=== PATIENT | female | born 1980 | race Caucasian/White ===

== ENCOUNTER 2016-07-20 07:16 | Emergency (ER) | payer MEDICAID ==
[2012-08-22 20:19] VITALS: BMI 25.0
== END 2016-07-20 08:49 | disposition home or self-care (01) ==
LOC: D.ER 07:16
DX: S01.01XA Laceration without foreign body of scalp, initial encounter (principal); W19.XXXA Unspecified fall, initial encounter; Y93.89 Activity, other specified; Y92.019 Unspecified place in single-family (private) house as the place of occurrence of the external cause

== ENCOUNTER 2017-03-13 08:47 | Emergency (ER) | payer MEDICAID ==
[2012-08-22 20:19] VITALS: BMI 25.0
[2017-03-13 11:17] LABS: BASOPHILS 0.4 % (0-2); EOSINOPHILS 2.9 % (0-7); HEMATOCRIT 42.4 % (36.0-48.0); HEMOGLOBIN 14.2 g/dL (12-16); IMMATURE GRANULOCYTES 0.7 % (0-5); LYMPHOCYTES 23.9 % (15-50); MCH 30.7 pg (26.0-34.0); MCHC 33.5 g/dL (31.0-37.0); MCV 91.6 fL (80.0-100.0); MEAN PLATELET VOLUME 9.3 fL (7.4-10.4); MONOCYTES 5.7 % (2-11); NEUTROPHILS 66.4 % (40-80); PLATELET COUNT 291 10x3/uL (130-400); RBC 4.63 10x6/uL (4.00-5.40); WBC 8.9 10x3/uL (4.8-10.8)
[2017-03-13 11:37] LABS: ALBUMIN 3.8 g/dL (3.4-5.0); ALKALINE PHOSPHATASE 110 U/L (46-116); ALT (SGPT) 39 U/L (10-68); CALC OSMOLALITY 278 mosm/kg (275-300); CALCIUM 9.4 mg/dL (8.5-10.1); CARBON DIOXIDE 28.3 mmol/L (21.0-32.0); CHLORIDE - SERUM 104 mmol/L (98-107); CREATININE - SERUM 0.6 mg/dL (0.6-1.3); GLUCOSE 103 mg/dL (74-106); POTASSIUM - SERUM 3.5 mmol/L (3.5-5.1); PROTEIN - SERUM 7.9 g/dL (6.4-8.2); SODIUM 139 mmol/L (136-145); UREA NITROGEN 15 mg/dL (7-18); eGFR NON AFRICAN AMERICAN > 90 mL/min (90-120)
== END 2017-03-13 12:18 | disposition home or self-care (01) ==
LOC: D.ER 08:47
PROVIDERS: Emergency Medicine
DX: R56.9 Unspecified convulsions (principal)

== ENCOUNTER 2019-05-31 10:05 | Emergency (ER) | payer MEDICAID ==
[2019-05-31 10:09] VITALS: Ht 165.1 cm
[2019-05-31] MEDS ORDERED: TRILEPTAL600 MG PO (10:10)
[2019-05-31] MEDS ORDERED: FOLIC ACID1 MG PO (10:11)
[2019-05-31] MEDS ORDERED: VOLTAREN75 MG PO (10:11)
[2019-05-31] MEDS ORDERED: PEPCID AC20 MG PO (10:11)
[2019-05-31] MEDS ORDERED: BUSPAR 15 MG TA15 MG PO (10:11)
[2019-05-31] MEDS ORDERED: LIORESAL 10 MG10 MG PO (10:11)
[2019-05-31 11:06] LABS: BASOPHILS 0.1 % (0-2); EOSINOPHILS 0.6 % (0-7); HEMATOCRIT 31.5 % (36.0-48.0); HEMOGLOBIN 9.7 g/dL (12-16); IMMATURE GRANULOCYTES 1.3 % (0-5); LYMPHOCYTES 8.9 % (15-50); MCH 26.8 pg (26.0-34.0); MCHC 30.8 g/dL (31.0-37.0); MEAN PLATELET VOLUME 8.3 fL (7.4-10.4); MONOCYTES 8.4 % (2-11); NEUTROPHILS 80.7 % (40-80); RBC 3.62 10x6/uL (4.00-5.40); WBC 14.5 10x3/uL (4.8-10.8)
[2019-05-31 11:09] LABS: PLATELET COUNT 642 10x3/uL (130-400)
[2019-05-31 11:27] LABS: CALC OSMOLALITY 280 mosm/kg (275-300); CALCIUM 9.2 mg/dL (8.5-10.1); CHLORIDE - SERUM 102 mmol/L (98-107); CREATININE - SERUM 0.8 mg/dL (0.6-1.3); GLUCOSE 124 mg/dL (74-106); POTASSIUM - SERUM 3.6 mmol/L (3.5-5.1); SODIUM 140 mmol/L (136-145); UREA NITROGEN 14 mg/dL (7-18); eGFR NON AFRICAN AMERICAN 84 mL/min (90-120)
[2019-05-31 11:43] LABS: ALKALINE PHOSPHATASE 219 U/L (46-116); ALT (SGPT) 27 U/L (10-68); BILIRUBIN - TOTAL 0.62 mg/dL (0.2-1.3); PROTEIN - SERUM 8.5 g/dL (6.4-8.2); THYROID STIMULATING HORMONE 1.91 uIU/mL (0.36-3.74)
[2019-05-31 15:20] LABS: APPEARANCE CLEAR (CLEAR); BILIRUBIN NEGATIVE (NEGATIVE); COLOR DK YELLOW (YELLOW); GLUCOSE NEGATIVE (NEGATIVE); KETONE SMALL mg/dL (NEGATIVE); NITRITE NEGATIVE (NEGATIVE); PROTEIN 2+ mg/dL (NEGATIVE)
[2019-05-31 15:22] LABS: BACTERIA MODERATE /hpf (NEGATIVE); RED CELLS - URINE 0-5 /hpf (0-5); WHITE CELLS - URINE 0-5 /hpf (NEGATIVE)
[2019-05-31 15:23] LABS: MUCUS <1+ /lpf (NONE SEEN)
[2019-05-31] MEDS ORDERED: ZOFRAN4 MG PO (15:51)
[2019-05-31] MEDS ORDERED: MACROBID100 MG PO (15:51)
[2019-05-31] MEDS ORDERED: TESSALON PERLE100 MG PO (15:51)
[2019-05-31 16:18] VITALS: BP 137/80
== END 2019-05-31 16:18 | disposition home or self-care (01) ==
LOC: D.ER 10:05
PROVIDERS: Family Medicine
DX: B34.9 Viral infection, unspecified (principal); D64.9 Anemia, unspecified; N39.0 Urinary tract infection, site not specified; G80.9 Cerebral palsy, unspecified; R05 Cough

== ENCOUNTER 2019-06-19 11:13 | Inpatient (IN) | payer MEDICARE ==
[~2019-06-19] VITALS: Ht 165.1 cm; Wt 66.9 kg
--- NOTE | ~2019-06-19 | HEMODYNAMI ---
PATIENT:SCOTTIE CURRIE MEDICAL RECORD: [id number] : 76 LOCATION:D.MS Adam ADMISSION DATE: 06/19/19 Generatedon:07/07/201912:42 Patient name: SCOTTIE CURRIE Patient #: [id number] SSN: : Date of study: 07/07/2019 Page: Of Hemodynamic Procedure Report Patient Data Patient Demographics Procedure consent was obtained First Name: SCOTTIE Gender: Female Last Name: KUSH : 1980 [facility] Initial: L Age: 39 year(s) Patient #: [id number] Race: Unknown Additional ID: [id number] Contact details [address]: [address] [place] [address] State: [place] City: [place] Zip code: [address] Past Medical History Allergies: No known allergies Admission Admission Data Admission Date: 06/19/2019 Admission Time: 17:13 [facility] [place] Height (in.): 65 BSA: 1.74 (m2) Height (cm.): 165.1 BMI: 24.46 (kg/m2) Weight (lbs.): 147 Weight (kg.): 66.68 Procedure Procedure Types Cath Procedure Peripheral Cath Diagnostic Procedure Lay Ups Assembler Peripheral Procedures Gastric G Tube Placement Procedure Description Procedure Date Procedure Date: 07/07/2019 Procedure Start Time: 11:37 Procedure Staff Name Function James Allan MD Performing Physician Susan Quinones RT Image Assembler Nicole Luna RN Nurse Arron Wyatt RT Scrub Procedure Data Cath Procedure Fluoroscopy Diagnostic fluoroscopy Total fluoroscopy Time: 17 time: 17 min min Diagnostic fluoroscopy Total fluoroscopy dose: 380 dose: 380 mGy mGy Contrast Material Contrast Material Type Amount (ml) Isovue 300 12 Diagnostic catheters Device Type Used For End Catheter Placement Merit Impress KA2 5Fr 65CM catheter ([id number]) MIREYA introducer ([id number]) Procedure Medications Medication Administration Route Dosage Heparin Flush Bag added to field 1 bags (1000units/500ml NS) Lidocaine 1% added to field 20 Hemodynamics Rest BSA: 1.74 (m2) O2 Consumption: Estimated: 199.91 (ml/min) O2 Consumption indexed : Estimated:114.89 (ml/min/m) Heart Rate: 106 (bpm) Snapshots Pre Cath Intra NCS Post Cath Vital Signs Time Heart Resp SPO2 etCO2 NIBP Rhythm Pain Sedation Rate (ipm) (%) (mmHg) (mmHg) Status Level (bpm) 11:20:31 106 37 85 32.2 112/78(87) NSR 0 (11) 10(A) , No pain 11:24:31 112 26 97 29.1 124/81(98) NSR 0 (11) 10(A) , No pain 11:28:39 95 22 98 35.2 101/64(84) NSR 0 (11) 10(A) , No pain 11:32:40 92 26 98 30.6 100/66(80) NSR 0 (11) 10(A) , No pain 11:36:44 91 29 99 23.7 90/59(75) NSR 0 (11) 10(A) , No pain 11:40:40 94 43 88 13.7 105/69(84) NSR 0 (11) 10(A) , No pain 11:44:41 98 25 95 41.3 112/71(83) NSR 0 (11) 10(A) , No pain 11:48:49 95 38 100 38.3 102/62(79) NSR 0 (11) 10(A) , No pain 11:52:53 95 32 100 35.9 98/60(74) NSR 0 (11) 10(A) , No pain 11:56:57 95 27 99 38.2 96/59(77) NSR 0 (11) 10(A) , No pain 12:01:00 93 18 99 35.9 87/54(68) NSR 0 (11) 10(A) , No pain 12:04:58 98 14 99 35.9 105/66(77) NSR 0 (11) 10(A) , No pain 12:09:00 99 25 99 34.4 92/65(77) NSR 0 (11) 10(A) , No pain 12:12:57 100 27 99 30.6 92/65(77) NSR 0 (11) 10(A) , No pain 12:16:55 99 19 99 31.3 98/66(77) NSR 0 (11) 10(A) , No pain 12:20:55 99 21 99 34.4 98/72(79) NSR 0 (11) 10(A) , No pain 12:24:52 100 28 99 30.6 103/75(86) NSR 0 (11) 10(A) , No pain 12:28:54 98 23 99 29 108/70(82) NSR 0 (11) 10(A) , No pain 12:33:30 96 16 98 14.5 113/73(86) NSR 0 (11) 10(A) , No pain 12:37:30 101 25 98 12.2 122/79(99) NSR 0 (11) 10(A) , No pain 12:41:34 106 28 98 32.1 116/82(97) NSR 0 (11) 10(A) , No pain Medications Time Medication Route Dose Verified Delivered Reason Notes Effe ctiveness by by 11:48:39 Heparin Flush added 1 James Ramirez used for Bag to bags Jerrell Allan procedure (1000units/500ml field MD TRAVIS NS) 11:48:54 Lidocaine 1% added 20ml James Ramirez for local to vial Jerrell Allan anesthetic field MD TRAVIS Procedure Log Time Note 11:10:15 Patient Height : 65 inches 11:10:21 Patient Weight : 147 lbs 11:11:06 Time tracking: Regular hours (M-F 7:00 - 5:00) 11:11:29 Plan of Care:Hemodynamics will remain stable., Cardiac rhythm will remain stable., Comfort level will be maintained., Respiratory function will remain adequate., Patient/ family verbilizes understanding of procedure., Procedure tolerated without complication., Recovers from procedure without complications.. 11:11:43 Patient received from Med/Surg to IR Alert and oriented. Tansferred to table in Supine position. 11:11:48 Signed procedure consent form obtained from guardian. 11:11:57 H&P Date Dictated: 07/07/2019 Within 30 days and on chart.. 11:12:06 Unable to provide pre-op teaching due to educational barrier. ? 11:12:15 Family in waiting room. 11:12:18 Patient NPO since Midnight. 11:12:29 Patient allergic to No known allergies 11:12:36 Is the patient allergic to Iodine/contrast media? No. 11:12:41 Is patient on blood thinner?No 11:12:54 Patient diabetic? No. 11:12:56 - 11:13:00 ----Pre-sedation anethsthesia assessment.----see anesthesia notes for monitoring of patient during procedure 11:13:07 Previous problem with sedation/anesthesia? No ? 11:13:32 - 11:13:37 Use device set IR Diagnostic 11:13:39 Sterile Angiographic Pack opened to sterile field. 11:13:40 Bag Decanter (2002S) opened to sterile field. 11:13:50 GLIDE CATHETER 5FR ANGLED 65cm (CG507) opened to sterile field. 11:14:20 IV patent on arrival in right forearm with D5/.45%NaCl at KVO. 11:14:29 Right abdomen area was prepped with chlora-prep and draped in sterile fashion 11:14:31 - 11:19:36 ECG and BP/O2 sat monitors applied to patient. 11:19:37 Vital chart was started 11:19:39 Baseline sample Acquired. 11:19:40 Full Disclosure recording started 11:19:41 - 11:19:45 Baseline sample Acquired. 11:19:54 Baseline sample Acquired. 11:20:35 Baseline sample Acquired. 11:21:10 MCFADDEN 260 wire (L62575) opened to sterile field. 11:35:44 - 11:35:47 Physician arrived 11:35:48 --------ALL STOP TIME OUT------ 11:35:49 Final Timeout: patient, procedure, and site verified with staff and physician. All members of the team are in agreement. 11:36:59 Fire Safety Assessment: A--An alcohol-based skin anteseptic being used preoperatively., C--Open oxygen or nitrous oxide is being used. 11:37:05 Procedure started. 11:37:10 Local anesthetic to Abdominal area with Lidocaine 1% by James Allan MD.INITIAL ACCESS ONLY 11:46:34 YUCH needle opened to sterile field. 11:46:35 STOPCOCK 3-Way Large Bore ([id number]) opened to sterile field. 11:46:36 GLIDE WIRE Angled Super Stiff 180cm (UO3507) opened to sterile field. 11:48:39 Heparin Flush Bag (1000units/500ml NS) 1 bags added to field was administered by James Allan MD; used for procedure; Verbal order read back and verified. 11:48:54 Lidocaine 1% 20ml vial added to field was administered by James pat MD; for local anesthetic; Verbal order read back and verified. 11:59:08 GASTRO-ENTERIC 18Fr RM Feeding Tube ([id number]) opened to sterile field. 12:03:37 TORQUE DEVICE PLASTIC .038 ( TD01) opened to sterile field. 12:03:40 A Merit Impress KA2 5Fr 65CM catheter ([id number]) was advanced over the wire and used for . 12:03:[address] Peel-[address]-Way Introducer 22Fr opened to sterile field. 12:03:42 INFLATOR BasixTOUCH (AY8978) opened to sterile field. 12:04:40 Inflate balloon Inflation number: 1 A EVERCROSS 8 X 80 X 135 BALLOON ([id number]( was prepped and advanced across the Undefined1 , then inflated. 12:12:53 A MIREYA introducer (A52880) was advanced over the wire . 12:21:48 Kvng 5Fr OTW embolectomy catheter opened to sterile field. 12:37:16 Procedure ended.(Physican Out) 12:37:40 Fluoroscopy time 17.00 minutes. 12:37:49 Fluoroscopy dose: 380 mGy 12:37:49 Flurop Dose total: 380 12:40:50 Contrast amount:Isovue 300 12ml. 12:40:53 Procedure and supply charges have been captured, reviewed, submitted an d are correct. 12:41:20 Report given to Med/Surg. 12:42:07 Vital chart was stopped Intervention Summary Intervention Notes Time ActionType Lesion and Equipment Used Action# Pressure Duration Attributes 12:04:40 Inflate Undefined1 EVERCROSS 8 X 1 0 00:00 balloon 80 X 135 BALLOON ([id number]( Device Usage Item Name Manufacture Quantity Catalog Number Hospital Part Current M inimal Lot# / Charge Number Stock Stock Serial# Code [facility] 1 [id number] 072634 191441 5 Angiographic Health Pack Bag Decanter Microtek 016924 34489 997629 5 () [employer] GLIDE CATHETER Terumo 1 CG507 844535 978143 5 5FR ANGLED 65cm (CG507) MCFADDEN 260 wire [employer] 1 T47506 795312 09026 178516 5 ([id number]) YUCH needle [employer] 1 P48686 656078 018306 5 [id number] STOPCOCK 3-Way [employer] 1 K87966 184095 2620 484855 5 [id number] Large Bore ([id number]) GLIDE WIRE Terumo 1 EB0150 536557 744835 5 Angled Super Stiff 180cm (UF1274) GASTRO-ENTERIC [place] 1 0100-16LV 060664 553522 5 16Fr Thinglink [facility] Feeding Tube ([id number]) TORQUE DEVICE [place] 1 TD01 933637 408935 270762 5 PLASTIC .038 ( Scientific TD01) Merit Impress Merit 1 [id number] 749538 932403 5 KA2 5Fr 65CM Medical catheter ([id number]) Peel-A-Way [employer] 1 Y91543 292950 458842 935354 5 [id number] Introducer 22Fr INFLATOR Merit 1 SI8310 894791 732693 642781 5 Medminder (YP6636) EVERCROSS 8 X Medtronic 1 [id number] 335583 835506 1 80 X 135 BALLOON ([id number]( MIREYA [employer] 1 O01908 262958 087667 5 introducer (K13274) Kvng 5Fr OTW Anaya 1 [id number] 971461 872890 363978 5 embolectomy Lifesciences catheter Signature Audit [place] Stage Time Signature Unsigned Intra-Procedure 07/07/2019 Susan Quinones 12:42:03 PM RT(R) [address] [place] [address]
[~2019-06-19 11:13] MED LIST: BUSPAR 15 MG TA15 MG PO; FOLIC ACID1 MG PO; LIORESAL 10 MG10 MG PO; MACROBID100 MG PO; PEPCID AC20 MG PO; TESSALON PERLE100 MG PO; TRILEPTAL600 MG PO; VOLTAREN75 MG PO; ZOFRAN4 MG PO
[2019-06-19 11:49] LABS: BASOPHILS 0.2 % (0-2); EOSINOPHILS 0.1 % (0-7); HEMATOCRIT 25.5 % (36.0-48.0); HEMOGLOBIN 7.6 g/dL (12-16); IMMATURE GRANULOCYTES 1.1 % (0-5); LYMPHOCYTES 10.2 % (15-50); MCH 24.7 pg (26.0-34.0); MCHC 29.8 g/dL (31.0-37.0); MCV 82.8 fL (80.0-100.0); MEAN PLATELET VOLUME 8.2 fL (7.4-10.4); MONOCYTES 10.7 % (2-11); NEUTROPHILS 77.7 % (40-80); PLATELET COUNT 878 10x3/uL (130-400); RBC 3.08 10x6/uL (4.00-5.40); RDW 15.9 % (11.5-14.5); WBC 14.3 10x3/uL (4.8-10.8)
--- NOTE | 2019-06-19 11:54 | NUR ---
GUAIC NEGATIVE, DR ARAIZA NOTIFIED
[2019-06-19 12:02] LABS: CALC OSMOLALITY 279 mosm/kg (275-300); CALCIUM 9.7 mg/dL (8.5-10.1); CARBON DIOXIDE 30.8 mmol/L (21.0-32.0); CHLORIDE - SERUM 98 mmol/L (98-107); CREATININE - SERUM 0.8 mg/dL (0.6-1.3); GLUCOSE 114 mg/dL (74-106); POTASSIUM - SERUM 3.5 mmol/L (3.5-5.1); SODIUM 140 mmol/L (136-145); UREA NITROGEN 13 mg/dL (7-18); eGFR NON AFRICAN AMERICAN 84 mL/min (90-120)
[2019-06-19 12:11] LABS: ALKALINE PHOSPHATASE 152 U/L (46-116); ALT (SGPT) 15 U/L (10-68); AMYLASE - SERUM 9 U/L (25-115); BILIRUBIN - TOTAL 0.46 mg/dL (0.2-1.3); LIPASE 69 U/L (73-393); PROTEIN - SERUM 8.9 g/dL (6.4-8.2); TROPONIN-I < 0.017 ng/mL (0.000-0.060)
[2019-06-19 12:18] LABS: ALBUMIN 1.7 g/dL (3.4-5.0)
[2019-06-19 13:19] LABS: HCG SERUM NEGATIVE (NEGATIVE)
[2019-06-19 14:40] LABS: APPEARANCE CLEAR (CLEAR); BILIRUBIN NEGATIVE (NEGATIVE); COLOR YELLOW (YELLOW); GLUCOSE NEGATIVE (NEGATIVE); KETONE NEGATIVE (NEGATIVE); NITRITE NEGATIVE (NEGATIVE); PROTEIN TRACE mg/dL (NEGATIVE); UROBILINOGEN NORMAL (NORMAL)
[2019-06-19 14:41] LABS: WHITE CELLS - URINE 0-5 /hpf (NEGATIVE)
[2019-06-19 14:42] LABS: BACTERIA FEW /hpf (NEGATIVE); EPITHELIAL CELLS 0-5 /hpf (0-5); RED CELLS - URINE 0-5 /hpf (0-5)
[2019-06-19 15:42] VITALS: BP 115/73
[2019-06-19 17:00] VITALS: BP 110/66
[2019-06-19 18:23] LABS: INR 1.43 (0.85-1.17); PROTIME 16.8 SECONDS (11.6-15.0)
[2019-06-19 18:24] LABS: APTT 71.6 SECONDS (22.8-39.4)
--- NOTE | 2019-06-19 20:18 | NUR ---
RECEIVED TO ROOM VIA STRECHER FROM ER. ALERT.ORIENTED.THREE AFFILIATED LIMITED SPEECH. HAS HX OF CP. MOTHER AT BEDSIDE TO ANSWER QUESTIONS. SPO2 @ 87 %. O2 @ 2L PER NC PLACED. SPO2 @ 96 %. IV TO RAC WITHOUT REDNESS OR EDEMA NOTED. ORIENTED TO ROOM. CL IN REACH
--- NOTE | 2019-06-19 22:38 | NUR ---
PRBC STARTED TO RAC WITH NO REACITONS NOTED. WILL CONTINUE TO MONITOR AND NOTE CHANGES.
[2019-06-20] VITALS (8 sets, daily range): BP systolic 100–137; BP diastolic 60–77; BMI 24.5
--- NOTE | 2019-06-20 02:20 | NUR ---
PRBC COMPLETED WITH NO REACTIONS NOTED. MOTHER AT BEDSIDE.
[2019-06-20 05:14] LABS: BASOPHILS 0.2 % (0-2); EOSINOPHILS 0.6 % (0-7); HEMATOCRIT 26.7 % (36.0-48.0); IMMATURE GRANULOCYTES 0.9 % (0-5); LYMPHOCYTES 9.4 % (15-50); MCH 25.4 pg (26.0-34.0); MCV 84.8 fL (80.0-100.0); MEAN PLATELET VOLUME 8.2 fL (7.4-10.4); NEUTROPHILS 77.9 % (40-80); PLATELET COUNT 842 10x3/uL (130-400); RBC 3.15 10x6/uL (4.00-5.40); RDW 15.9 % (11.5-14.5); WBC 12.4 10x3/uL (4.8-10.8)
[2019-06-20 05:26] LABS: ALBUMIN 1.4 g/dL (3.4-5.0); ALKALINE PHOSPHATASE 129 U/L (46-116); ALT (SGPT) 12 U/L (10-68); BILIRUBIN - TOTAL 0.35 mg/dL (0.2-1.3); CALC OSMOLALITY 283 mosm/kg (275-300); CALCIUM 9.1 mg/dL (8.5-10.1); CARBON DIOXIDE 31.3 mmol/L (21.0-32.0); CHLORIDE - SERUM 102 mmol/L (98-107); CREATININE - SERUM 0.7 mg/dL (0.6-1.3); GLUCOSE 99 mg/dL (74-106); MAGNESIUM - SERUM 2.5 mg/dL (1.8-2.4); PROTEIN - SERUM 8.1 g/dL (6.4-8.2); SODIUM 142 mmol/L (136-145); UREA NITROGEN 14 mg/dL (7-18); eGFR NON AFRICAN AMERICAN > 90 mL/min (90-120)
[2019-06-20 08:42] LABS: % SATURATION 12 % (15-55); IRON 17 ug/dl (35-150); TOTAL IRON BIND CAPACITY 134 ug/dl (260-445); UNSAT IRON BIND CAPACITY 117 ug/dl (150-375)
--- NOTE | 2019-06-20 10:55 | NUR ---
RESTING IN BED, MOTHER IN ROOM, IV INFUSING, CONT TO MONITOR FOR BLEEDING, SUPP GIVEN PER RECTUM, WILL OBTAIN STOOL SPECIMEN
--- NOTE | 2019-06-20 14:53 | NUR ---
1350 TAKEN TO IR FOR PROCEDURE
[2019-06-20 15:28] LABS: BASOPHILS 0.1 % (0-2); EOSINOPHILS 0.6 % (0-7); HEMATOCRIT 26.2 % (36.0-48.0); HEMOGLOBIN 8.1 g/dL (12-16); LYMPHOCYTES 8.4 % (15-50); MCHC 30.9 g/dL (31.0-37.0); MCV 84.2 fL (80.0-100.0); MEAN PLATELET VOLUME 8.3 fL (7.4-10.4); MONOCYTES 9.5 % (2-11); NEUTROPHILS 80.4 % (40-80); PLATELET COUNT 859 10x3/uL (130-400); RBC 3.11 10x6/uL (4.00-5.40); RDW 15.7 % (11.5-14.5); WBC 13.6 10x3/uL (4.8-10.8)
[2019-06-20 15:29] LABS: PROTEIN - BODY FLUID 5.4 G/DL
[2019-06-20 15:33] LABS: NEUT - BF 87 %
[2019-06-20 15:36] LABS: CALC OSMOLALITY 282 mosm/kg (275-300); CALCIUM 8.2 mg/dL (8.5-10.1); CHLORIDE - SERUM 104 mmol/L (98-107); CREATININE - SERUM 0.6 mg/dL (0.6-1.3); GLUCOSE 99 mg/dL (74-106); POTASSIUM - SERUM 3.9 mmol/L (3.5-5.1); SODIUM 142 mmol/L (136-145); UREA NITROGEN 12 mg/dL (7-18); eGFR NON AFRICAN AMERICAN > 90 mL/min (90-120)
[2019-06-20 15:37] LABS: INR 1.47 (0.85-1.17); PROTIME 17.3 SECONDS (11.6-15.0)
[2019-06-20 15:38] LABS: APTT 58.9 SECONDS (22.8-39.4)
--- NOTE | 2019-06-21 02:32 | NUR ---
Slowed fluids down to 100ml/hr per order. Fluids were running at 200ml/hr.
[2019-06-21 04:00] VITALS: BP 105/67
[2019-06-21 05:34] LABS: BASOPHILS 0.1 % (0-2); EOSINOPHILS 1.4 % (0-7); HEMATOCRIT 27.5 % (36.0-48.0); HEMOGLOBIN 8.2 g/dL (12-16); LYMPHOCYTES 6.9 % (15-50); MCH 25.2 pg (26.0-34.0); MCHC 29.8 g/dL (31.0-37.0); MCV 84.6 fL (80.0-100.0); MEAN PLATELET VOLUME 8.3 fL (7.4-10.4); MONOCYTES 11.6 % (2-11); PLATELET COUNT 824 10x3/uL (130-400); RBC 3.25 10x6/uL (4.00-5.40); RDW 15.9 % (11.5-14.5); WBC 11.2 10x3/uL (4.8-10.8)
[2019-06-21 05:41] LABS: ALKALINE PHOSPHATASE 129 U/L (46-116); ALT (SGPT) 12 U/L (10-68); BILIRUBIN - TOTAL 0.24 mg/dL (0.2-1.3); CALCIUM 8.3 mg/dL (8.5-10.1); CARBON DIOXIDE 26.9 mmol/L (21.0-32.0); CHLORIDE - SERUM 108 mmol/L (98-107); CREATININE - SERUM 0.6 mg/dL (0.6-1.3); GLUCOSE 115 mg/dL (74-106); MAGNESIUM - SERUM 2.3 mg/dL (1.8-2.4); PROTEIN - SERUM 7.5 g/dL (6.4-8.2); SODIUM 143 mmol/L (136-145); eGFR NON AFRICAN AMERICAN > 90 mL/min (90-120)
[2019-06-21 05:49] LABS: ALBUMIN 1.2 g/dL (3.4-5.0); CALC OSMOLALITY 283 mosm/kg (275-300); UREA NITROGEN 8 mg/dL (7-18)
[2019-06-21 09:37] VITALS: BP 131/73
--- NOTE | 2019-06-21 10:37 | NUR ---
RESTING IN BED, MOTHER IN ROOM, NO DISTRESS NOTED, WILL CONT IV FLUIDS AND MIRALAX, NEED STOOL SPECIMEN
[2019-06-21 12:05] VITALS: BP 115/67
[2019-06-21 15:58] VITALS: BP 113/62
--- NOTE | 2019-06-21 20:10 | NUR ---
AWAKE,ALERT.WATCHING TV QUEITLY. NO CONCERNS NOTED. NO DISTRESS NOTED. IV TO RAC INTACT WITHOUT REDNESS OR EDEMA NOTED. CL IN REACH
[2019-06-21 20:51] VITALS: BP 104/57
[2019-06-22] VITALS: BP 134/82
[2019-06-22 00:21] VITALS: BP 115/60
--- NOTE | 2019-06-22 01:43 | NUR ---
I have reviewed this patient and I concur with the Shift Assessment completed by the Licensed Practical Nurse today this shift.
[2019-06-22 05:08] VITALS: BP 117/80
[2019-06-22 05:41] LABS: ALBUMIN 1.2 g/dL (3.4-5.0); ALKALINE PHOSPHATASE 140 U/L (46-116); BILIRUBIN - TOTAL 0.32 mg/dL (0.2-1.3); CALCIUM 8.1 mg/dL (8.5-10.1); CHLORIDE - SERUM 107 mmol/L (98-107); CREATININE - SERUM 0.5 mg/dL (0.6-1.3); GLUCOSE 119 mg/dL (74-106); MAGNESIUM - SERUM 2.1 mg/dL (1.8-2.4); SODIUM 143 mmol/L (136-145); eGFR NON AFRICAN AMERICAN > 90 mL/min (90-120)
[2019-06-22 05:43] LABS: ALT (SGPT) 16 U/L (10-68); CALC OSMOLALITY 282 mosm/kg (275-300); POTASSIUM - SERUM 3.3 mmol/L (3.5-5.1); UREA NITROGEN 4 mg/dL (7-18)
[2019-06-22 06:01] LABS: BASOPHILS 0.1 % (0-2); EOSINOPHILS 1.3 % (0-7); HEMATOCRIT 25.3 % (36.0-48.0); HEMOGLOBIN 7.7 g/dL (12-16); IMMATURE GRANULOCYTES 0.9 % (0-5); LYMPHOCYTES 8.4 % (15-50); MCH 25.2 pg (26.0-34.0); MCHC 30.4 g/dL (31.0-37.0); MCV 82.7 fL (80.0-100.0); MONOCYTES 10.8 % (2-11); NEUTROPHILS 78.5 % (40-80); RBC 3.06 10x6/uL (4.00-5.40); RDW 16.4 % (11.5-14.5); WBC 11.2 10x3/uL (4.8-10.8)
[2019-06-22 06:05] LABS: PLATELET COUNT 659 10x3/uL (130-400)
--- NOTE | 2019-06-22 07:55 | NUR ---
PT LYING IN BED WITH MOTHER AT BEDSIDE, MOTHER INQUIRED ON WHEN BONE BIOPSY WILL BE DONE. EXPLAINED HARD TO GIVE A TIME AND KNOW WHEN SPECIALS WILL BE IN BUT ORDERS HAVE BEEN PUT INTO COMPUTER. CONSENTS SIGNED, PT HAS BEEN NPO ALL NIGHT, NO NEEDS VOICED BY PATIENTS ALL QUESTIONS ANSWERED BEST POSSIBLE, WILL CONTINUE WITH PLAN OF CARE
[2019-06-22 08:00] LABS: INR 1.35 (0.85-1.17); PROTIME 16.1 SECONDS (11.6-15.0)
[2019-06-22 08:01] LABS: APTT 59.7 SECONDS (22.8-39.4)
[2019-06-22 08:23] VITALS: BP 131/73
--- NOTE | 2019-06-22 09:25 | NUR ---
PT'S ORDERS ARE TO HAVE A UNIOT OF BLOOD IF PT HGB LESS THAN 8. ORDERED ANOTHER UNIT OF BLOOD FOR TODAY AND WILL TRANSFUSE ONCE READY.
--- NOTE | 2019-06-22 09:26 | NUR ---
I have reviewed this patient and I concur with the Shift Assessment completed by the Licensed Practical Nurse today this shift.
--- NOTE | 2019-06-22 11:45 | NUR ---
STARTED PT 1UNIT OF BLOOD PT LYING IN BED MOTHER AT BEDSIDE CONTINUE WITH PLAN OF CARE
[2019-06-22 12:29] VITALS: BP 122/77
[2019-06-22 12:49] VITALS: Ht 165.1 cm; Wt 66.9 kg
--- NOTE | 2019-06-22 13:24 | NUR ---
PT LYING IN BED WITH MOTHER AT BEDSIDE, UNIT OF BLOOD STILL TRANSFUSING, NO S/SX OF DISTRESS, CL IN REACH BED IN LOWEST POSITION, CONTINUE WITH PLAN OF CARE
--- NOTE | 2019-06-22 14:55 | MORECARE ---
CASE MANAGEMENT DISCHARGE SUMMARY PATIENT: SCOTTIE CURRIE UNIT: [id number] ADM DATE: 06/19/19 AGE: 39 : [birth year] SEX: F ROOM/BED: D.2202 AUTHOR: VERITODOC PHYSICIAN: REFERRING PHYSICIAN: JADON SMITH MD DATE OF SERVICE: 06/22/19 Discharge Plan Patient Name: SCOTTIE CURRIE Facility: [facility]:[place] : 1980 Planned Disposition: Home or Self Care Anticipated Discharge Date: Discharge Date: Expected LOS: Initial Reviewer: [email or web address] Initial Review Date: 06/19/2019 Generated: 06/22/19 3:54 pm Comments DCP- Discharge Planning Updated by [email or web address]: Donna Bledsoe on 06/22/19 1:[address] Patient Name: SCOTTIE CURRIE Admission Status: ER Accout number: [id number] Admission Date: 06-19-2019 : 1980 Admission Diagnosis: Attending: JADON SMITH Current LOS: 3 Anticipated DC Date: Planned Disposition: Home or Self Care Primary Insurance: [place]ICAID [place] Discharge Planning Comments: CM met with patient to complete initial dc planning assessment. CM educated patient on the CM role and verbal consent given by patient to complete assessment. Patient lives at home with her mother where she is partially independent with her care at home. Her mother helps her with her medications at home. At discharge patient plans to return home and feels this is a safe discharge. CM discussed availability of home health, rehab services, and medical equipment. Patient has a walker at home, that she uses sometimes. Patient denied known discharge needs at this time. Patient did not want home health at this time. CM will continue to follow and will assist as needed with dc plans/needs. Form Builder Helper: Donna Bledsoe DCPIA - Discharge Planning Initial Assessment Updated by [email or web address]: Donna Bledsoe on 06/22/19 2:48 pm * Is the patient Alert and Oriented? Yes * How many steps to enter\exit or inside your home? * PCP [facility] * [facility] * Preadmission Environment Home with Family * ADLs Partial Dependent * Partial ADLs (Assistance needed) Medication Management * Equipment Rolling Walker * List name and contact numbers for known caregivers / representatives who currently or will assist patient after discharge: KIA GARDNER [phone] MOTHER * Verbal permission to speak to the caregivers and representatives has been obtained from the patient. N/A * Community resources currently utilized None * Additional services required to return to the preadmission environment? No * Can the patient safely return to the preadmission environment? Yes * Has this patient been hospitalized within the prior 30 days at any hospital? No Patient Name: SCOTTIE CURRIE Page [id number] at 1455 All edits/amendments must be made on the electronic document DICTATION DATE: 06/22/191453 FUR MIXER OPERATOR: OVIDIO 06/22/191453 RPT#: [id number] DC DATE: STATUS: ADM IN [facility] [address] [place] [address] END OF REPORT
--- NOTE | 2019-06-22 15:40 | NUR ---
PT UNIT OF BLOOD TRANSFUSED, BED IN LOWEST POSITION, CL IN REACH MOM AT BEDSIDE. MOTHER INQUIRED ON DR ROSALES AND IF HE WOULD BE COMING BY, TOLD HER IF HE DOES IT MAY BE AFTER CLINIC BUT I HAVE NOT HEARD ANYTHING. NO OTHER NEEDS VOICED, CONTINUE WITH PLAN OF CARE
[2019-06-22 17:08] VITALS: BP 125/78
[2019-06-23] VITALS: BP 130/76
[2019-06-23 04:00] VITALS: BP 134/73
--- NOTE | 2019-06-23 04:05 | NUR ---
I have reviewed this patient and I concur with the Shift Assessment completed by the Licensed Practical Nurse today this shift.
--- NOTE | 2019-06-23 04:10 | NUR ---
PROVIDED PATIENT MOTHER WITH HANDOUT ON IRON RISH FOODS AND FIBER RICH FOODS.
[2019-06-23 07:13] LABS: ALBUMIN 1.2 g/dL (3.4-5.0); ALKALINE PHOSPHATASE 134 U/L (46-116); ALT (SGPT) 17 U/L (10-68); BILIRUBIN - TOTAL 0.68 mg/dL (0.2-1.3); CALC OSMOLALITY 282 mosm/kg (275-300); CALCIUM 7.9 mg/dL (8.5-10.1); CARBON DIOXIDE 23.2 mmol/L (21.0-32.0); CHLORIDE - SERUM 108 mmol/L (98-107); CREATININE - SERUM 0.5 mg/dL (0.6-1.3); GLUCOSE 110 mg/dL (74-106); MAGNESIUM - SERUM 2.1 mg/dL (1.8-2.4); PROTEIN - SERUM 6.2 g/dL (6.4-8.2); SODIUM 143 mmol/L (136-145); UREA NITROGEN 5 mg/dL (7-18); eGFR NON AFRICAN AMERICAN > 90 mL/min (90-120)
[2019-06-23 07:14] LABS: POTASSIUM - SERUM 3.9 mmol/L (3.5-5.1)
[2019-06-23 07:24] LABS: BASOPHILS 0.2 % (0-2); EOSINOPHILS 0.5 % (0-7); HEMATOCRIT 29.2 % (36.0-48.0); HEMOGLOBIN 8.9 g/dL (12-16); IMMATURE GRANULOCYTES 1.5 % (0-5); MCH 24.7 pg (26.0-34.0); MCHC 30.5 g/dL (31.0-37.0); MCV 81.1 fL (80.0-100.0); MEAN PLATELET VOLUME 8.7 fL (7.4-10.4); MONOCYTES 12.2 % (2-11); NEUTROPHILS 75.6 % (40-80); PLATELET COUNT 722 10x3/uL (130-400); RDW 16.8 % (11.5-14.5); WBC 12.8 10x3/uL (4.8-10.8)
--- NOTE | 2019-06-23 07:26 | NUR ---
PT SITTING UP IN BED MOTHER AT BEDSIDE, NO S/SX OF DISTRESS, NO NEEDS VOICED BY EITHER MOM OR PT. ASSUME PT CARE
[2019-06-23 08:30] VITALS: BP 138/78
[2019-06-23 09:10] LABS: HEPATITIS C ANTIBODY <0.1 S/CO RAT (0.0-0.9)
--- NOTE | 2019-06-23 12:22 | NUR ---
I have reviewed this patient and I concur with the Shift Assessment completed by the Licensed Practical Nurse today this shift.
[2019-06-23 12:48] VITALS: BP 148/85
--- NOTE | 2019-06-23 13:32 | NUR ---
PT NAUSEOUS AND VOMITING, ADMINISTERED PRN ZOFRAN, MOTHER AT BEDSIDE, ASSISTED IN GETTING PT CLEANED UP. CL IN REACH BED IN LOWEST POSITION, CONTINUE WITH PLAN OF CARE
[2019-06-23 16:43] VITALS: BP 126/71
[2019-06-23 20:00] VITALS: BP 114/72
--- NOTE | 2019-06-23 22:44 | NUR ---
PATIENT RESTING IN BED WITH NOS/SOF DISTRESS. MOTHER AT BEDSIDE. UP TO BATROOM WITH ASSIST. MEDS TAKEN WHOLE. aLERT CAN SAY A FEW WORDS BUT MOSTLY VERY HARD TO UNDERSTAND. CALL LIGHT AND WATER IN REACH. CHECKED OFTEN FOR NEEDS AND SAFETY.
[2019-06-24 04:00] VITALS: BP 124/72
[2019-06-24 06:18] LABS: ALBUMIN 1.1 g/dL (3.4-5.0); ALKALINE PHOSPHATASE 117 U/L (46-116); ALT (SGPT) 16 U/L (10-68); BILIRUBIN - TOTAL 0.39 mg/dL (0.2-1.3); CALC OSMOLALITY 284 mosm/kg (275-300); CALCIUM 8.3 mg/dL (8.5-10.1); CARBON DIOXIDE 27.4 mmol/L (21.0-32.0); CHLORIDE - SERUM 105 mmol/L (98-107); CREATININE - SERUM 0.6 mg/dL (0.6-1.3); GLUCOSE 117 mg/dL (74-106); SODIUM 144 mmol/L (136-145); UREA NITROGEN 4 mg/dL (7-18); eGFR NON AFRICAN AMERICAN > 90 mL/min (90-120)
[2019-06-24 06:20] LABS: BASOPHILS 0.1 % (0-2); EOSINOPHILS 0.7 % (0-7); HEMATOCRIT 27.6 % (36.0-48.0); HEMOGLOBIN 8.3 g/dL (12-16); IMMATURE GRANULOCYTES 1.4 % (0-5); LYMPHOCYTES 7.2 % (15-50); MCH 24.7 pg (26.0-34.0); MCHC 30.1 g/dL (31.0-37.0); MCV 82.1 fL (80.0-100.0); MEAN PLATELET VOLUME 8.6 fL (7.4-10.4); NEUTROPHILS 77.6 % (40-80); PLATELET COUNT 624 10x3/uL (130-400); RBC 3.36 10x6/uL (4.00-5.40); RDW 16.9 % (11.5-14.5); WBC 11.8 10x3/uL (4.8-10.8)
[2019-06-24 06:38] LABS: POTASSIUM - SERUM 2.7 mmol/L (3.5-5.1)
--- NOTE | 2019-06-24 07:19 | NUR ---
potassium result in ths am 2.7 low call to YISSEL Murrieta validation scientist. Treat per protocol and have oncomming nurse inform Rounding MULTIFOCAL BUTTON GENERATOR. oncomming nurse informed, frist dose given at 0715 per protcol.
--- NOTE | 2019-06-24 07:41 | NUR ---
PT LYING IN BED WITH MOTHER AT BEDSIDE, PT K+B WAS 2.7. PM NURSE ADMINISTERED K+ PER EP. PT HGB IS 8.7 NO S/SX OF DISTRESS NO NEEDS VOICED, ASSUME PT CARE
[2019-06-24 08:39] VITALS: BP 139/81
--- NOTE | 2019-06-24 12:17 | NUR ---
PT IS LYING IN BED WITH MOTHER AT BEDSIDE, MOM INQUIRED ON WHEN 'S WOULD BE ROUNDING, ADVISED VERY HARD TO SAY THEY SEE MORE THAN JUST THIS UNIT, MOM STATES SHE JUST WANTS ASNWERS THEY HAVE BEEN IN SEVERAL DAYS WITH NO RESULTS. ASSURED HER I WILL RELAY MESSAGE IF I SEE 'Anita FIRST
[2019-06-24 12:46] VITALS: BP 144/81
[2019-06-24 16:45] VITALS: BP 113/80
--- NOTE | 2019-06-24 19:21 | NUR ---
REPORT RECEIVED, WILL CONTINUE POC. PATIENT IS AAOX4, UP WITH ASSIST. LYING IN SEMI-FOWLERS POSITION. MOTHER AT BEDSIDE. NO S/S OF DISTRESS OBSERVED, RR EVEN AND UNLABORED ON ROOM AIR. PATIENT DENIES FURTHER NEEDS AT THIS TIME. CL IN REACH, BED LOCKED AND LOWERED, WILL CTM.
[2019-06-24 20:00] VITALS: BP 126/79
--- NOTE | 2019-06-24 21:30 | NUR ---
PATIENTS MOTHER WAS INQUIRING ABOUT VASCULAR ACCESS DUE TO IV COMING OUT ON DAY NURSE AND SHE WAS UNABLE TO OBTAIN ANOTHER PIV. INFORMED PATIENT THIS NURSE WOULD CHECK ON THE CONSULT. MOTHER OF PATIENT ALSO INQUIRED ABOUT MG OF TRILEPTAL. SHE SAID PATIENT USUALLY TAKES 600MG TID BUT WAS ONLY GETTING 300MG TID. INFORMED HER THAT THIS NURSE WOULD CHECK ON THAT WELL.
--- NOTE | 2019-06-24 22:28 | NUR ---
CONSULT FOR VASCULAR ACCESS ORDERED AT THIS TIME. UNABLE TO OBTAIN PIV.
--- NOTE | 2019-06-25 05:52 | NUR ---
I have reviewed this patient and I concur with the Shift Assessment completed by the Licensed Practical Nurse today this shift.
[2019-06-25 08:45] VITALS: BP 118/87
--- NOTE | 2019-06-25 10:45 | NUR ---
I have reviewed this patient and I concur with the Shift Assessment completed by the Licensed Practical Nurse today this shift.
[2019-06-25 12:35] VITALS: BP 132/78
[2019-06-25 12:55] LABS: BASOPHILS 0.2 % (0-2); EOSINOPHILS 0.6 % (0-7); HEMOGLOBIN 8.6 g/dL (12-16); LYMPHOCYTES 9.3 % (15-50); MCH 24.4 pg (26.0-34.0); MCHC 29.7 g/dL (31.0-37.0); MCV 82.2 fL (80.0-100.0); MEAN PLATELET VOLUME 8.6 fL (7.4-10.4); MONOCYTES 10.7 % (2-11); NEUTROPHILS 77.2 % (40-80); PLATELET COUNT 598 10x3/uL (130-400); RBC 3.53 10x6/uL (4.00-5.40); WBC 11.1 10x3/uL (4.8-10.8)
[2019-06-25 13:09] LABS: ALBUMIN 1.2 g/dL (3.4-5.0); ALKALINE PHOSPHATASE 133 U/L (46-116); ALT (SGPT) 18 U/L (10-68); BILIRUBIN - TOTAL 0.54 mg/dL (0.2-1.3); CALCIUM 7.9 mg/dL (8.5-10.1); CARBON DIOXIDE 29.3 mmol/L (21.0-32.0); CHLORIDE - SERUM 104 mmol/L (98-107); GLUCOSE 117 mg/dL (74-106); PROTEIN - SERUM 6.2 g/dL (6.4-8.2); SODIUM 142 mmol/L (136-145)
[2019-06-25 13:10] LABS: CALC OSMOLALITY 281 mosm/kg (275-300); CREATININE - SERUM 0.4 mg/dL (0.6-1.3); POTASSIUM - SERUM 3.6 mmol/L (3.5-5.1); UREA NITROGEN 6 mg/dL (7-18); eGFR NON AFRICAN AMERICAN > 90 mL/min (90-120)
--- NOTE | 2019-06-25 15:51 | NUR ---
PT SITTING UP IN BED WITH MOTHER AT [facility], MOM INQUIRED IF DR ROSALES WILL BE BY TODAY, ADVISED HER I AM UNSURE OF THE SCHEDULE, PT STILL PENDING BONE BIOPSY THAT WAS DONE 2 DAYS AGO. RESULTS ARE IN WILL LET DR KNOW PT NEEDS RESULTS
[2019-06-25 17:23] VITALS: BP 141/84
--- NOTE | 2019-06-25 19:05 | NUR ---
PATIENT IS LYING IN BED WITH EYES OPEN, WITH MOTHER AT BEDSIDE. NO S/S OF ACUTE DISTRESS. NO COMPLAINTS AT THIS TIME. PATINE IV IS R AC NORMAL SALINE @ 100 ML/HR. IV IS PATENT WITHOUT REDNESS, SWELLING, OR TENDERNESS. PATIENT IS SPECIAL NEEDS AND HAS TROUBLE COMMINUCATING. PATIENT IS POST OP DAY 4 PARACENTESIS AND POST OP DAY 3 BONE MARROW BIOPSY. CALL LIGHT IN PLACE. WILL CONTINUE TO MONITOR.
[2019-06-26] VITALS: BP 132/75
--- NOTE | 2019-06-26 02:02 | NUR ---
I have reviewed this patient and I concur with the Shift Assessment completed by the Licensed Practical Nurse today this shift.
[2019-06-26 04:00] VITALS: BP 127/78
[2019-06-26 05:32] LABS: BASOPHILS 0.1 % (0-2); EOSINOPHILS 1.2 % (0-7); HEMATOCRIT 28.5 % (36.0-48.0); HEMOGLOBIN 8.5 g/dL (12-16); IMMATURE GRANULOCYTES 2.7 % (0-5); LYMPHOCYTES 9.1 % (15-50); MCH 24.4 pg (26.0-34.0); MCHC 29.8 g/dL (31.0-37.0); MCV 81.7 fL (80.0-100.0); MEAN PLATELET VOLUME 8.5 fL (7.4-10.4); MONOCYTES 10.9 % (2-11); PLATELET COUNT 580 10x3/uL (130-400); RBC 3.49 10x6/uL (4.00-5.40); RDW 17.1 % (11.5-14.5); WBC 10.7 10x3/uL (4.8-10.8)
[2019-06-26 06:17] LABS: ALBUMIN 1.2 g/dL (3.4-5.0); ALKALINE PHOSPHATASE 119 U/L (46-116); ALT (SGPT) 14 U/L (10-68); CALCIUM 8.7 mg/dL (8.5-10.1); CARBON DIOXIDE 28.9 mmol/L (21.0-32.0); CHLORIDE - SERUM 104 mmol/L (98-107); GLUCOSE 116 mg/dL (74-106); PROTEIN - SERUM 7.2 g/dL (6.4-8.2); SODIUM 144 mmol/L (136-145)
[2019-06-26 06:33] LABS: CALC OSMOLALITY 284 mosm/kg (275-300); CREATININE - SERUM 0.6 mg/dL (0.6-1.3); POTASSIUM - SERUM 2.6 mmol/L (3.5-5.1); UREA NITROGEN 3 mg/dL (7-18); eGFR NON AFRICAN AMERICAN > 90 mL/min (90-120)
--- NOTE | 2019-06-26 06:50 | NUR ---
ALERT THIS AM, DEVELOPMENTAL DELAY. FAMILY AT BEDSIDE. NO C/O PAIN. NO S/S OF ACUTE DISTRESS NOTED. POD #5 PARACENTESIS. POD #3 BONE MARROW BIOPSY. UP WITH ASSIST. ON ELECTROLYTE PROTOCOL, POTASSIUM 2.6 FOLLOWING ELECTROLYTE PROTOCOL. IV TO RIGHT AC, NS INFUSING @ 100ML/HR. SITE PATENT WITHOUT REDNESS OR SWELLING. DENIES ANY NEEDS AT THIS TIME. CALL LIGHT IN REACH. WILL CONTINUE TO MONITOR.
[2019-06-26 09:32] VITALS: BP 141/85
--- NOTE | 2019-06-26 12:40 | NUR ---
I have reviewed this patient and I concur with the Shift Assessment completed by the Licensed Practical Nurse today this shift.
--- NOTE | 2019-06-26 13:28 | NUR ---
Nutrition follow-up: Diet: regular PO intake ~50% of meals Labs reviewed Wt: 147# +BM RDN following.
[2019-06-26 13:55] VITALS: BP 132/78
[2019-06-26 18:01] VITALS: BP 147/83
--- NOTE | 2019-06-26 18:36 | NUR ---
RESTING IN BED, EYES OPEN. NO C/O PAIN. NO S/S OF ACUTE DISTRESS NOTED. DENIES ANY NEEDS AT THIS TIME. CALL LIGHT IN REACH. WILL CONTINUE TO MONITOR.
[2019-06-26 20:00] VITALS: BP 122/69
[2019-06-27 04:00] VITALS: BP 135/85
[2019-06-27 05:11] LABS: BASOPHILS 0.2 % (0-2); EOSINOPHILS 1.6 % (0-7); HEMATOCRIT 29.3 % (36.0-48.0); HEMOGLOBIN 8.6 g/dL (12-16); IMMATURE GRANULOCYTES 3.4 % (0-5); LYMPHOCYTES 8.8 % (15-50); MCH 24.3 pg (26.0-34.0); MCHC 29.4 g/dL (31.0-37.0); MCV 82.8 fL (80.0-100.0); MEAN PLATELET VOLUME 8.5 fL (7.4-10.4); MONOCYTES 10.6 % (2-11); NEUTROPHILS 75.4 % (40-80); PLATELET COUNT 604 10x3/uL (130-400); RBC 3.54 10x6/uL (4.00-5.40); RDW 17.4 % (11.5-14.5); WBC 10.2 10x3/uL (4.8-10.8)
[2019-06-27 05:26] LABS: ALBUMIN 1.2 g/dL (3.4-5.0); ALKALINE PHOSPHATASE 113 U/L (46-116); ALT (SGPT) 12 U/L (10-68); BILIRUBIN - TOTAL 0.34 mg/dL (0.2-1.3); CALCIUM 8.5 mg/dL (8.5-10.1); CARBON DIOXIDE 30.8 mmol/L (21.0-32.0); CHLORIDE - SERUM 105 mmol/L (98-107); CREATININE - SERUM 0.5 mg/dL (0.6-1.3); GLUCOSE 107 mg/dL (74-106); PHOSPHOROUS 3.5 mg/dL (2.5-4.9); SODIUM 144 mmol/L (136-145); eGFR NON AFRICAN AMERICAN > 90 mL/min (90-120)
[2019-06-27 05:27] LABS: CALC OSMOLALITY 283 mosm/kg (275-300); POTASSIUM - SERUM 3.2 mmol/L (3.5-5.1); UREA NITROGEN 4 mg/dL (7-18)
--- NOTE | 2019-06-27 06:50 | NUR ---
RESTING IN BED, EYES OPEN. FAMILY AT BEDSIDE. NO C/O PAIN. NO S/S OF ACUTE DISTRESS NOTED. NPO D/T SCHEDULED GASTRIC EMPTYING SCAN. DENIES ANY NEEDS AT THIS TIME. CALL LIGHT IN REACH. WILL CONTINUE TO MONITOR.
[2019-06-27 07:50] VITALS: BP 145/87
[2019-06-27 16:43] VITALS: BP 151/81
[2019-06-27 19:30] VITALS: BP 126/73
--- NOTE | 2019-06-27 21:19 | NUR ---
PT COUGHED UP CLEAR SPUTUM. COLLECTED SPECIMEN AND SENT TO LAB. PT LYING IN BED. NO COMPLAINTS. GAVE SCHEDULED MEDS. PT SWALLOWED PILLS WITH A DRINK OF WATER AND AFTER ABOUT 30 SECONDS, VOMITED 200 CC'S YELLOW EMESIS. GAVE ZOFRAN 4 MG IV PUSH. ABDOMEN DISTENDED AND SOFT. COMPLETE ASSESSMENT PER FLOW-SHEET. NO OTHER NEEDS. MOM AT BEDSIDE. WILL CONTINUE TO MONITOR.
[2019-06-28 00:30] VITALS: BP 121/70
--- NOTE | 2019-06-28 04:30 | NUR ---
PT VOMITED 200 CC'S GREEN BILE EMESIS. PT'S MOTHER SAID SHE DRANK JUST A SIP OF WATER RIGHT BEFORE. GAVE ZOFRAN 4 MG IV PUSH. NO OTHER NEEDS. WILL CONTINUE TO MONITOR.
[2019-06-28 05:11] VITALS: BP 122/69
[2019-06-28 06:14] LABS: ALBUMIN 1.3 g/dL (3.4-5.0); ALKALINE PHOSPHATASE 109 U/L (46-116); ALT (SGPT) 10 U/L (10-68); BILIRUBIN - TOTAL 0.29 mg/dL (0.2-1.3); CALC OSMOLALITY 283 mosm/kg (275-300); CARBON DIOXIDE 30.5 mmol/L (21.0-32.0); CHLORIDE - SERUM 106 mmol/L (98-107); CREATININE - SERUM 0.4 mg/dL (0.6-1.3); GLUCOSE 110 mg/dL (74-106); MAGNESIUM - SERUM 2.1 mg/dL (1.8-2.4); POTASSIUM - SERUM 4.2 mmol/L (3.5-5.1); PROTEIN - SERUM 6.2 g/dL (6.4-8.2); SODIUM 143 mmol/L (136-145); eGFR NON AFRICAN AMERICAN > 90 mL/min (90-120)
[2019-06-28 06:20] LABS: UREA NITROGEN 6 mg/dL (7-18)
--- NOTE | 2019-06-28 06:32 | NUR ---
PT VOMITED 250 CC'S THICK GREEN BILE. THERE APPEARED TO BE SPOTS OF THICK CLEAR SPUTUM IN WITH THE EMESIS. ZOFRAN HAD BEEN GIVEN 2 HOURS AGO. PT DOES DENIES NAUSEA NOW. WILL CONTINUE TO MONITOR.
[2019-06-28 06:43] LABS: BASOPHILS 0.3 % (0-2); EOSINOPHILS 0.9 % (0-7); HEMATOCRIT 28.2 % (36.0-48.0); HEMOGLOBIN 8.4 g/dL (12-16); IMMATURE GRANULOCYTES 3.8 % (0-5); LYMPHOCYTES 9.5 % (15-50); MCH 24.7 pg (26.0-34.0); MCHC 29.8 g/dL (31.0-37.0); MCV 82.9 fL (80.0-100.0); MEAN PLATELET VOLUME 8.8 fL (7.4-10.4); MONOCYTES 10.8 % (2-11); NEUTROPHILS 74.7 % (40-80); PLATELET COUNT 672 10x3/uL (130-400); RDW 17.5 % (11.5-14.5); WBC 11.8 10x3/uL (4.8-10.8)
--- NOTE | 2019-06-28 07:10 | NUR ---
PT RESTING IN BED. NO SIGNS OF DISTRESS. IV TO RIGHT AC PATENT NO REDNESS OR TENDERNESS. COMPLAINS OF VOMITING MEDICATIONS GIVEN. DENIES ANY FURTHER NEED AT THIS TIME. CALL LIGHT IN REACH. BED LOW POSITION. FAMILY AT BEDSIDE AT THIS TIME.
[2019-06-28 07:53] VITALS: BP 143/84
[2019-06-28 12:16] VITALS: BP 149/92
--- NOTE | 2019-06-28 15:11 | NUR ---
I have reviewed this patient and I concur with the Shift Assessment completed by the Licensed Practical Nurse today this shift.
[2019-06-28 17:04] VITALS: BP 136/71
[2019-06-28 19:30] VITALS: BP 144/82
--- NOTE | 2019-06-28 22:00 | NUR ---
PT VOMITED 300 CC'S RÍOS EMESIS AFTER TAKING HER MEDS. PT HAS BEEN GIVEN ZOFRAN 4 MG IV PUSH PRIOR TO TAKING MEDS. SMALLER PILLS STAYED DOWN. MUCINEX WAS GIVEN LAST ABOUT 15 MINUTES AFTER OTHER MEDS, PT GAGGED AND VOMITED RIGHT AFTER TAKING MUCINEX. COMPLETE ASSESSMENT PER FLOW-SHEET. KEEPING PT TURNED TO ALLEVIATE REDNESS ON BUTTOCKS. NO OTHER NEEDS. WILL REASSESS AND CONTINUE TO MONITOR. MOM AT BEDSIDE.
[2019-06-29 05:40] VITALS: BP 132/78
[2019-06-29 06:25] LABS: HEMATOCRIT 30.2 % (36.0-48.0); HEMOGLOBIN 8.8 g/dL (12-16); MCH 24.3 pg (26.0-34.0); MCHC 29.1 g/dL (31.0-37.0); MCV 83.4 fL (80.0-100.0); MEAN PLATELET VOLUME 8.7 fL (7.4-10.4); PLATELET COUNT 648 10x3/uL (130-400); RBC 3.62 10x6/uL (4.00-5.40); RDW 17.5 % (11.5-14.5); WBC 10.7 10x3/uL (4.8-10.8)
[2019-06-29 06:39] LABS: ALBUMIN 1.4 g/dL (3.4-5.0); ALKALINE PHOSPHATASE 108 U/L (46-116); ALT (SGPT) 10 U/L (10-68); BILIRUBIN - TOTAL 0.27 mg/dL (0.2-1.3); CALC OSMOLALITY 279 mosm/kg (275-300); CALCIUM 8.5 mg/dL (8.5-10.1); CARBON DIOXIDE 29.3 mmol/L (21.0-32.0); CHLORIDE - SERUM 105 mmol/L (98-107); CREATININE - SERUM 0.5 mg/dL (0.6-1.3); GLUCOSE 105 mg/dL (74-106); PHOSPHOROUS 3.6 mg/dL (2.5-4.9); PROTEIN - SERUM 7.4 g/dL (6.4-8.2); SODIUM 142 mmol/L (136-145); UREA NITROGEN 5 mg/dL (7-18); eGFR NON AFRICAN AMERICAN > 90 mL/min (90-120)
[2019-06-29 06:42] LABS: POTASSIUM - SERUM 3.1 mmol/L (3.5-5.1)
--- NOTE | 2019-06-29 07:10 | NUR ---
PT RESTING IN BED. NO SIGNS OF DISTRESS. IV TO RIGHT CHEST PATENT NO REDNESS OR TENDERNESS. ABDOMEN DISTENTED WITH NAUSEA. WILL ADDRESS. DENIES ANY FURTHER NEED AT THIS TIME. CALL LIGHT IN REACH. BED LOW POSITION. FAMILY AT BEDSIDE AT THIS TIME.
[2019-06-29 07:38] LABS: EOSINOPHILS 4 % (0-7); LYMPHOCYTES 13 % (15-50); MONOCYTES 9 % (2-11); NEUTROPHILS 72 % (40-80); PLATELET ESTIMATE INCREASED
[2019-06-29 09:03] VITALS: BP 132/86
[2019-06-29 11:22] LABS: APPEARANCE CLEAR (CLEAR); COLOR YELLOW (YELLOW); SPECIFIC GRAVITY 1.005 (1.005-1.020)
[2019-06-29 11:23] LABS: BILIRUBIN NEGATIVE (NEGATIVE); GLUCOSE NEGATIVE (NEGATIVE); KETONE SMALL mg/dL (NEGATIVE); NITRITE NEGATIVE (NEGATIVE); PROTEIN NEGATIVE (NEGATIVE); UROBILINOGEN NORMAL (NORMAL)
[2019-06-29 12:45] VITALS: BP 141/87
--- NOTE | 2019-06-29 15:50 | NUR ---
I have reviewed this patient and I concur with the Shift Assessment completed by the Licensed Practical Nurse today this shift.
[2019-06-29 17:21] VITALS: BP 147/83
[2019-06-29 19:30] VITALS: BP 141/82
--- NOTE | 2019-06-29 20:17 | NUR ---
REC'D AT CHGE OF SHIFT WALKING ROUNDS IN BED HOB UP 40 DEGREES.ABDOMEN REMAINS ROUND.BUT PALABLE.DENIES ANY C/O PAIN AT PRESENT TIME MOTHER REMAINS AT BEDSIDE. WILL CONTINUE TO MONITOR FOR ANY CHGES AND FOLLOW CURRENT PLAN OF CARE.
[2019-06-30 00:30] VITALS: BP 145/78
--- NOTE | 2019-06-30 04:19 | NUR ---
STATES IV HURTING BAD. SM. FLASH BLOOD RETURN OBTAINED CONTINUES TO ROLL AROUND IN BED STATES IT HURTS.DISCONTINUED WILL CONTINUE TO MONITOR FOR ANY FURTHER CHGES.
[2019-06-30 05:30] VITALS: BP 135/74
[2019-06-30 06:00] LABS: BASOPHILS 0.3 % (0-2); EOSINOPHILS 1.3 % (0-7); HEMATOCRIT 28.1 % (36.0-48.0); HEMOGLOBIN 8.3 g/dL (12-16); IMMATURE GRANULOCYTES 3.2 % (0-5); LYMPHOCYTES 8.7 % (15-50); MCHC 29.5 g/dL (31.0-37.0); MCV 81.2 fL (80.0-100.0); MEAN PLATELET VOLUME 9.5 fL (7.4-10.4); MONOCYTES 10.2 % (2-11); NEUTROPHILS 76.3 % (40-80); PLATELET COUNT 475 10x3/uL (130-400); RBC 3.46 10x6/uL (4.00-5.40); RDW 17.7 % (11.5-14.5); WBC 10.1 10x3/uL (4.8-10.8)
[2019-06-30 06:07] LABS: ALBUMIN 1.4 g/dL (3.4-5.0); ALKALINE PHOSPHATASE 106 U/L (46-116); ALT (SGPT) 11 U/L (10-68); BILIRUBIN - TOTAL 0.29 mg/dL (0.2-1.3); CALC OSMOLALITY 279 mosm/kg (275-300); CALCIUM 7.7 mg/dL (8.5-10.1); CARBON DIOXIDE 27.5 mmol/L (21.0-32.0); CHLORIDE - SERUM 104 mmol/L (98-107); CREATININE - SERUM 0.5 mg/dL (0.6-1.3); GLUCOSE 100 mg/dL (74-106); PHOSPHOROUS 3.5 mg/dL (2.5-4.9); POTASSIUM - SERUM 4.1 mmol/L (3.5-5.1); PROTEIN - SERUM 6.3 g/dL (6.4-8.2); SODIUM 142 mmol/L (136-145); UREA NITROGEN 5 mg/dL (7-18); eGFR NON AFRICAN AMERICAN > 90 mL/min (90-120)
[2019-06-30 09:21] VITALS: BP 139/84
--- NOTE | 2019-06-30 13:09 | NUR ---
NUTRITION F/U FAMILY AT BEDSIDE. REPORTS PT EATING ~50% OF RECENT MEALS. OFFERED TO ADD ENSURE TO MEALS, DECLINED AT THIS TIME. WILL CONTINUE TO PROVIDE DIET, MONITOR PO INTAKE. RD FOLLOWING
[2019-06-30 13:20] VITALS: BP 126/71
[2019-06-30 17:18] VITALS: BP 122/73
--- NOTE | 2019-06-30 18:10 | NUR ---
MOM HAS REMAINED AT BEDSIDE. PT IS WITHOUT DISTRESS.SHE IS WITHOUT CHANGE.CONT PLAN OF CARE
[2019-06-30 19:30] VITALS: BP 134/75
--- NOTE | 2019-06-30 23:47 | NUR ---
REC'D CHGE OF SHIFT WALKING ROUNDS IN BED WATCHING TV MOTHER AT BEDSIDE DENIES PAIN OR ANY OTHER DISCOMFORT AT PRESENT TIME. WILL CONTINUE TO MONITOR FOR ANY CHGES. IN STATUS AND FOLLOE CURRENT PLAN OF CARE.
[2019-07-01 00:30] VITALS: BP 128/70
[2019-07-01 05:30] VITALS: BP 116/61
--- NOTE | 2019-07-01 07:24 | NUR ---
I have reviewed this patient and I concur with the Shift Assessment completed by the Licensed Practical Nurse today this shift.
--- NOTE | 2019-07-01 08:00 | NUR ---
PT RESTING IN BED WITH HOB ELEVATED. FAMILY AT BEDSIDE. RESP EVEN AND UNLABORED. PT DENIES PAIN AT THIS TIME. DENIES FURTHER NEEDS AT THIS TIME. CL WITHIN REACH. ENCOURAGED TO CALL WITH NEEDS. CONTINUE POC
[2019-07-01 09:38] VITALS: BP 129/77
[2019-07-01 10:46] LABS: BASOPHILS 0.2 % (0-2); EOSINOPHILS 0.9 % (0-7); HEMATOCRIT 29.2 % (36.0-48.0); HEMOGLOBIN 8.6 g/dL (12-16); IMMATURE GRANULOCYTES 2.5 % (0-5); LYMPHOCYTES 8.6 % (15-50); MCH 24.4 pg (26.0-34.0); MCHC 29.5 g/dL (31.0-37.0); MEAN PLATELET VOLUME 8.5 fL (7.4-10.4); MONOCYTES 10.2 % (2-11); NEUTROPHILS 77.6 % (40-80); PLATELET COUNT 566 10x3/uL (130-400); RBC 3.52 10x6/uL (4.00-5.40); RDW 17.8 % (11.5-14.5); WBC 10.9 10x3/uL (4.8-10.8)
[2019-07-01 11:03] LABS: ALBUMIN 1.6 g/dL (3.4-5.0); ALKALINE PHOSPHATASE 111 U/L (46-116); ALT (SGPT) 12 U/L (10-68); BILIRUBIN - TOTAL 0.44 mg/dL (0.2-1.3); CALC OSMOLALITY 279 mosm/kg (275-300); CALCIUM 8.1 mg/dL (8.5-10.1); CARBON DIOXIDE 30.8 mmol/L (21.0-32.0); CHLORIDE - SERUM 104 mmol/L (98-107); CREATININE - SERUM 0.5 mg/dL (0.6-1.3); GLUCOSE 98 mg/dL (74-106); MAGNESIUM - SERUM 2.2 mg/dL (1.8-2.4); PHOSPHOROUS 3.5 mg/dL (2.5-4.9); POTASSIUM - SERUM 3.8 mmol/L (3.5-5.1); SODIUM 142 mmol/L (136-145); UREA NITROGEN 5 mg/dL (7-18); eGFR NON AFRICAN AMERICAN > 90 mL/min (90-120)
[2019-07-01 13:19] VITALS: BP 131/78
[2019-07-01 17:15] VITALS: BP 134/78
--- NOTE | 2019-07-01 19:51 | NUR ---
rec'd. chge of shift walking rounds in bed watching tv. mother at bedside. denies any discomfort at present time.reinforced npo at midnite.for paracentesis in am voices understanding
[2019-07-01 20:00] VITALS: BP 110/74
[2019-07-02] VITALS (13 sets, daily range): BP systolic 100–118; BP diastolic 56–73
--- NOTE | 2019-07-02 01:33 | NUR ---
I have reviewed this patient and I concur with the Shift Assessment completed by the Licensed Practical Nurse today this shift.
[2019-07-02 05:13] LABS: INR 1.3 (0.85-1.17); PROTIME 16.1 SECONDS (11.6-15.0)
[2019-07-02 05:14] LABS: APTT 48.1 SECONDS (22.8-39.4)
[2019-07-02 05:21] LABS: HEMOGLOBIN 8.5 g/dL (12-16); MCHC 29.3 g/dL (31.0-37.0); MCV 81.9 fL (80.0-100.0); MEAN PLATELET VOLUME 8.8 fL (7.4-10.4); PLATELET COUNT 585 10x3/uL (130-400); RBC 3.54 10x6/uL (4.00-5.40); RDW 17.7 % (11.5-14.5); WBC 10.1 10x3/uL (4.8-10.8)
[2019-07-02 05:24] LABS: ALBUMIN 1.6 g/dL (3.4-5.0); ALKALINE PHOSPHATASE 116 U/L (46-116); ALT (SGPT) 12 U/L (10-68); BILIRUBIN - TOTAL 0.52 mg/dL (0.2-1.3); CALCIUM 8.2 mg/dL (8.5-10.1); CARBON DIOXIDE 30.1 mmol/L (21.0-32.0); CHLORIDE - SERUM 102 mmol/L (98-107); CREATININE - SERUM 0.6 mg/dL (0.6-1.3); GLUCOSE 105 mg/dL (74-106); PROTEIN - SERUM 7.1 g/dL (6.4-8.2); SODIUM 142 mmol/L (136-145); eGFR NON AFRICAN AMERICAN > 90 mL/min (90-120)
[2019-07-02 05:30] LABS: CALC OSMOLALITY 280 mosm/kg (275-300); POTASSIUM - SERUM 3.2 mmol/L (3.5-5.1); UREA NITROGEN 7 mg/dL (7-18)
--- NOTE | 2019-07-02 08:15 | NUR ---
PT RESTING IN BED WITH HOB ELEVATED. RESP EVEN AND UNLABORED. PT DENIES PAIN AT THIS TIME. VOICES SOME NAUSEA, BUT WITHOUT VOMITING AT THIS TIME. DENIES FURTHER NEEDS AT THIS TIME. CL WITHIN REACH. ENCOURAGED TO CALL WITH NEEDS. CONTINUE POC
[2019-07-02 09:53] LABS: LYMPHOCYTES 12 % (15-50); MONOCYTES 11 % (2-11); NEUTROPHILS 76 % (40-80); PLATELET ESTIMATE INCREASED; ROULEAUX OCC
[2019-07-02 10:37] LABS: PROTEIN - BODY FLUID 5.3 G/DL
[2019-07-02 12:41] LABS: MACROPHAGES BF 18 %; MESOTHELIALS BF 31 %; NEUT - BF 18 %
--- NOTE | 2019-07-02 13:25 | EC ---
PATIENT:SCOTTIE CURRIE DATE OF SERVICE: 06/19/19 SEX: F MEDICAL RECORD: [id number] DATE OF : 76 LOCATION:[facility] AGE OF PATIENT: 39 ADMISSION DATE: 06/19/19 REFERRING PHYSICIAN: INTERPRETING PHYSICIAN: ALDEN MARTEL MD ECHOCARDIOGRAM REPORT ECHO CHARGES 4 ECHO COMPLETE Date: 06/30/19 CLINICAL DIAGNOSIS: MURMUR - EVALUATE LVF ECHOCARDIOGRAPHIC MEASUREMENTS (adult normal given) AC root (d.<3.7cm) 2.7 cm LV Septum d (<1.2 cm> 1.3 cm Valve Excursion 1.8 cm LV Septum (systole) 1.7 cm Left Atria (s.<4.0cm> 2.9 cm LVPW d(<1.2cm) 1.0 cm RV (d.<2.3cm) 2.2 cm LVPW (sytole) 1.7 cm LV diastole(<5.6CM) 4.1 cm MV E-F(>70mm/sec) cm LV systole 1.9 cm LVOT Diameter 1.6 cm MV exc.(>10mm) cm Est.ejection fraction (50-75%) % DOPPLER: LVIT cm/sec A 95.0 cm/sec E 113 cm/sec LA cm/sec RVSP 24.4 mmHg LVOT 71.0 cm/sec AOP1/2T m/s Asc. Ao 134 cm/sec RVOT 82.0 cm/sec RA cm/sec PA 151 cm/sec AV Gradient Peak 7.2 mmHg AV Mean 3.9 mmHg AV Area 0.9 cm MV Gradient Peak 8.9 mmHg MV Mean 4.1 mmHg MV Area cm COMMENTS: [employer]one Software Development Engineer: Beatriz RODRIGUEZOE Health And Wellness Director: 3 Dr. Webster TAPE# PACS Pericardial Effusion N DATE OF SERVICE: Adequate 2D echo, color flow, spectral Doppler, and M-mode. Borderline LVH. LV internal dimension is normal. Wall motion is normal. EF is greater than or equal 50% to 55%. Aortic valve is tricuspid. No evidence of stenosis by Doppler interrogation. Left atrium is normal. Mitral valve shows no prolapse. Trivial MR. Right-sided chambers grossly normal. Trivial TR. ECHOCARDIOGRAM REPORT [id number] SCOTTIE CURRIE TRANSINT:[id number] Voice Confirmation ID: [id number] DOCUMENT ID: [id number] ALDEN MARTEL MD at 1325 CC: [id number] DICTATION DATE: 06/30/19 141 FINANCIAL SALES ASSOCIATE: 06/30/192057 ADM IN [place] [id number] [place] [id number]
[2019-07-03] VITALS: BP 118/67
[2019-07-03 04:00] VITALS: BP 108/68
--- NOTE | 2019-07-03 04:40 | NUR ---
I have reviewed this patient and I concur with the Shift Assessment completed by the Licensed Practical Nurse today this shift.
[2019-07-03 07:09] LABS: BASOPHILS 0.2 % (0-2); EOSINOPHILS 0.8 % (0-7); HEMATOCRIT 30.3 % (36.0-48.0); HEMOGLOBIN 8.8 g/dL (12-16); IMMATURE GRANULOCYTES 1.5 % (0-5); LYMPHOCYTES 7.9 % (15-50); MCH 24.2 pg (26.0-34.0); MCV 83.5 fL (80.0-100.0); MEAN PLATELET VOLUME 8.7 fL (7.4-10.4); MONOCYTES 11.5 % (2-11); NEUTROPHILS 78.1 % (40-80); PLATELET COUNT 571 10x3/uL (130-400); RBC 3.63 10x6/uL (4.00-5.40); RDW 17.9 % (11.5-14.5); WBC 9.7 10x3/uL (4.8-10.8)
[2019-07-03 07:42] LABS: ALBUMIN 1.5 g/dL (3.4-5.0); ALKALINE PHOSPHATASE 121 U/L (46-116); ALT (SGPT) 14 U/L (10-68); BILIRUBIN - TOTAL 0.44 mg/dL (0.2-1.3); CALC OSMOLALITY 278 mosm/kg (275-300); CALCIUM 8.7 mg/dL (8.5-10.1); CARBON DIOXIDE 33.2 mmol/L (21.0-32.0); CHLORIDE - SERUM 102 mmol/L (98-107); GLUCOSE 102 mg/dL (74-106); PROTEIN - SERUM 7.9 g/dL (6.4-8.2); SODIUM 141 mmol/L (136-145); THYROID STIMULATING HORMONE 2.09 uIU/mL (0.36-3.74); UREA NITROGEN 8 mg/dL (7-18)
[2019-07-03 07:44] LABS: CREATININE - SERUM 0.4 mg/dL (0.6-1.3); eGFR NON AFRICAN AMERICAN > 90 mL/min (90-120)
--- NOTE | 2019-07-03 09:00 | NUR ---
ALERT WITH PATIENT DEVELOPMENTALLY DELAYED BEHAVIOR BUT PLEASANT AND COOPERATIVE. LIMITED ROM TO RUE AND REQUIRES ASSIST WITH MEALS OV TO LEFT WRIST WITH IVF INFUSING AT PRESCRIBED RATE. MOTHER WITH PATINET AT THIS TIME. HRRR AND LUNGS CTA. ENCOURAGED TO USE CALLL LIGHT FOR ASSIT.
[2019-07-03 10:22] VITALS: BP 120/75
--- NOTE | 2019-07-03 10:25 | NUR ---
NUTRITION F/U PT WITH EMESIS AFTER SMALL AMT BREAKFAST. SPOKE WITH MOTHER AND PT, NOW AGREEABLE TO ENSURE WITH MEALS(WILL SUBSTITUTE GLUCERNA SHAKE). PT MAY ALSO BENEFIT FROM PROCALAMINE TO IMPROVE PROTEIN STATUS. RD FOLLOWING
[2019-07-03 13:59] VITALS: BP 125/72
[2019-07-03 17:52] VITALS: BP 127/65
--- NOTE | 2019-07-03 19:26 | NUR ---
IN BED WITH FAMILY AT BEDSIDE. PLEASANT MOOD AND AFFECT. ABLE TO MAKE NEEDS KNOWN, UNDERSTANDS MESSAGES. DENIES ANY PAIN OR DISTRESS AT THIS TIME. IV PATENT TO LEFT INNER WRIST. WILL NOTE ANY CHANGE.
[2019-07-03 20:00] VITALS: BP 135/76
[2019-07-04 04:00] VITALS: BP 110/71
--- NOTE | 2019-07-04 04:37 | NUR ---
RESTED WELL THIS SHIFT. NO COMPLAINTS OF PAIN OR ACUTE DISTRESS NOTED. MOTHER REMAINS AT BEDSIDE. WILL NOTE ANY CHANGE.
--- NOTE | 2019-07-04 05:13 | NUR ---
I have reviewed this patient and I concur with the Shift Assessment completed by the Licensed Practical Nurse today this shift.
[2019-07-04 06:53] LABS: BASOPHILS 0.2 % (0-2); EOSINOPHILS 1.1 % (0-7); HEMATOCRIT 32.1 % (36.0-48.0); HEMOGLOBIN 9.4 g/dL (12-16); IMMATURE GRANULOCYTES 1.5 % (0-5); LYMPHOCYTES 9.7 % (15-50); MCH 24.3 pg (26.0-34.0); MCHC 29.3 g/dL (31.0-37.0); MCV 82.9 fL (80.0-100.0); MEAN PLATELET VOLUME 8.7 fL (7.4-10.4); MONOCYTES 10.3 % (2-11); NEUTROPHILS 77.2 % (40-80); PLATELET COUNT 555 10x3/uL (130-400); RBC 3.87 10x6/uL (4.00-5.40); RDW 17.9 % (11.5-14.5); WBC 9.2 10x3/uL (4.8-10.8)
[2019-07-04 07:12] LABS: ALBUMIN 1.5 g/dL (3.4-5.0); ALKALINE PHOSPHATASE 118 U/L (46-116); ALT (SGPT) 17 U/L (10-68); BILIRUBIN - TOTAL 0.32 mg/dL (0.2-1.3); CALC OSMOLALITY 276 mosm/kg (275-300); CALCIUM 8.6 mg/dL (8.5-10.1); CHLORIDE - SERUM 99 mmol/L (98-107); CREATININE - SERUM 0.5 mg/dL (0.6-1.3); GLUCOSE 130 mg/dL (74-106); POTASSIUM - SERUM 3.4 mmol/L (3.5-5.1); PROTEIN - SERUM 8.1 g/dL (6.4-8.2); SODIUM 138 mmol/L (136-145); UREA NITROGEN 9 mg/dL (7-18); eGFR NON AFRICAN AMERICAN > 90 mL/min (90-120)
--- NOTE | 2019-07-04 09:00 | NUR ---
ALERT AND ORIENTED TO SELF AND FAMILIAR FACES. IV TO LEFT WRIST WITH IVF INFUSING AT PRESCRIBED RATE WITH NO S/S OF INFECTION/INFILTRATION. MOTHER ASISST WITH FEEDING WITH DECISION MADE TO POSTPONE FEEDING TUBE TILL SATURDAY.PT RECIVED BATH WITH ASSSIT.ENCOURAGED TO USE CALL LIGHT FOR ASSSIT.
[2019-07-04 09:40] VITALS: BP 112/61
[2019-07-04 13:46] VITALS: BP 121/81
[2019-07-04 17:43] VITALS: BP 111/70
[2019-07-04 20:00] VITALS: BP 101/64
--- NOTE | 2019-07-04 20:30 | NUR ---
LYING QUEITLY WITH NO COMPLAITNS VOICED. RESP EVEN AND UNALBORED. NO DISTRESS NOTED. IV RESITE ATTEMPTED X 3 WITH NO SUCCESS. CL IN REACH. MOM AT BEDSIDE
[2019-07-05 07:14] LABS: ALBUMIN 1.7 g/dL (3.4-5.0); ALKALINE PHOSPHATASE 130 U/L (46-116); CALC OSMOLALITY 280 mosm/kg (275-300); CALCIUM 8.8 mg/dL (8.5-10.1); CHLORIDE - SERUM 103 mmol/L (98-107); CREATININE - SERUM 0.6 mg/dL (0.6-1.3); GLUCOSE 125 mg/dL (74-106); POTASSIUM - SERUM 3.9 mmol/L (3.5-5.1); PROTEIN - SERUM 8.3 g/dL (6.4-8.2); SODIUM 141 mmol/L (136-145); UREA NITROGEN 9 mg/dL (7-18); eGFR NON AFRICAN AMERICAN > 90 mL/min (90-120)
[2019-07-05 07:15] LABS: ALT (SGPT) 24 U/L (10-68)
[2019-07-05 07:33] LABS: BASOPHILS 0.3 % (0-2); EOSINOPHILS 1.8 % (0-7); HEMATOCRIT 31.9 % (36.0-48.0); HEMOGLOBIN 9.3 g/dL (12-16); IMMATURE GRANULOCYTES 1.4 % (0-5); LYMPHOCYTES 10.2 % (15-50); MCH 24.2 pg (26.0-34.0); MCHC 29.2 g/dL (31.0-37.0); MCV 83.1 fL (80.0-100.0); MEAN PLATELET VOLUME 8.9 fL (7.4-10.4); MONOCYTES 10.6 % (2-11); NEUTROPHILS 75.7 % (40-80); PLATELET COUNT 605 10x3/uL (130-400); RBC 3.84 10x6/uL (4.00-5.40); RDW 17.6 % (11.5-14.5); WBC 7.6 10x3/uL (4.8-10.8)
--- NOTE | 2019-07-05 09:00 | NUR ---
ALERT AND ORIETNED TO SELF AND FAMILIAR FACED DUE TO DEVELPMENTAL DELAY. PT TAKES MEDS WHOLE WITH ASSSIT OF MOTHER. REMAINS UNABLE TO RESTART IV AT THIS TIME. DENIES ANY PAIN OR DISCOMFORT AT THIS TIME ABDOMEN WITH ABDOMEN SOFT WITH BOWEL SOUNDS NOTED. HRRR AND NO PERIPHERAL EDEMA NOTED. SBA TO BATHROOM. ENCOURAGED TO USE CALL LIGHT FORASSSIT.
[2019-07-05 09:21] VITALS: BP 116/70
[2019-07-05 12:25] VITALS: BP 107/63
[2019-07-05 16:42] VITALS: BP 119/72
--- NOTE | 2019-07-05 17:06 | NUR ---
DR. GRACE NOTIFIED OF INABILITY TO GET IV ACCESS WITH NOEW ORDER NOTED.
[2019-07-05 20:48] VITALS: BP 102/63
[2019-07-06 00:15] VITALS: BP 100/67
--- NOTE | 2019-07-06 03:49 | NUR ---
I have reviewed this patient and I concur with the Shift Assessment completed by the Licensed Practical Nurse today this shift.
[2019-07-06 04:43] VITALS: BP 109/56
--- NOTE | 2019-07-06 07:13 | NUR ---
ALERT BUT LOOKS AT MOM TO ANSWER QUESTIONS. LUNGS CLEAR BILATERALLY. HEART SOUNDS S1 AND S2 HEARD IN ALL SARAVIA. BOWEL SOUNDS ACTIVE X 4. SKIN INTACT WITHOUT REDNESS. NO IV. VASCULAR ACCESS TO COME PLACE MIDLINE TODAY. DENIES NEEDS. BED LOW. CALL MENDOZA AND PERSONAL ITEMS IN REACH. WILL CONTINUE TO MONITOR.
[2019-07-06 08:16] VITALS: BP 105/70
[2019-07-06 09:47] LABS: BASOPHILS 0.3 % (0-2); EOSINOPHILS 0.9 % (0-7); HEMATOCRIT 33.7 % (36.0-48.0); HEMOGLOBIN 9.9 g/dL (12-16); IMMATURE GRANULOCYTES 1.1 % (0-5); MCHC 29.4 g/dL (31.0-37.0); MEAN PLATELET VOLUME 8.7 fL (7.4-10.4); NEUTROPHILS 76.7 % (40-80); RBC 3.96 10x6/uL (4.00-5.40); RDW 18.4 % (11.5-14.5)
[2019-07-06 09:49] LABS: MCV 85.1 fL (80.0-100.0); PLATELET COUNT 746 10x3/uL (130-400); WBC 10.6 10x3/uL (4.8-10.8)
[2019-07-06 10:16] LABS: ALKALINE PHOSPHATASE 150 U/L (46-116); ALT (SGPT) 30 U/L (10-68); BILIRUBIN - TOTAL 0.36 mg/dL (0.2-1.3); CARBON DIOXIDE 32.8 mmol/L (21.0-32.0); CHLORIDE - SERUM 101 mmol/L (98-107); PROTEIN - SERUM 8.6 g/dL (6.4-8.2); SODIUM 141 mmol/L (136-145)
[2019-07-06 10:17] LABS: CALC OSMOLALITY 284 mosm/kg (275-300); CREATININE - SERUM 0.8 mg/dL (0.6-1.3); GLUCOSE 178 mg/dL (74-106); POTASSIUM - SERUM 4.5 mmol/L (3.5-5.1); UREA NITROGEN 12 mg/dL (7-18); eGFR NON AFRICAN AMERICAN 84 mL/min (90-120)
--- NOTE | 2019-07-06 12:52 | NUR ---
Nutrition follow-up: NPO; G/J tube placement scheduled for 07/07 ProcalAmine PPN @ 75 ml/hr Labs reviewed wt: 147# Recommend Osmolite 1.0 christine @ 20 ml/hr with gradual increase to goal rate of 65 ml/hr to meet 100% of estimated energy needs. Flush with 15 ml q hour RDN following.
--- NOTE | 2019-07-06 12:54 | NUR ---
CONSENTS SIGNED FOR PEG PLACEMENT TOMORROW. SIGNED BY MOM AT BEDSIDE PER PATIENT'S REQUEST AND WITNESSED BY SECOND NURSE.
--- NOTE | 2019-07-06 13:18 | NUR ---
RESTING IN BED. MOM AT BEDSIDE. DENIES NEEDS. WILL CONTINUE TO MONITOR.
[2019-07-06 16:14] VITALS: BP 126/77
--- NOTE | 2019-07-06 18:13 | NUR ---
RESTING IN BED. MOM AT BEDSIDE. DENIES NEEDS. CALL MENDOZA AND PERSONAL ITEMS IN REACH.
--- NOTE | 2019-07-06 19:30 | NUR ---
PT IS RESTING IN BED WITH EYES OPEN. ALERT AND ORIENTED X 3. PT DID NOT SPEAK TO ME MUCH, BUT WOULD SMILE AND NOD YES OR NO TO QUESTIONS. HER MOTHER IS AT THE BEDSIDE AND ANSWERED MOST QUESTIONS. IV INFUSING TO RIGHT ARM MIDLINE WITHOUT DIFFICULTY. NO REDNESS OR EDEMA NOTED AT THE INSERTION SITE. SR'S ARE UP X 2 IN BED. CALL LIGHT AND BEDSIDE TABLE ARE WITHIN EASY REACH.
[2019-07-06 21:03] VITALS: BP 114/72
--- NOTE | 2019-07-06 21:26 | NUR ---
PT IS RESTING IN BED WATCHING TV. NO ACUTE DISTRESS NOTED. NO NEEDS VOICED.
--- NOTE | 2019-07-06 23:27 | NUR ---
PT RESTING IN BED WITH EYES CLOSED. NO ACUTE DISTRESS NOTED. FAMILY MEMBER SLEEPING IN RECLINER.
[2019-07-07] VITALS (11 sets, daily range): BP systolic 95–123; BP diastolic 60–76
--- NOTE | 2019-07-07 02:30 | NUR ---
PT RESTING IN BED WITH EYES CLOSED. NO DISTRESS NOTED.
--- NOTE | 2019-07-07 05:14 | NUR ---
PT RESTING IN BED WITH EYES CLOSED.
[2019-07-07 07:18] LABS: ALBUMIN 1.8 g/dL (3.4-5.0); ALKALINE PHOSPHATASE 132 U/L (46-116); ALT (SGPT) 28 U/L (10-68); BASOPHILS 0.6 % (0-2); BILIRUBIN - TOTAL 0.32 mg/dL (0.2-1.3); CALC OSMOLALITY 274 mosm/kg (275-300); CALCIUM 8.7 mg/dL (8.5-10.1); CARBON DIOXIDE 29.3 mmol/L (21.0-32.0); CHLORIDE - SERUM 99 mmol/L (98-107); CREATININE - SERUM 0.8 mg/dL (0.6-1.3); EOSINOPHILS 1.3 % (0-7); GLUCOSE 126 mg/dL (74-106); HEMOGLOBIN 9.2 g/dL (12-16); IMMATURE GRANULOCYTES 1.4 % (0-5); LYMPHOCYTES 13.7 % (15-50); MCH 24.2 pg (26.0-34.0); MCHC 28.8 g/dL (31.0-37.0); MCV 84.2 fL (80.0-100.0); MEAN PLATELET VOLUME 8.7 fL (7.4-10.4); POTASSIUM - SERUM 4.1 mmol/L (3.5-5.1); PROTEIN - SERUM 8.7 g/dL (6.4-8.2); SODIUM 136 mmol/L (136-145); UREA NITROGEN 14 mg/dL (7-18); WBC 8.8 10x3/uL (4.8-10.8); eGFR NON AFRICAN AMERICAN 84 mL/min (90-120)
[2019-07-07 07:23] LABS: PLATELET COUNT 557 10x3/uL (130-400)
[2019-07-07 07:35] LABS: APTT 43.7 SECONDS (22.8-39.4); INR 1.21 (0.85-1.17); PROTIME 15.2 SECONDS (11.6-15.0)
--- NOTE | 2019-07-07 07:47 | NUR ---
ALERT AND ORIENTED. SLOW TO RESPOND. MOM AT BEDSIDE. LUNGS CLEAR BILATERALLY. HEART SOUNDS S1 AND S2 HEARD IN ALL SARAVIA. BOWEL SOUNDS HYPOACTIVE X 4. SKIN INTACT WITHOUT REDNESS. PAUL MIDLINE PATENT WITHOUT REDNESS. DENIES NEEDS. BED LOW. CALL MENDOZA AND PERSONAL ITEMS IN REACH. WILL CONTINUE TO MONITOR..
--- NOTE | 2019-07-07 13:00 | NUR ---
PATIENT RETURNED FROM GJ TUBE PLACEMENT. VITALS STABLE. PRN PAIN MEDICATION AND NAUSEA MEDICATION GIVEN PER REQUEST. EDUCATION PROVIDED ON BED REST X 4HRS AND CONTINUOUS VITAL SIGN MONITORING. PATIENT AND MOM AT BEDSIDE VERBALIZED UNDERSTANDING. CALL MENDOZA AND PERSONAL ITEMS IN REACH. WILL CONTINUE TO MONITOR.
--- NOTE | 2019-07-07 13:45 | NUR ---
RESTING IN BED. MOM AT BEDSIDE. POST OP VITALS REMAIN STABLE. WILL CONTINUE TO MONITOR.
--- NOTE | 2019-07-07 21:05 | NUR ---
LYING IN BED. MOTHER AT BEDSIDE. PT IS MENTALLY CHALLENGED. UNABLE TO RESPOND APPROPRIATELY TO QUESTIONS. DENIES PAIN AT THIS TIME. GJ TUBE NOTED TO ABD TO BILI BAG DRAINING THICK LIGHT GREEN DRAINAGE. C/O SORE THROAT. ABD DISTENDED. BS HYPOACTIVE. PROCAL INFUSING @ 75 MLHR IN RT UPPER ARM MIDLINE. AMB WITH ASSIST PER MOTHER. NO DISTRESS. HOB ELEVATED. SR ELEVATED X2. CL IN REACH.
--- NOTE | 2019-07-08 00:30 | NUR ---
MEDICATED WITH MORPHINE FOR C/O ABD PAIN. MOTHER AT BEDSIDE. CL IN REACH.
[2019-07-08 00:34] VITALS: BP 118/70
--- NOTE | 2019-07-08 02:54 | NUR ---
HAS RESTED WELL TONIGHT. LYING IN BED. DENIES PAIN. CL IN REACH.
[2019-07-08 04:00] VITALS: BP 116/70
--- NOTE | 2019-07-08 06:24 | NUR ---
GIVEN PO MEDS AT THIS TIME AND PT IMMEDIATELY VOMITED APPROX 100 ML OF YELLOW EMESIS. HOB ELEVATED.
[2019-07-08 06:55] LABS: BASOPHILS 0.2 % (0-2); HEMATOCRIT 30.8 % (36.0-48.0); HEMOGLOBIN 9.1 g/dL (12-16); IMMATURE GRANULOCYTES 0.9 % (0-5); LYMPHOCYTES 9.2 % (15-50); MCH 24.7 pg (26.0-34.0); MCHC 29.5 g/dL (31.0-37.0); MCV 83.7 fL (80.0-100.0); MEAN PLATELET VOLUME 8.6 fL (7.4-10.4); MONOCYTES 7.3 % (2-11); NEUTROPHILS 81.4 % (40-80); PLATELET COUNT 641 10x3/uL (130-400); RBC 3.68 10x6/uL (4.00-5.40); RDW 18.1 % (11.5-14.5); WBC 9.7 10x3/uL (4.8-10.8)
[2019-07-08 07:03] LABS: ALBUMIN 1.9 g/dL (3.4-5.0); ALKALINE PHOSPHATASE 217 U/L (46-116); ALT (SGPT) 41 U/L (10-68); BILIRUBIN - TOTAL 0.41 mg/dL (0.2-1.3); CALC OSMOLALITY 273 mosm/kg (275-300); CALCIUM 8.8 mg/dL (8.5-10.1); CARBON DIOXIDE 29.4 mmol/L (21.0-32.0); CHLORIDE - SERUM 100 mmol/L (98-107); CREATININE - SERUM 0.6 mg/dL (0.6-1.3); GLUCOSE 140 mg/dL (74-106); POTASSIUM - SERUM 4.6 mmol/L (3.5-5.1); PROTEIN - SERUM 8.1 g/dL (6.4-8.2); SODIUM 136 mmol/L (136-145); UREA NITROGEN 12 mg/dL (7-18); eGFR NON AFRICAN AMERICAN > 90 mL/min (90-120)
--- NOTE | 2019-07-08 08:08 | NUR ---
IR HERE TO SEE PT, WILL FLUSH TUBE NOW AND AGAIN AT 10AM, FOLLOW UP WITH DIETARY IF TOLERATED
[2019-07-08 08:48] VITALS: BP 118/75
--- NOTE | 2019-07-08 09:11 | NUR ---
RESTING IN BED, MOTHER IN ROOM, WILL BE EATING MEALS AND WILL BE LOOKING FOR TUBE FEEDING TO START TODAY
[2019-07-08 12:48] VITALS: BP 118/67
--- NOTE | 2019-07-08 13:12 | NUR ---
Nutrition follow-up: Recieved order to begin TF via J-tube at noon today Spoke with nurse, Herberth logan, pts mother re: tube feeding Pt tolerated fluid this morning Order placed to start Osmolite 1.0 christine @ 20 ml/hr with gradual increase to goal rate of 60 ml/hr with 25 ml H2O flush Q hour at noon today. Do not check residuals with a J-tube. RDN monitoring pts progress and tF tolerance. RDN following.
--- NOTE | 2019-07-08 14:53 | NUR ---
FEEDING OF OSMOLYTE STARTED AT 20, CONT TO MONITOR FOR NAUSEA AND PAIN
[2019-07-08 16:40] VITALS: BP 125/77
--- NOTE | 2019-07-08 18:36 | NUR ---
TOLERATING TUBE FEEDING, CONT TO MONITOR INTAKE AND PAIN
[2019-07-08 20:00] VITALS: BP 128/73
--- NOTE | 2019-07-08 20:00 | NUR ---
ALERT RESTING IN BED, MOM AT BEDSIDE, TOLERATING PEG TUBE FEEDING WELL AT THIS TIME, SEE SHIFT ASSESSEMENT, CALL LIGHT IN REACH
[2019-07-09 06:48] LABS: HEMATOCRIT 31.5 % (36.0-48.0); HEMOGLOBIN 9.2 g/dL (12-16); MCH 24.3 pg (26.0-34.0); MCHC 29.2 g/dL (31.0-37.0); MCV 83.1 fL (80.0-100.0); MEAN PLATELET VOLUME 8.6 fL (7.4-10.4); PLATELET COUNT 514 10x3/uL (130-400); RBC 3.79 10x6/uL (4.00-5.40); RDW 18.2 % (11.5-14.5); WBC 9.6 10x3/uL (4.8-10.8)
[2019-07-09 06:58] LABS: ALBUMIN 1.8 g/dL (3.4-5.0); ALKALINE PHOSPHATASE 169 U/L (46-116); ALT (SGPT) 26 U/L (10-68); BILIRUBIN - TOTAL 0.28 mg/dL (0.2-1.3); CALC OSMOLALITY 271 mosm/kg (275-300); CALCIUM 9.1 mg/dL (8.5-10.1); CARBON DIOXIDE 29.8 mmol/L (21.0-32.0); CHLORIDE - SERUM 97 mmol/L (98-107); CREATININE - SERUM 0.5 mg/dL (0.6-1.3); GLUCOSE 167 mg/dL (74-106); POTASSIUM - SERUM 4.4 mmol/L (3.5-5.1); PROTEIN - SERUM 8.4 g/dL (6.4-8.2); SODIUM 134 mmol/L (136-145); UREA NITROGEN 13 mg/dL (7-18); eGFR NON AFRICAN AMERICAN > 90 mL/min (90-120)
[2019-07-09 07:24] LABS: BASOPHILS 1 % (0-2); EOSINOPHILS 9 % (0-7); LYMPHOCYTES 4 % (15-50); MONOCYTES 7 % (2-11); NEUTROPHILS 79 % (40-80); PLATELET ESTIMATE NORMAL
[2019-07-09 07:25] LABS: ANISOCYTOSIS 1+; HYPOCHROMASIA 2+
--- NOTE | 2019-07-09 08:00 | NUR ---
PT RESTING QUIETLY IN BED WITH FAMILY AT BEDSIDE. RESP EVEN AND UNLABORED. DENIES PAIN AT THIS TIME. PICC LINE INTACT TO RIGHT UPPER ARM WITH PROCALAMINE @ 75ML/HR INFUSING VIA PUMP. SITE WITHOUT REDNESS OR EDEMA. PEG INTACT WITH OSMOLITE 1.0 @ 40ML/HR INFUSING VIA PUMP. PT CASEY FEEDINGS WELL. DENIES FURTHER NEEDS AT THIS TIME. CL WITHIN REACH. ENCOURAGED TO CALL WITH NEEDS. CONTINUE POC
[2019-07-09 08:49] VITALS: BP 136/75
--- NOTE | 2019-07-09 09:47 | NUR ---
NUTRTIION F/U PT TOLERATING SMALL AMT BREAKFAST THIS AM. OSMOLITE 1.0 SHANE @ 40 CC/HR PER J TUBE WITH 25 CC H2O FLUSH Q HOUR. CURRENT GOAL RATE 60 CC/HR. WHEN PT DC'S TO [facility], RECOMMEND CHANGING TUBE FEED TO NOCTURNAL AT 75 CC/HR. RUN OVER 10 HOURS FROM 8PM TO 6 AM. 25 CC H2O FLUSH Q HOUR. MONITOR WT AND ADJUST TUBE FEEDS NEEDED. RD FOLLOWING
--- NOTE | 2019-07-09 10:00 | NUR ---
PT RESTING IN BED WATCHING TV. FAMILY REMAINS AT BEDSIDE. DENIES PAIN OR FURTHER NEEDS. CL WITHIN REACH. ENCOURAGED TO CALL WITH NEEDS.
--- NOTE | 2019-07-09 11:30 | NUR ---
PT TUBE FEEDING INCREASED TO 50ML/HR AT THIS TIME. DENIES FURTHER NEEDS AT THIS TIME. CL WITHIN REACH. ENCOURAGED TO CALL WITH NEEDS.
[2019-07-09 12:45] VITALS: BP 114/71
--- NOTE | 2019-07-09 14:00 | NUR ---
PT SITTING UP IN CHAIR AT BEDSIDE. NO ACUTE DISTRESS NOTED AT THIS TIME. DENIES PAIN OR FURTHER NEEDS AT THIS TIME. CL WITHIN REACH.
--- NOTE | 2019-07-09 15:19 | MORECARE ---
CASE MANAGEMENT DISCHARGE SUMMARY PATIENT: SCOTTIE CURRIE UNIT: [id number] ADM DATE: 06/19/19 AGE: 39 : 78 SEX: F ROOM/BED: D.2202 AUTHOR: VERITO,DOC PHYSICIAN: REFERRING PHYSICIAN: JADON SMITH MD DATE OF SERVICE: 07/09/19 Discharge Plan Patient Name: SCOTTIE CURRIE Facility: [facility]:[place] : 1980 Planned Disposition: Home or Self Care Anticipated Discharge Date: Discharge Date: Expected LOS: Initial Reviewer: [email or web address] Initial Review Date: 06/19/2019 Generated: 07/09/19 4:19 pm DCP- Discharge Planning Updated by [email or web address]: Donna Bledsoe on 06/22/19 1:[address] Patient Name: SCOTTIE CURRIE Admission Status: ER Accout number: [id number] Admission Date: 06-19-2019 : 1980 Admission Diagnosis: Attending: JADON SMITH Current LOS: 3 Anticipated DC Date: Planned Disposition: Home or Self Care Primary Insurance: MEDICAID [place] Discharge Planning Comments: CM met with patient to complete initial dc planning assessment. CM educated patient on the CM role and verbal consent given by patient to complete assessment. Patient lives at home with her mother where she is partially independent with her care at home. Her mother helps her with her medications at home. At discharge patient plans to return home and feels this is a safe discharge. CM discussed availability of home health, rehab services, and medical equipment. Patient has a walker at home, that she uses sometimes. Patient denied known discharge needs at this time. Patient did not want home health at this time. CM will continue to follow and will assist as needed with dc plans/needs. Reporting Manager: Donna Bledsoe DCPIA - Discharge Planning Initial Assessment Updated by [email or web address]: Donna Bledsoe on 06/22/19 2:48 pm * Is the patient Alert and Oriented? Yes * How many steps to enter\exit or inside your home? * PCP [facility] * [facility] * Preadmission Environment Home with Family * ADLs Partial Dependent * Partial ADLs (Assistance needed) Medication Management * Equipment Rolling Walker * List name and contact numbers for known caregivers / representatives who currently or will assist patient after discharge: KIA GARDNER [phone] MOTHER * Verbal permission to speak to the caregivers and representatives has been obtained from the patient. N/A * Community resources currently utilized None * Additional services required to return to the preadmission environment? No * Can the patient safely return to the preadmission environment? Yes * Has this patient been hospitalized within the prior 30 days at any hospital? No External Providers External Provider: [facility] Next Contact Date: Service Request Date: Service Type: Resolution: Reviewer: Comments: Last DP export: 06/22/19 1:55 pm Patient Name: SCOTTIE CURRIE Page [phone] at 1519 All edits/amendments must be made on the electronic document DICTATION DATE: 07/09/191517 ROLL FILLER: OVIDIO 07/09/191517 RPT#: [id number] DC DATE: STATUS: ADM IN [facility] [address] [place] [address] END OF REPORT
--- NOTE | 2019-07-09 17:30 | NUR ---
PEG FEEDINGS INCREASED TO 60ML/HR PER MD ORDERS
[2019-07-09 17:49] VITALS: BP 125/68
--- NOTE | 2019-07-09 20:00 | NUR ---
ALERT RESTING IN BED, DENIES PAIN OR NAUSEA AT THIS TIME, TUBE FEEDING INFUSING AT 60 WITHOUT DIFFICULTY, SEE SHIFT ASSESSMENT, CALL LIGHT IN REACH
[2019-07-09 20:59] VITALS: BP 116/70
[2019-07-10 00:41] VITALS: BP 120/77
[2019-07-10 04:34] VITALS: BP 112/70
[2019-07-10 06:01] LABS: BASOPHILS 0.3 % (0-2); EOSINOPHILS 1.5 % (0-7); HEMATOCRIT 29.8 % (36.0-48.0); HEMOGLOBIN 8.8 g/dL (12-16); LYMPHOCYTES 11.1 % (15-50); MCH 24.1 pg (26.0-34.0); MCHC 29.5 g/dL (31.0-37.0); MCV 81.6 fL (80.0-100.0); MEAN PLATELET VOLUME 8.7 fL (7.4-10.4); MONOCYTES 11.6 % (2-11); NEUTROPHILS 73.5 % (40-80); PLATELET COUNT 522 10x3/uL (130-400); RBC 3.65 10x6/uL (4.00-5.40); WBC 9.2 10x3/uL (4.8-10.8)
[2019-07-10 06:04] LABS: ALBUMIN 1.8 g/dL (3.4-5.0); ALKALINE PHOSPHATASE 192 U/L (46-116); ALT (SGPT) 27 U/L (10-68); BILIRUBIN - TOTAL 0.24 mg/dL (0.2-1.3); CALC OSMOLALITY 270 mosm/kg (275-300); CALCIUM 8.4 mg/dL (8.5-10.1); CARBON DIOXIDE 25.5 mmol/L (21.0-32.0); CHLORIDE - SERUM 98 mmol/L (98-107); CREATININE - SERUM 0.5 mg/dL (0.6-1.3); GLUCOSE 191 mg/dL (74-106); PROTEIN - SERUM 7.7 g/dL (6.4-8.2); SODIUM 133 mmol/L (136-145); UREA NITROGEN 12 mg/dL (7-18); eGFR NON AFRICAN AMERICAN > 90 mL/min (90-120)
[2019-07-10 06:10] LABS: POTASSIUM - SERUM 5.1 mmol/L (3.5-5.1)
--- NOTE | 2019-07-10 09:00 | NUR ---
ALERT AND ORIENTED TO SELF AND FAMILIAR FACES. MOTHER AT BEDSIDE ASSISTING WITH CARE. G-TUBE INTACT TO ABDOMEN WITH PLACEMENT NOTED WITH OSMOLITE INFUSING AT PREWCRIBED RATE WITH MEDS GIVEN PER TUBE. PT VOMITS WHEN GIVEN AHYTHING B MOUTH. RT. PICC LINE TO RUE AND S/L. ENCOURAGED TO USE CALL LIGHT FOR ASSIST. LUNGS CTA AND HRRR
[2019-07-10 09:16] VITALS: BP 111/73
--- NOTE | 2019-07-10 09:51 | NUR ---
NUTRITION F/U 1)AT DISCHARGE RECOMMEND TUBE FEEDS NUTREN 1.0 SHANE. 2)RUN 4 CARTONS OVER 12 HOURS DAILY (80 CC/HR). RD FOLLOWING
[2019-07-10] MEDS ORDERED: PROTONIX40 MG PO (10:57)
[2019-07-10] MEDS ORDERED: REGLAN5 MG PO (10:57)
[2019-07-10] MEDS ORDERED: MIRALAX17 GM PO (10:57)
--- NOTE | 2019-07-10 11:55 | MORECARE ---
CASE MANAGEMENT DISCHARGE SUMMARY PATIENT: SCOTTIE CURRIE UNIT: [id number] ADM DATE: 06/19/19 AGE: 39 : 78 SEX: F ROOM/BED: D.2202 AUTHOR: VERITODOC PHYSICIAN: REFERRING PHYSICIAN: JADON SMITH MD DATE OF SERVICE: 07/10/19 Discharge Plan Patient Name: SCOTTIE CURRIE Facility: [facility]:[place] : 1980 Planned Disposition: Home or Self Care Anticipated Discharge Date: Discharge Date: Expected LOS: Initial Reviewer: [email or web address] Initial Review Date: 06/19/2019 Generated: 07/10/19 12:55 pm DCP- Discharge Planning Updated by [email or web address]: Donna Bledsoe on 06/22/19 1:[address] Patient Name: SCOTTIE CURRIE Admission Status: ER Accout number: [id number] Admission Date: 06-19-2019 : 1980 Admission Diagnosis: Attending: JADON SMITH Current LOS: 3 Anticipated DC Date: Planned Disposition: Home or Self Care Primary Insurance: MEDICAID [place] Discharge Planning Comments: CM met with patient to complete initial dc planning assessment. CM educated patient on the CM role and verbal consent given by patient to complete assessment. Patient lives at home with her mother where she is partially independent with her care at home. Her mother helps her with her medications at home. At discharge patient plans to return home and feels this is a safe discharge. CM discussed availability of home health, rehab services, and medical equipment. Patient has a walker at home, that she uses sometimes. Patient denied known discharge needs at this time. Patient did not want home health at this time. CM will continue to follow and will assist as needed with dc plans/needs. Vehicle Care Specialist: Donna Bledsoe DCPIA - Discharge Planning Initial Assessment Updated by [email or web address]: Donna Bledsoe on 06/22/19 2:48 pm * Is the patient Alert and Oriented? Yes * How many steps to enter\exit or inside your home? * PCP [facility] * [facility] * Preadmission Environment Home with Family * ADLs Partial Dependent * Partial ADLs (Assistance needed) Medication Management * Equipment Rolling Walker * List name and contact numbers for known caregivers / representatives who currently or will assist patient after discharge: KIA GARDNER [phone] MOTHER * Verbal permission to speak to the caregivers and representatives has been obtained from the patient. N/A * Community resources currently utilized None * Additional services required to return to the preadmission environment? No * Can the patient safely return to the preadmission environment? Yes * Has this patient been hospitalized within the prior 30 days at any hospital? No External Providers External Provider: [facility] Next Contact Date: Service Request Date: Service Type: Resolution: Reviewer: Comments: Coverage Notice Reviewer: [email or web address] Adolph Bledsoe Notice Issued Date-Time: 07/09/2019 11:40 Notice Type: Patient Choice Letter Notice Delivered To: Family Member Relationship to Patient: Mother Diesel Fitter Mechanic Name: kia Delivery Method: HAND - Hand Delivered Leonila Days: Prior Verbal Notification: Recipient Understood Notice: Yes Recipient Signature: Yes Med Rec Note Co-signed by Attending: Coverage Notice Comment: lexii [facility] [place] Last DP export: 07/09/19 2:19 p Patient Name: SCOTTIE CURRIE Page [phone] at 1155 All edits/amendments must be made on the electronic document DICTATION DATE: 07/10/19 1155 CLOTH BLEACHING RANGE TENDER: OVIDIO 07/10/19 1155 RPT#: [id number] DC DATE: STATUS: ADM IN [facility] [address] [place] [address] END OF REPORT
[2019-07-10 13:10] VITALS: BP 108/70
--- NOTE | 2019-07-10 13:12 | MORECARE ---
CASE MANAGEMENT DISCHARGE SUMMARY PATIENT: SCOTTIE CURRIE UNIT: [id number] ADM DATE: 06/19/19 AGE: 39 : 78 SEX: F ROOM/BED: D.2202 AUTHOR: MAGDALENO SELLERS PHYSICIAN: REFERRING PHYSICIAN: JADON SMITH MD DATE OF SERVICE: 07/10/19 Discharge Plan Patient Name: SCOTTIE CURRIE Facility: [facility]:[place] : 1980 Planned Disposition: Home or Self Care Anticipated Discharge Date: Discharge Date: Expected LOS: Initial Reviewer: [email or web address] Initial Review Date: 06/19/2019 Generated: 07/10/19 2:11 pm Comments DCP- Discharge Planning Updated by [email or web address]: Donna Bledsoe on 07/10/19 12:[address] [facility] HERE TO DO TUBE FEEDING WITH PATIENT AND MOTHER. DCP- Discharge Planning Updated by [email or web address]: Donna Bledsoe on 06/22/19 1:[address] Patient Name: SCOTTIE CURRIE Admission Status: ER Accout number: [id number] Admission Date: 06-19-2019 : 1980 Admission Diagnosis: Attending: JADON SMITH Current LOS: 3 Anticipated DC Date: Planned Disposition: Home or Self Care Primary Insurance: MEDICAID [place] Discharge Planning Comments: CM met with patient to complete initial dc planning assessment. CM educated patient on the CM role and verbal consent given by patient to complete assessment. Patient lives at home with her mother where she is partially independent with her care at home. Her mother helps her with her medications at home. At discharge patient plans to return home and feels this is a safe discharge. CM discussed availability of home health, rehab services, and medical equipment. Patient has a walker at home, that she uses sometimes. Patient denied known discharge needs at this time. Patient did not want home health at this time. CM will continue to follow and will assist as needed with dc plans/needs. Loading And Unloading Supervisor: Donna Bledsoe DCPIA - Discharge Planning Initial Assessment Updated by [email or web address]: Donna Bledsoe on 06/22/19 2:48 pm * Is the patient Alert and Oriented? Yes * How many steps to enter\exit or inside your home? * PCP [facility] * [facility] * Preadmission Environment Home with Family * ADLs Partial Dependent * Partial ADLs (Assistance needed) Medication Management * Equipment Rolling Walker * List name and contact numbers for known caregivers / representatives who currently or will assist patient after discharge: KIA GARDNER [phone] MOTHER * Verbal permission to speak to the caregivers and representatives has been obtained from the patient. N/A * Community resources currently utilized None * Additional services required to return to the preadmission environment? No * Can the patient safely return to the preadmission environment? Yes * Has this patient been hospitalized within the prior 30 days at any hospital? No Coverage Notice Reviewer: [id number] Adolph Bledsoe Notice Issued Date-Time: 07/09/2019 11:40 Notice Type: Patient Choice Letter Notice Delivered To: Family Member Relationship to Patient: Mother Prospecting Driller Name: kia Delivery Method: HAND - Hand Delivered Leonila Days: Prior Verbal Notification: Recipient Understood Notice: Yes Recipient Signature: Yes Med Rec Note Co-signed by Attending: Coverage Notice Comment: lexii [place] DP export: 07/10/19 10:55 a Patient Name: SCOTTIE CURRIE Page [phone] at 1312 All edits/amendments must be made on the electronic document DICTATION DATE: 07/10/19 1311 CALIBRATION ENGINEER: OVIDIO 07/10/19 1311 RPT#: [id number] DC DATE: STATUS: ADM IN [facility] [address] [place] [address] END OF REPORT
--- NOTE | 2019-07-10 14:46 | MORECARE ---
CASE MANAGEMENT DISCHARGE SUMMARY PATIENT: SCOTTIE CURRIE UNIT: [id number] ADM DATE: 06/19/19 AGE: 39 : 76 SEX: F ROOM/BED: D.2202 AUTHOR: MAGDALENO SELLERS PHYSICIAN: REFERRING PHYSICIAN: JADON SMITH MD DATE OF SERVICE: 07/10/19 Discharge Plan Patient Name: SCOTTIE CURRIE Facility: [facility]:[place] : 1980 Planned Disposition: Home or Self Care Anticipated Discharge Date: Discharge Date: Expected LOS: Initial Reviewer: [email or web address] Initial Review Date: 06/19/2019 Generated: 07/10/19 3:45 pm Comments DCP- Discharge Planning Updated by [email or web address]: Gail Nielsen on 07/10/19 1:[address] IMM explained to patient and her mother, signed, copy given and original placed in medical record. DCP- Discharge Planning Updated by [email or web address]: Donna Bledsoe on 07/10/19 12:[address] EARL WITH [facility] HERE TO DO TUBE FEEDING WITH PATIENT AND MOTHER. DCP- Discharge Planning Updated by [email or web address]: Donna Bledsoe on 06/22/19 1:[address] Patient Name: SCOTTIE CURRIE Admission Status: ER Accout number: [id number] Admission Date: 06-19-2019 : 1980 Admission Diagnosis: Attending: JADON SMITH Current LOS: 3 Anticipated DC Date: Planned Disposition: Home or Self Care Primary Insurance: MEDICAID [place] Discharge Planning Comments: CM met with patient to complete initial dc planning assessment. CM educated patient on the CM role and verbal consent given by patient to complete assessment. Patient lives at home with her mother where she is partially independent with her care at home. Her mother helps her with her medications at home. At discharge patient plans to return home and feels this is a safe discharge. CM discussed availability of home health, rehab services, and medical equipment. Patient has a walker at home, that she uses sometimes. Patient denied known discharge needs at this time. Patient did not want home health at this time. CM will continue to follow and will assist as needed with dc plans/needs. Professor Of Chemical Engineering: Donna Bledsoe DCPIA - Discharge Planning Initial Assessment Updated by [email or web address]: Donna Bledsoe on 06/22/19 2:48 pm * Is the patient Alert and Oriented? Yes * How many steps to enter\exit or inside your home? * PCP [facility] * [facility] * Preadmission Environment Home with Family * ADLs Partial Dependent * Partial ADLs (Assistance needed) Medication Management * Equipment Rolling Walker * List name and contact numbers for known caregivers / representatives who currently or will assist patient after discharge: KIA GARDNER [phone] MOTHER * Verbal permission to speak to the caregivers and representatives has been obtained from the patient. N/A * Community resources currently utilized None * Additional services required to return to the preadmission environment? No * Can the patient safely return to the preadmission environment? Yes * Has this patient been hospitalized within the prior 30 days at any hospital? No Coverage Notice Reviewer: [id number] - Donna Bledsoe Notice Issued Date-Time: 07/09/2019 11:40 Notice Type: Patient Choice Letter Notice Delivered To: Family Member Relationship to Patient: Mother Superannuation Clerk Name: kia Delivery Method: HAND - Hand Delivered Leonila Days: Prior Verbal Notification: Recipient Understood Notice: Yes Recipient Signature: Yes Med Rec Note Co-signed by Attending: Coverage Notice Comment: lexii cabrera Reviewer: [id number] Adolph Nielsen Notice Issued Date-Time: 07/10/2019 14:20 Notice Type: IM Discharge Notice Notice Delivered To: Patient Relationship to Patient: Superannuation Clerk Name: Delivery Method: HAND - Hand Delivered Leonila Days: Prior Verbal Notification: Recipient Understood Notice: Yes Recipient Signature: Yes Med Rec Note Co-signed by Attending: Coverage Notice Comment: Patient mother at bedside. Last DP export: 07/10/19 12:11 p Patient Name: SCOTTIE CURRIE Page [phone] at 1446 All edits/amendments must be made on the electronic document DICTATION DATE: 07/10/191444 IT TECHNICAL SUPPORT SPECIALIST: OVIDIO 07/10/191444 RPT#: [id number] DC DATE: STATUS: ADM IN [facility] [address] [place] [address] END OF REPORT
--- NOTE | 2019-07-10 15:21 | MORECARE ---
CASE MANAGEMENT DISCHARGE SUMMARY PATIENT: SCOTTIE CURRIE UNIT: [id number] ADM DATE: 06/19/19 AGE: 39 : 76 SEX: F ROOM/BED: D.2202 AUTHOR: MAGDALENO SELLERS PHYSICIAN: REFERRING PHYSICIAN: JADON SMITH MD DATE OF SERVICE: 07/10/19 Discharge Plan Patient Name: SCOTTIE CURRIE Facility: [facility]:[place] : 1980 Planned Disposition: Home or Self Care Anticipated Discharge Date: Discharge Date: Expected LOS: Initial Reviewer: [id number] Initial Review Date: 06/19/2019 Generated: 07/10/19 4:21 pm Comments DCP- Discharge Planning Updated by [email or web address]: Donna Bledsoe on 07/10/19 2:[address] Patient discharging home today with mom. She will have home health from [place] I have spoke with Gretta Zhang and they will start care tomorrow. Earl with [facility] came today and taught at bedside with mom and patient. [facility] delivered the supplies to the room. CM to follow and assist with DC planning DCP- Discharge Planning Updated by [id number]: Gail Nielsen on 07/10/19 1:[address] IMM explained to patient and her mother, signed, copy given and original placed in medical record. DCP- Discharge Planning Updated by [email or web address]: Donna Bledsoe on 07/10/19 12:[address] [facility] WITH [facility] HERE TO DO TUBE FEEDING WITH PATIENT AND MOTHER. DCP- Discharge Planning Updated by [email or web address]: Donna Bledsoe on 06/22/19 1:[address] Patient Name: SCOTTIE CURRIE Admission Status: ER Accout number: [id number] Admission Date: 06-19-2019 : 1980 Admission Diagnosis: Attending: JADON SMITH Current LOS: 3 Anticipated DC Date: Planned Disposition: Home or Self Care Primary Insurance: MEDICAID [place] Discharge Planning Comments: CM met with patient to complete initial dc planning assessment. CM educated patient on the CM role and verbal consent given by patient to complete assessment. Patient lives at home with her mother where she is partially independent with her care at home. Her mother helps her with her medications at home. At discharge patient plans to return home and feels this is a safe discharge. CM discussed availability of home health, rehab services, and medical equipment. Patient has a walker at home, that she uses sometimes. Patient denied known discharge needs at this time. Patient did not want home health at this time. CM will continue to follow and will assist as needed with dc plans/needs. Musical Therapist: Donna Bledsoe DCPIA - Discharge Planning Initial Assessment Updated by [email or web address]: Donna Bledsoe on 06/22/19 2:48 pm * Is the patient Alert and Oriented? Yes * How many steps to enter\exit or inside your home? * PCP [facility] * [facility] * Preadmission Environment Home with Family * ADLs Partial Dependent * Partial ADLs (Assistance needed) Medication Management * Equipment Rolling Walker * List name and contact numbers for known caregivers / representatives who currently or will assist patient after discharge: JUAN LUIS GARDNER [phone] MOTHER * Verbal permission to speak to the caregivers and representatives has been obtained from the patient. N/A * Community resources currently utilized None * Additional services required to return to the preadmission environment? No * Can the patient safely return to the preadmission environment? Yes * Has this patient been hospitalized within the prior 30 days at any hospital? No Coverage Notice Reviewer: [id number] - Donna Bledsoe Notice Issued Date-Time: 07/09/2019 11:40 Notice Type: Patient Choice Letter Notice Delivered To: Family Member Relationship to Patient: Mother Coroner'S Juror Name: juan luis Delivery Method: HAND - Hand Delivered Leonila Days: Prior Verbal Notification: Recipient Understood Notice: Yes Recipient Signature: Yes Med Rec Note Co-signed by Attending: Coverage Notice Comment: lexii tonya cabrera Reviewer: [id number] Adolph Nielsen Notice Issued Date-Time: 07/10/2019 14:20 Notice Type: IM Discharge Notice Notice Delivered To: Patient Relationship to Patient: Coroner'S Juror Name: Delivery Method: HAND - Hand Delivered Leonila Days: Prior Verbal Notification: Recipient Understood Notice: Yes Recipient Signature: Yes Med Rec Note Co-signed by Attending: Coverage Notice Comment: Patient mother at bedside. Last DP export: 07/10/19 1:46 p Patient Name: SCOTTIE CURRIE Page [phone] at 1521 All edits/amendments must be made on the electronic document DICTATION DATE: 07/10/19 152 HIGH SCHOOL COACH: OVIDIO 07/10/19 152 RPT#: [id number] DC DATE: STATUS: ADM IN [facility] [address] [place] [address] END OF REPORT
--- NOTE | 2019-07-10 16:13 | MORECARE ---
CASE MANAGEMENT DISCHARGE SUMMARY PATIENT: SCOTTIE CURRIE UNIT: [id number] ADM DATE: 06/19/19 AGE: 39 : 76 SEX: F ROOM/BED: D.2202 AUTHOR: MAGDALENO SELLERS PHYSICIAN: REFERRING PHYSICIAN: JADON SMITH MD DATE OF SERVICE: 07/10/19 Discharge Plan Patient Name: SCOTTIE CURRIE Facility: [facility]:[place] : 1980 Planned Disposition: Home or Self Care Anticipated Discharge Date: Discharge Date: Expected LOS: Initial Reviewer: [email or web address] Initial Review Date: 06/19/2019 Generated: 07/10/19 5:13 pm Comments DCP- Discharge Planning Updated by [id number]: Donna Bledsoe on 07/10/19 2:[address] Patient discharging home today with mom. She will have home health from [place] I have spoke with Gretta Zhang and they will start care tomorrow. Earl with [facility] came today and taught at bedside with mom and patient. [facility] delivered the supplies to the room. CM to follow and assist with DC planning DCP- Discharge Planning Updated by [id number]: Gail Nielsen on 07/10/19 1:[address] IMM explained to patient and her mother, signed, copy given and original placed in medical record. DCP- Discharge Planning Updated by [email or web address]: Donna Bledsoe on 07/10/19 12:[address] [facility] WITH [facility] HERE TO DO TUBE FEEDING WITH PATIENT AND MOTHER. DCP- Discharge Planning Updated by [email or web address]: Donna Bledsoe on 06/22/19 1:[address] Patient Name: SCOTTIE CURRIE Admission Status: ER Accout number: [id number] Admission Date: 06-19-2019 : 1980 Admission Diagnosis: Attending: JADON SMITH Current LOS: 3 Anticipated DC Date: Planned Disposition: Home or Self Care Primary Insurance: MEDICAID [place] Discharge Planning Comments: CM met with patient to complete initial dc planning assessment. CM educated patient on the CM role and verbal consent given by patient to complete assessment. Patient lives at home with her mother where she is partially independent with her care at home. Her mother helps her with her medications at home. At discharge patient plans to return home and feels this is a safe discharge. CM discussed availability of home health, rehab services, and medical equipment. Patient has a walker at home, that she uses sometimes. Patient denied known discharge needs at this time. Patient did not want home health at this time. CM will continue to follow and will assist as needed with dc plans/needs. Engraver Steel Plate: Donna Bledsoe DCPIA - Discharge Planning Initial Assessment Updated by [email or web address]: Donna Bledsoe on 06/22/19 2:48 pm * Is the patient Alert and Oriented? Yes * How many steps to enter\exit or inside your home? * PCP [facility] * [facility] * Preadmission Environment Home with Family * ADLs Partial Dependent * Partial ADLs (Assistance needed) Medication Management * Equipment Rolling Walker * List name and contact numbers for known caregivers / representatives who currently or will assist patient after discharge: JUAN LUIS GARDNER [phone] MOTHER * Verbal permission to speak to the caregivers and representatives has been obtained from the patient. N/A * Community resources currently utilized None * Additional services required to return to the preadmission environment? No * Can the patient safely return to the preadmission environment? Yes * Has this patient been hospitalized within the prior 30 days at any hospital? No Coverage Notice Reviewer: [id number] - Donna Bledsoe Notice Issued Date-Time: 07/09/2019 11:40 Notice Type: Patient Choice Letter Notice Delivered To: Family Member Relationship to Patient: Mother Child Welfare Assistant Name: juan luis Delivery Method: HAND - Hand Delivered Leonila Days: Prior Verbal Notification: Recipient Understood Notice: Yes Recipient Signature: Yes Med Rec Note Co-signed by Attending: Coverage Notice Comment: geraldo cabrera Reviewer: [id number] Adolph Nielsen Notice Issued Date-Time: 07/10/2019 14:20 Notice Type: IM Discharge Notice Notice Delivered To: Patient Relationship to Patient: Child Welfare Assistant Name: Delivery Method: HAND - Hand Delivered Leonila Days: Prior Verbal Notification: Recipient Understood Notice: Yes Recipient Signature: Yes Med Rec Note Co-signed by Attending: Coverage Notice Comment: Patient mother at bedside. Reviewer: [id number] - Gail Nielsen Notice Issued Date-Time: 07/10/2019 15:50 Notice Type: Patient Choice Letter Notice Delivered To: Patient Relationship to Patient: Child Welfare Assistant Name: Delivery Method: HAND - Hand Delivered Leonila Days: Prior Verbal Notification: Recipient Understood Notice: Yes Recipient Signature: Yes Med Rec Note Co-signed by Attending: Coverage Notice Comment: GERALDO provided. Patient understood he will be in [facility]ci status. Patient states he will try to get accepted by every facility then choose after acceptance. Last DP export: 07/10/19 2:21 p Patient Name: SCOTTIE CURRIE Page [phone] at 1613 All edits/amendments must be made on the electronic document DICTATION DATE: 07/10/19 1613 INCIDENT RESPONSE LEAD: OVIDIO 07/10/19 1613 RPT#: [id number] DC DATE: STATUS: ADM IN [facility] [address] [place] [address] END OF REPORT
--- NOTE | 2019-07-10 16:25 | NUR ---
MIDLINE DISCONTINUED WITH MOTHER VERBALIZING UNDERSTANDING OF DISCHARGE INSTRUCTIONS. G-TUBE FLUSHED WITH DRESSING DRY AND INTACT. STABLE AT TIME OF DISCHARGE.
--- NOTE | 2019-07-10 18:17 | MORECARE ---
CASE MANAGEMENT DISCHARGE SUMMARY PATIENT: SCOTTIE CURRIE UNIT: [id number] ADM DATE: 06/19/19 AGE: 39 : 76 SEX: F ROOM/BED: D.2202 AUTHOR: MAGDALENO SELLERS PHYSICIAN: REFERRING PHYSICIAN: JADON SMITH MD DATE OF SERVICE: 07/10/19 Discharge Plan Patient Name: SCOTTIE CURRIE Facility: [facility]:[place] : 1980 Planned Disposition: Home or Self Care Anticipated Discharge Date: Discharge Date: 07/10/2019 Expected LOS: Initial Reviewer: [id number] Initial Review Date: 06/19/2019 Generated: 07/10/19 7:17 pm Comments DCP- Discharge Planning Updated by [email or web address]: Donna Bledsoe on 07/10/19 2:[address] Patient discharging home today with mom. She will have home health from [place] I have spoke with Gretta Zhang and they will start care tomorrow. Earl with [facility] came today and taught at bedside with mom and patient. [facility] delivered the supplies to the room. CM to follow and assist with DC planning DCP- Discharge Planning Updated by [email or web address]: Gail Nielsen on 07/10/19 1:[address] IMM explained to patient and her mother, signed, copy given and original placed in medical record. DCP- Discharge Planning Updated by [email or web address]: Donna Bledsoe on 07/10/19 12:[address] [facility] WITH [facility] HERE TO DO TUBE FEEDING WITH PATIENT AND MOTHER. DCP- Discharge Planning Updated by [email or web address]: Donna Bledsoe on 06/22/19 1:[address] Patient Name: SCOTTIE CURRIE Admission Status: ER Accout number: [id number] Admission Date: 06-19-2019 : 1980 Admission Diagnosis: Attending: JADON SMITH Current LOS: 3 Anticipated DC Date: Planned Disposition: Home or Self Care Primary Insurance: MEDICAID [place] Discharge Planning Comments: CM met with patient to complete initial dc planning assessment. CM educated patient on the CM role and verbal consent given by patient to complete assessment. Patient lives at home with her mother where she is partially independent with her care at home. Her mother helps her with her medications at home. At discharge patient plans to return home and feels this is a safe discharge. CM discussed availability of home health, rehab services, and medical equipment. Patient has a walker at home, that she uses sometimes. Patient denied known discharge needs at this time. Patient did not want home health at this time. CM will continue to follow and will assist as needed with dc plans/needs. Inspection Clerk: Donna Bledsoe DCPIA - Discharge Planning Initial Assessment Updated by [email or web address]: Donna Bledsoe on 06/22/19 2:48 pm * Is the patient Alert and Oriented? Yes * How many steps to enter\exit or inside your home? * PCP [facility] * [facility] * Preadmission Environment Home with Family * ADLs Partial Dependent * Partial ADLs (Assistance needed) Medication Management * Equipment Rolling Walker * List name and contact numbers for known caregivers / representatives who currently or will assist patient after discharge: JUAN LUIS GARDNER [phone] MOTHER * Verbal permission to speak to the caregivers and representatives has been obtained from the patient. N/A * Community resources currently utilized None * Additional services required to return to the preadmission environment? No * Can the patient safely return to the preadmission environment? Yes * Has this patient been hospitalized within the prior 30 days at any hospital? No Coverage Notice Reviewer: [id number] - Donna Bledsoe Notice Issued Date-Time: 07/09/2019 11:40 Notice Type: Patient Choice Letter Notice Delivered To: Family Member Relationship to Patient: Mother Lead Trainer Name: juan luis Delivery Method: HAND - Hand Delivered Leonila Days: Prior Verbal Notification: Recipient Understood Notice: Yes Recipient Signature: Yes Med Rec Note Co-signed by Attending: Coverage Notice Comment: lexii tonya neli cabrera Reviewer: [id number] Adolph Nielsen Notice Issued Date-Time: 07/10/2019 14:20 Notice Type: IM Discharge Notice Notice Delivered To: Patient Relationship to Patient: Lead Trainer Name: Delivery Method: HAND - Hand Delivered Leonila Days: Prior Verbal Notification: Recipient Understood Notice: Yes Recipient Signature: Yes Med Rec Note Co-signed by Attending: Coverage Notice Comment: Patient mother at bedside. Last DP export: 07/10/19 3:13 p Patient Name: SCOTTIE CURRIE Page [phone] at 1817 All edits/amendments must be made on the electronic document DICTATION DATE: 07/10/191816 HOT STONE SETTER: OVIDIO 07/10/191816 RPT#: [id number] [place] DATE:07/10/19 STATUS: DIS IN [facility] [address] [place] [address] END OF REPORT
== END 2019-07-10 16:25 | disposition home health service (06) | DRG 947 ==
LOC: D.ER 11:13 → D.MS 17:13
PROVIDERS: Emergency Medicine; Family Medicine; General Practice; Internal Medicine Gastroenterology; Internal Medicine Hematology & Oncology; Internal Medicine Nephrology; Radiology Diagnostic Radiology; Radiology Vascular & Interventional Radiology; ADMIT Family Medicine; ATTEND Family Medicine
PROC: 0W9G30Z Drainage of Peritoneal Cavity with Drainage Device, Percutaneous Approach (ICD-10-PCS; 2019-06-20)
PROC: 07DR3ZX Extraction of Iliac Bone Marrow, Percutaneous Approach, Diagnostic (ICD-10-PCS; principal; 2019-06-22 09:27)
PROC: 0DB98ZX Excision of Duodenum, Via Natural or Artificial Opening Endoscopic, Diagnostic (ICD-10-PCS; 2019-07-02)
PROC: 0DB78ZX Excision of Stomach, Pylorus, Via Natural or Artificial Opening Endoscopic, Diagnostic (ICD-10-PCS; 2019-07-02)
PROC: 0DB48ZX Excision of Esophagogastric Junction, Via Natural or Artificial Opening Endoscopic, Diagnostic (ICD-10-PCS; 2019-07-02)
PROC: 0W9G30Z Drainage of Peritoneal Cavity with Drainage Device, Percutaneous Approach (ICD-10-PCS; 2019-07-02)
PROC: 05HB33Z Insertion of Infusion Device into Right Basilic Vein, Percutaneous Approach (ICD-10-PCS; 2019-07-06)
PROC: 0DHA3UZ Insertion of Feeding Device into Jejunum, Percutaneous Approach (ICD-10-PCS; 2019-07-07)
PROC: BD16YZZ Fluoroscopy of Upper GI and Small Bowel using Other Contrast (ICD-10-PCS; 2019-07-07)
DX: R18.8 Other ascites (principal); E43 Unspecified severe protein-calorie malnutrition; D50.9 Iron deficiency anemia, unspecified; K21.0 Gastro-esophageal reflux disease with esophagitis; R10.10 Upper abdominal pain, unspecified; G80.9 Cerebral palsy, unspecified; F79 Unspecified intellectual disabilities; K21.9 Gastro-esophageal reflux disease without esophagitis; Z98.2 Presence of cerebrospinal fluid drainage device; G40.909 Epilepsy, unspecified, not intractable, without status epilepticus; D47.3 Essential (hemorrhagic) thrombocythemia; K31.84 Gastroparesis

== ENCOUNTER → 2019-10-27 12:13 | Outpatient (CLI) | payer MEDICARE ==
[2019-06-22 12:49] VITALS: BMI 24.5
--- NOTE | ~2019-10-27 | HEMODYNAMI ---
PATIENT:SCOTTIE CURRIE MEDICAL RECORD: [id number] : [birth year] [id number] ADMISSION DATE: 10/27/19 Generatedon:10/27/201914:29 Patient name: SCOTTIE CURRIE Patient #: [id number] SSN: : 1980 Date of study: 10/27/2019 Page: Of Hemodynamic Procedure Report Patient Data Patient Demographics Procedure consent was obtained First Name: SCOTTIE Gender: Female Last Name: KUSH : 1980 Middle Initial: L Age: 39 year(s) Patient #: [id number] Race: Unknown Additional ID: [id number] Contact details Address: [address] [place] [address] State: [place] City: [place] Zip code: [address] Past Medical History Allergies: No known allergies Admission Admission Data Admission Date: 10/27/2019 Admission Time: 12:13 Procedure Procedure Types Cath Procedure Peripheral Cath Diagnostic Procedure Miscellaneous Procedure Description Procedure Date Procedure Date: 10/27/2019 Procedure Start Time: 13:12 Procedure Staff Name Function Susan Quinones RT Monitor Arron Wyatt RT Monitor James Allan MD Performing Physician Procedure Data Cath Procedure Fluoroscopy Diagnostic fluoroscopy Total fluoroscopy Time: 0.3 time: 0.3 min min Diagnostic fluoroscopy Total fluoroscopy dose: 3 dose: 3 mGy mGy Hemodynamics Rest Pre Cath Intra NCS Post Cath Procedure Log Time Note 13:03:35 Arron Wyatt RT (R) (CV) sent for patient. Start room use. 13:03:52 Patient received from Outpatients to IR Alert and oriented. Tansferred to table in Supine position. 13:03:56 Signed procedure consent form obtained from patient. 13:03:59 Correct patient and procedure confirmed by team. 13:04:00 - 13:14:17 Physician arrived 13:14:18 Final Timeout: patient, procedure, and site verified with staff and physician. All members of the team are in agreement. 13:14:18 --------ALL STOP TIME OUT------ 13:14:26 Sedation plan: None Medication:Lidocaine 13:14:48 procedure started 13:18:37 GJ TUBE REMOVED 13:18:42 Procedure ended.(Physican Out) 13:19:26 Fluoroscopy time 00.30 minutes. 13:19:30 Fluoroscopy dose: 3 mGy 13:19:30 Flurop Dose total: 3 13:19:56 PT SENT HOME 13:20:26 Full Disclosure recording stopped 10 cc isovue 300 used Signature Audit [place] Stage Time Signature Unsigned Intra-Procedure 10/27/2019 Arron Quinones RT(R); 1:20:16 PM Edmundo RT Susan Quinones RT(R); (R) (CV); Susan Quinones RT(R); Joni RT(R) Susan Quinones RT(R); Susan Quinones RT(R) [place] [id number] [facility] [place] [address]
[~2019-10-27 12:13] MED LIST changes: +MIRALAX17 GM PO; +PROTONIX40 MG PO; +REGLAN5 MG PO
--- NOTE | 2019-10-27 14:38 | NUR ---
10 CC'S OF CONTRAST WAS USED TO ASSURE STATUS OF G TUBE BEFORE THE REMOVAL OF IT.
== END | disposition home or self-care (01) ==
LOC: D.RAD 12:13
PROVIDERS: ATTEND Radiology Diagnostic Radiology
DX: K31.84 Gastroparesis (principal)

== ENCOUNTER 2020-01-10 15:52 | Inpatient (IN) | payer MEDICARE ==
[~2020-01-10] VITALS: Ht 165.1 cm; Wt 46.1 kg
[2020-01-10] VITALS (22 sets, daily range): BP systolic 73–127; BP diastolic 27–97; BMI 17.0
[2020-01-10] MEDS ORDERED: ELIQUIS5 MG PO (16:37)
[2020-01-10] MEDS ORDERED: TRILEPTAL600 MG PO (16:38)
[2020-01-10] MEDS ORDERED: ASPIRIN325 MG PO (16:38)
[2020-01-10 16:52] LABS: ANION GAP 13.7 mmol/L (8-16); CALCIUM 8.5 mg/dL (8.5-10.1); CARBON DIOXIDE 25.5 mmol/L (21.0-32.0); CREATININE - SERUM 0.9 mg/dL (0.6-1.3); POTASSIUM - SERUM 3.2 mmol/L (3.5-5.1)
[2020-01-10 16:59] LABS: ALBUMIN 1.3 g/dL (3.4-5.0); BILIRUBIN - TOTAL 0.56 mg/dL (0.2-1.3); MAGNESIUM - SERUM 2.5 mg/dL (1.8-2.4); PROTEIN - SERUM 6.1 g/dL (6.4-8.2)
[2020-01-10 17:08] LABS: BACTERIA MODERATE /hpf (NEGATIVE); EPITHELIAL CELLS 0-5 /hpf (0-5); RED CELLS - URINE 0-5 /hpf (0-5); WHITE CELLS - URINE 0-5 /hpf (NEGATIVE)
[2020-01-10 17:19] LABS: HYALINE CAST 0-5 /lpf (NONE SEEN)
[2020-01-10 17:28] LABS: BASOPHILS 0.1 % (0-2); EOSINOPHILS 0 % (0-7); HEMATOCRIT 34.5 % (36.0-48.0); IMMATURE GRANULOCYTES 0.4 % (0-5); LYMPHOCYTES 1.2 % (15-50); MCH 23.8 pg (26.0-34.0); MCV 81.9 fL (80.0-100.0); MEAN PLATELET VOLUME 7.9 fL (7.4-10.4); MONOCYTES 5.4 % (2-11); NEUTROPHILS 92.9 % (40-80); PLATELET COUNT 566 10x3/uL (130-400); RBC 4.21 10x6/uL (4.00-5.40); RDW 17.2 % (11.5-14.5); WBC 19.9 10x3/uL (4.8-10.8)
--- NOTE | 2020-01-10 17:36 | NUR ---
PT TO RECEIVE 2000ML BOLUS LR PER EDP RICHARD.
--- NOTE | 2020-01-10 17:54 | NUR ---
STARTED LEVOPHED AT 5 MCG/MIN AT THIS TIME FOR BP PER DR. RAMOS
--- NOTE | 2020-01-10 18:01 | NUR ---
PT TRANSPORTED TO CT AT THIS TIME VIA STRETCHER.
--- NOTE | 2020-01-10 18:01 | NUR ---
PT HAD LOOSE BOWEL MOVEMENT THAT APPEARED RED/BROWN IN COLOR. STOOL POSITIVE FOR OCCULT BLOOD. PT CLEANED, LINENS CHANGED, AND NEW BRIEF PLACED UNDER PATIENT.
[2020-01-10 18:08] LABS: APTT 46.5 SECONDS (22.8-39.4); INR 2.22 (0.85-1.17); PROTIME 24.2 SECONDS (11.6-15.0)
[2020-01-10 18:13] LABS: C-REACTIVE PROTEIN 38.9 mg/dL (0.0-0.9)
--- NOTE | 2020-01-10 18:21 | NUR ---
PATIENT RETURNED FROM CT AT THIS TIME. PT TRANSPORTED VIA STRETCH WITH RN PRESENT.
--- NOTE | 2020-01-10 18:40 | NUR ---
CALLED REPORT TO [facility]. BED IS NOT CLEAN AT THIS TIME.
--- NOTE | 2020-01-10 19:10 | NUR ---
DURING REPORT TO [facility] ADVISED THAT PATIENT HAD RECEIVED LR BOLUS 2000ML AND ADVISED THAT PATIENT HAS HAD LEVAQUIN IV.
--- NOTE | 2020-01-10 19:10 | NUR ---
LEVOPHED INFUSING IN RIGHT HAND.
--- NOTE | 2020-01-10 19:14 | NUR ---
LEVOPHED UPPED TO 7MCG/MIN
--- NOTE | 2020-01-10 19:50 | NUR ---
1ST KCL COMPLETE
--- NOTE | 2020-01-10 20:40 | NUR ---
pt taken icu at this time. covid precautions taken.
--- NOTE | 2020-01-10 21:15 | NUR ---
PT RECIEVED FROM ER VIA STRETCHER, CONFUSED, IMMATURE MIND WITH CEREBREL PALSY, NGT TO LIS WITH MINIMAL BLOODY OUTPUT, LEFT AXILLARY PIV INTACT WITH PUFFINESS AND REDNESS AROUND SITE, RIGHT WRIST PIV INTACT WITH LEVOPHED GTT, SARMIENTO PATENT TO BSD WITH DARK URINE, LUNGS CLEAR, ON ROOM AIR, VITALS STABLE
--- NOTE | 2020-01-10 23:00 | NUR ---
PT PULLED OUT LEFT AX PIV AND NG TUBE, PLACED IN SWR, NG TUBE PLACED VIA RIGHT NARE TO LIWS, ATTEMTED TO START AN IV X SEVERAL ATTEMPT WITHOUT SUCCESS
[2020-01-11] VITALS (84 sets, daily range): BP systolic 87–137; BP diastolic 32–98; Ht 165.1 cm; Wt 46.1 kg
--- NOTE | 2020-01-11 02:00 | NUR ---
ATTEMPTED TO SITE AN IV BY 2 NURSES WITHOUT SUCCESS, BLOOD DRAWN FOR LABS FROM RIGHT BREAST, PT HAD BLOODY DIARRHES STOOL, CLEANED PER STAFF
[2020-01-11 02:12] LABS: HEMATOCRIT 35.9 % (36.0-48.0); HEMOGLOBIN 10.5 g/dL (12-16)
--- NOTE | 2020-01-11 03:15 | NUR ---
PT PULLED OUT NGT, ASKING FOR WATER, TOLD PT SHE COULD NOT HAVE WATER RIGHT NOW
--- NOTE | 2020-01-11 03:16 | NUR ---
PT REMAINS SEDATED WITH NO DISTRESS, VITALS STABLE
--- NOTE | 2020-01-11 04:31 | NUR ---
PT INCONTINENT OF STOOL, BLOODY DIARRHEA WITH A LARGE HARD STOOL, CLEANED PER STAFF, NOTED SMALL PINHOLE DECUB ON COCCYX, VITALS STABLE
--- NOTE | 2020-01-11 07:30 | NUR ---
REPORT RECEIVED. PT AWAKE. ORIENTED TO SELF AND WHERE SHE IS. PT HAS HISTORY OF CP AND SEIZURE DISORDER. PT HAS A MANAGER PACU SHUNT. SHE HAS AN IV IN HER RIGHT WRIST WITH NS AT 75ML AND LEVOPHED AT 1MCG. PT HAS A SARMIENTO CATHETER. SHE IS ON ROOM AIR. BED IN LOWEST POSITION. BED ALARM ON. WILL CONTINUE TO MONITOR.
--- NOTE | 2020-01-11 07:50 | NUR ---
LAB IN TO DRAW PT'S BLOOD.
--- NOTE | 2020-01-11 09:40 | NUR ---
PT RESTING QUIETLY. VERBALIZED UNDERSTANDING WHEN SHOWED PT HOW TO USE THE CALL LIGHT AND HOW TO ADJUST HER BED. PUT IN LEFT HAND TO USE. PT DENIES ANY TENDERNESS IN HER ABDOMEN. ASKS FOR WATER. EXPLAINED TO HER THAT SHE CAN'T HAVE ANYTHING YET AND THAT WE WILL SEE WHAT THE DOCTOR SAYS WHEN THEY ROUND. PT STATED SHE UNDERSTOOD. BED IN LOWEST POSITION WITH BED ALARM ON. WILL CONTINUE TO MONITOR.
--- NOTE | 2020-01-11 11:34 | NUR ---
BLOOD SUGAR CHECKED. NO COVERAGE NEEDED. NURSE ATTEMPTED TO DRAW BLOOD FOR LAB. UNABLE TO GET. LAB HAS SENT SEVERAL PEOPLE TO TRY AND SEVERAL NURSES HAVE TRIED. WILL GIVE PT A BREAK. BED LOWERED. PT REPOSITIONED TO MAKE COMFORTABLE. CALL LIGHT IN REACH.
--- NOTE | 2020-01-11 12:43 | NUR ---
PT INCONTINENT OF BOWEL. MAINLY LIQUID WITH ONE MEDIUM SIZE FORMED STOOL. PT CLEANED. PT ALSO THREW UP SMALL AMOUNT. NEW LINENS. REPOSITIONED IN BED.
--- NOTE | 2020-01-11 12:52 | NUR ---
CALLED AND UPDATED PT'S FAMILY.
--- NOTE | 2020-01-11 14:00 | NUR ---
PT NEGATIVE FOR COVID PER LAB RESULTS. TAKEN OUT OF DROPLET PRECAUTIONS.
--- NOTE | 2020-01-11 16:01 | NUR ---
PAGED DR YAP FOR CENTRAL LINE AND FOR SBO.
--- NOTE | 2020-01-11 16:44 | NUR ---
DR SUN AWARE OF CONSULT.
--- NOTE | 2020-01-11 20:30 | NUR ---
dr frey at bedside. update given.
--- NOTE | 2020-01-11 20:38 | NUR ---
PUT IN IR CONSULT PER DR YAP NOTES. NO CVL WAS PLACED AT THIS TIME.
--- NOTE | 2020-01-11 20:55 | NUR ---
spoke with family. update given. told about no visitation policy
--- NOTE | 2020-01-11 22:02 | NUR ---
gave meds per order. spoke wtih dr frey regarding milk of mag but being npo. stated it was ok. i gave it and she immediately began to throw up. zofran given. wants water but stated she cant have any .
--- NOTE | 2020-01-11 22:22 | NUR ---
THE ONLY IV ACCESS WE HAVE IS R HAND PERIPHERAL IV. 2 MCG OF LEVOPHED AT THIS TIME.
[2020-01-12] VITALS (60 sets, daily range): BP systolic 91–126; BP diastolic 53–95
--- NOTE | 2020-01-12 06:00 | NUR ---
IV CATHETER SEEMS TO BE LOOSE FROM SKIN. TAPED DOWN WILL MONITOR CLOSELY TO SEE IF IT IS INFILTRATED.
--- NOTE | 2020-01-12 06:01 | NUR ---
PATIENT HAD BM. SOFT BUT HARD FORMED STOOL IN IT WELL. NOT VERY MUCH STOOL.
--- NOTE | 2020-01-12 08:17 | NUR ---
CALLED PT'S MOTHER, ELIZABETH, CALLED FOR CONSENT OF PICC LINE PLACEMENT. GAVE VERBAL CONSENT. LET HER KNOW THAT PT'S NURSE, NYASIA, WOULD BE CALLING TO UPDATE HER MORE LATER.
--- NOTE | 2020-01-12 11:08 | NUR ---
0700 RECEIVED BEDSIDE REPORT ASSESSMENT COMLETEE PT REMAINS NPO DR SUN PRESENT WITH NEW ORDER FOR SUPPOSITORY
--- NOTE | 2020-01-12 11:10 | NUR ---
0800 DR YAP AT BEDSIDE FOR UPDATE ORDER SWALLOW EVAL
--- NOTE | 2020-01-12 11:11 | NUR ---
1000 MODERATE SOFT STOOL NOTED WITH SEMI HARD PIECE NOTED
--- NOTE | 2020-01-12 15:49 | NUR ---
1200 AWAITING CALL TO IR FOR LINE PLACEMENT REMAINS NPO
--- NOTE | 2020-01-12 15:50 | NUR ---
1300 TAKEN TO IR FOR PROCEEDURE
[2020-01-12 16:27] LABS: BASOPHILS 0 % (0-2); EOSINOPHILS 0.1 % (0-7); IMMATURE GRANULOCYTES 0.2 % (0-5); LYMPHOCYTES 6.4 % (15-50); MCH 23.5 pg (26.0-34.0); MCHC 28.9 g/dL (31.0-37.0); MCV 81.2 fL (80.0-100.0); MEAN PLATELET VOLUME 7.7 fL (7.4-10.4); MONOCYTES 5.4 % (2-11); NEUTROPHILS 87.9 % (40-80); RDW 17.6 % (11.5-14.5)
[2020-01-12 16:36] LABS: CALC OSMOLALITY 289 mosm/kg (275-300); CALCIUM 7.8 mg/dL (8.5-10.1); CHLORIDE - SERUM 112 mmol/L (98-107); CREATININE - SERUM 0.5 mg/dL (0.6-1.3); GLUCOSE 87 mg/dL (74-106); MAGNESIUM - SERUM 2.2 mg/dL (1.8-2.4); PHOSPHOROUS 2.9 mg/dL (2.5-4.9); RBC 2.77 10x6/uL (4.00-5.40); SODIUM 145 mmol/L (136-145); UREA NITROGEN 18 mg/dL (7-18); WBC 8.5 10x3/uL (4.8-10.8); eGFR NON AFRICAN AMERICAN > 90 mL/min (90-120)
[2020-01-12 16:38] LABS: HEMATOCRIT 22.5 % (36.0-48.0); HEMOGLOBIN 6.5 g/dL (12-16); POTASSIUM - SERUM 2.7 mmol/L (3.5-5.1)
[2020-01-12 16:39] LABS: PLATELET COUNT 334 10x3/uL (130-400)
--- NOTE | 2020-01-12 17:21 | NUR ---
1540 RETURNED TO ROOM FROM IR INITIATED FREQUENT VITAL SIGNS DOUBLE LUMEN CENTRAL LINE NOTED TO LEFT GROIN SITE SATISFACTORY BLOOD SPECIMEN COLLECTED AND SENT TO LAB LEVOPHED WAS TITRATED DOWN WHILE IN IR AND REMAINS OFF
--- NOTE | 2020-01-12 17:23 | NUR ---
CRITICAL LAB RESULTS CALLED NOTIFIED DR MEREDITH WHO STATED SHE WOULD PUT IN NEW ORDERS HGB 6.5 K 2.7
--- NOTE | 2020-01-12 18:07 | NUR ---
1745 STARTED 1ST UNIT PRBC
--- NOTE | 2020-01-12 19:27 | NUR ---
first potassium hanging started at this time. will follow up with second bag after this one is done and the final bag.
--- NOTE | 2020-01-12 19:29 | NUR ---
patient states that she is feeling nauseos at this time. offered zofran patient stated she is okay for now and doesnt need the zofran.
--- NOTE | 2020-01-12 22:12 | NUR ---
PATIENT NOT COUGHING. CAN NOT COLLECT RESP CULTURE.
[2020-01-13] VITALS (16 sets, daily range): BP systolic 112–140; BP diastolic 61–86
--- NOTE | 2020-01-13 02:40 | NUR ---
POTASSIUM INFUSING THROUGH GROIN CENTRAL LINE.
[2020-01-13 04:33] LABS: BASOPHILS 0.1 % (0-2); EOSINOPHILS 0.1 % (0-7); IMMATURE GRANULOCYTES 0.3 % (0-5); LYMPHOCYTES 5.6 % (15-50); MCH 26.1 pg (26.0-34.0); MCHC 31.4 g/dL (31.0-37.0); MCV 83.1 fL (80.0-100.0); MEAN PLATELET VOLUME 8.1 fL (7.4-10.4); MONOCYTES 5.2 % (2-11); NEUTROPHILS 88.7 % (40-80); PLATELET COUNT 280 10x3/uL (130-400); RDW 16.2 % (11.5-14.5); WBC 8.9 10x3/uL (4.8-10.8)
--- NOTE | 2020-01-13 04:41 | NUR ---
PATIENT HAD A BM. BM APPEARED TO BE VERY THIN LIGHT BROWN LIQUID.
[2020-01-13 04:44] LABS: HEMOGLOBIN 9.1 g/dL (12-16); RBC 3.49 10x6/uL (4.00-5.40)
[2020-01-13 04:48] LABS: CARBON DIOXIDE 22.9 mmol/L (21.0-32.0); CHLORIDE - SERUM 114 mmol/L (98-107); CREATININE - SERUM 0.4 mg/dL (0.6-1.3); MAGNESIUM - SERUM 1.8 mg/dL (1.8-2.4); SODIUM 144 mmol/L (136-145); eGFR NON AFRICAN AMERICAN > 90 mL/min (90-120)
[2020-01-13 05:02] LABS: CALC OSMOLALITY 283 mosm/kg (275-300); CALCIUM 6.9 mg/dL (8.5-10.1); GLUCOSE 65 mg/dL (74-106); PHOSPHOROUS 1.9 mg/dL (2.5-4.9); POTASSIUM - SERUM 3.3 mmol/L (3.5-5.1); UREA NITROGEN 10 mg/dL (7-18)
--- NOTE | 2020-01-13 07:30 | NUR ---
REPORT RECIEVED, SHIFT ASSESSMENT COMPLETE, PT IS CONFUSED LYING IN BED, ON RA WITH 97% O2 SAT, ALL PPP, VSS, WILL CON'T TO MONITOR
--- NOTE | 2020-01-13 09:00 | NUR ---
PT RESTING COMFORTABLY AT THIS TIME, VSS, CALL LIGHT IN REACH
--- NOTE | 2020-01-13 10:30 | NUR ---
NOTIFIED SARAH FAMILY WOULD LIKE TO SPEAK WITH THEM
--- NOTE | 2020-01-13 11:00 | NUR ---
PT C/O OF NAUSEA, ORDERED ZOFRAN GIVEN
--- NOTE | 2020-01-13 12:37 | NUR ---
Nutrition follow-up: Pt remains NPO Speech evaluation today with recommendations for puree with thin liquids Labs reviewed Wt: 101# RDN will monitor pts diet advancement and tolerance.
--- NOTE | 2020-01-13 13:00 | NUR ---
PT RESTING AT THIS TIME, VSS, CALL LIGHT IN REACH
--- NOTE | 2020-01-13 15:00 | NUR ---
UPDATE GIVEN TO FAMILY OVER PHONE, THEY ARE UPSET THAT NO DOCTOR HAS CALLED THEM YET
--- NOTE | 2020-01-13 15:25 | NUR ---
REPORT CALLED TO [facility] ON MED SURG
--- NOTE | 2020-01-13 16:37 | NUR ---
TO ROOM 2201 FROM ICU VIA BED. PATIENT IS WITHOUT DISTRESS.MOVED TO BED WITH ASSIST. REDNESS NOTED TO BUTTOCKS.CALL LIGHT IN REACH. DOOR OPEN
[2020-01-14 04:00] VITALS: BP 116/80
[2020-01-14 07:51] LABS: BASOPHILS 0.1 % (0-2); EOSINOPHILS 0.6 % (0-7); HEMATOCRIT 33.8 % (36.0-48.0); HEMOGLOBIN 10.6 g/dL (12-16); IMMATURE GRANULOCYTES 0.3 % (0-5); LYMPHOCYTES 7.9 % (15-50); MCH 26.4 pg (26.0-34.0); MCHC 31.4 g/dL (31.0-37.0); MCV 84.1 fL (80.0-100.0); MEAN PLATELET VOLUME 8.2 fL (7.4-10.4); MONOCYTES 4.3 % (2-11); NEUTROPHILS 86.8 % (40-80); PLATELET COUNT 226 10x3/uL (130-400); RBC 4.02 10x6/uL (4.00-5.40); RDW 16.3 % (11.5-14.5); WBC 8.8 10x3/uL (4.8-10.8)
[2020-01-14 08:14] LABS: CALC OSMOLALITY 285 mosm/kg (275-300); CALCIUM 7.7 mg/dL (8.5-10.1); CARBON DIOXIDE 25.3 mmol/L (21.0-32.0); CHLORIDE - SERUM 112 mmol/L (98-107); CREATININE - SERUM 0.5 mg/dL (0.6-1.3); GLUCOSE 76 mg/dL (74-106); MAGNESIUM - SERUM 1.9 mg/dL (1.8-2.4); SODIUM 145 mmol/L (136-145); eGFR NON AFRICAN AMERICAN > 90 mL/min (90-120)
[2020-01-14 08:15] LABS: PHOSPHOROUS 2.6 mg/dL (2.5-4.9); UREA NITROGEN 7 mg/dL (7-18)
--- NOTE | 2020-01-14 09:20 | NUR ---
SHE IS AWAKE, TALKING. HER MOM IS AT THE BEDSIDE. SHE HAS HAD A BM ON HERSELF. SHE HAS SARMIENTO, THE CALL LIGHT IS WITHIN REACH. SHE IS WATCHING TV.
[2020-01-14 10:59] VITALS: BP 122/80
[2020-01-14 13:16] VITALS: BP 138/85
--- NOTE | 2020-01-14 15:59 | MORECARE ---
CASE MANAGEMENT DISCHARGE SUMMARY PATIENT: SCOTTIE CURRIE UNIT: [id number] ADM DATE: 01/10/20 AGE: 39 : 78 SEX: F ROOM/BED: D.2201 AUTHOR: MAGDALENO SELLERS PHYSICIAN: REFERRING PHYSICIAN: CHEYENNE LI MD DATE OF SERVICE: 01/14/20 Discharge Plan Patient Name: SCOTTIE CURRIE [facility] [facility] 1980 Planned Disposition: Inpatient Rehab Facility Anticipated Discharge Date: Discharge Date: Expected LOS: Initial Reviewer: [email or web address] Initial Review Date: 01/10/2020 Generated: 01/14/20 4:58 pm Comments DCP- Discharge Planning Updated by [id number]: Donna Bledsoe on 01/14/20 2:[address] PATIENT'S MOTHER STOPPED ME IN THE DYER AND WANTED TO TALK ABOUT INPATIENT REHAB AT [facility]. A REFERRAL HAS BEEN MADE KIA ([facility]) [phone] Patient Name: SCOTTIE CURRIE Page [id number] at 1559 All edits/amendments must be made on the electronic document DICTATION DATE: 01/14/201557 EXTRUSION DIE CORRECTOR: OVIDIO 01/14/201557 RPT#: [id number] DC DATE: STATUS: ADM IN [facility] [address] [place] [address] END OF REPORT
[2020-01-14 17:29] LABS: BILIRUBIN NEGATIVE (NEGATIVE); GLUCOSE NEGATIVE (NEGATIVE); KETONE NEGATIVE (NEGATIVE); NITRITE NEGATIVE (NEGATIVE); UROBILINOGEN NORMAL (NORMAL)
[2020-01-14 17:32] LABS: WHITE CELLS - URINE 0-5 /hpf (NEGATIVE)
[2020-01-14 17:33] LABS: BACTERIA FEW /hpf (NEGATIVE); EPITHELIAL CELLS 0-5 /hpf (0-5); GRANULAR CAST 0-5 /lpf (NONE SEEN)
[2020-01-14 18:02] VITALS: BP 133/79
[2020-01-14 20:00] VITALS: BP 120/82
--- NOTE | 2020-01-15 02:51 | NUR ---
ASSESSED AT THE BEGINNING OF THE SHIFT. PT IS ALERT AND APPEARS TO BE ORIENTED BUT DUE TO HER LEVEL OF SPEECH IT IS HARD TO TELL. HER SPEECH IS GARBLED AND SHE WILL NOT ANSWER MOST THINGS BUT YOU CAN COMMUNICATE. HER ANSWERS ARE ONE WORD AND HARD TO UNDERSTAND. SHE HAD SOMNE DIFFICULTY WITH TAKING ONE LARGER PILL (CARAFATE) BUT DID WELL WITH THE REST. SHE HAS A SARMIENTO TO VOID AND IS ON ROOM AIR. AT THIS TIME SHE IS ASLEEP WITH NO DISTRESS NOTED.
[2020-01-15 04:00] VITALS: BP 112/79
--- NOTE | 2020-01-15 07:40 | NUR ---
AWAKE AND ALERT. ORIENTED X3. NO C/O AT THIS TIME. LUNGS ARE CLEAR BILATERALLY, NO COUGH NOTED. SKIN IS INTACT WITHOUT REDNESS. PICC TO LEFT GROIN IS PATENT WITHOUT REDNESS AT INSERTION SITE. SARMIENTO PATENT WITH CLEAR JHOAN URINE. NO NEEDS NOTED.
[2020-01-15 08:36] LABS: BASOPHILS 0.1 % (0-2); EOSINOPHILS 3.2 % (0-7); HEMATOCRIT 35.3 % (36.0-48.0); HEMOGLOBIN 11.1 g/dL (12-16); IMMATURE GRANULOCYTES 1.1 % (0-5); LYMPHOCYTES 9.7 % (15-50); MCH 26.6 pg (26.0-34.0); MCHC 31.4 g/dL (31.0-37.0); MCV 84.4 fL (80.0-100.0); MONOCYTES 5.7 % (2-11); NEUTROPHILS 80.2 % (40-80); RBC 4.18 10x6/uL (4.00-5.40); RDW 16.4 % (11.5-14.5); WBC 7.1 10x3/uL (4.8-10.8)
[2020-01-15 08:37] LABS: PLATELET COUNT 175 10x3/uL (130-400)
[2020-01-15 08:44] LABS: CALCIUM 7.8 mg/dL (8.5-10.1); CARBON DIOXIDE 26.3 mmol/L (21.0-32.0); CHLORIDE - SERUM 109 mmol/L (98-107); CREATININE - SERUM 0.4 mg/dL (0.6-1.3); GLUCOSE 87 mg/dL (74-106); MAGNESIUM - SERUM 1.5 mg/dL (1.8-2.4); PHOSPHOROUS 2.8 mg/dL (2.5-4.9); SODIUM 142 mmol/L (136-145); eGFR NON AFRICAN AMERICAN > 90 mL/min (90-120)
[2020-01-15 08:46] LABS: CALC OSMOLALITY 278 mosm/kg (275-300); UREA NITROGEN 3 mg/dL (7-18)
[2020-01-15 08:48] LABS: POTASSIUM - SERUM 2.9 mmol/L (3.5-5.1)
[2020-01-15 09:46] VITALS: BP 141/97
--- NOTE | 2020-01-15 12:02 | NUR ---
FSBS 91. NO COVERAGE REQUIRED.
[2020-01-15 12:15] VITALS: BP 135/89
--- NOTE | 2020-01-15 12:20 | NUR ---
REHAB PRESCREENING Rehab referral received and chart reviewed. Speech is following this patient. Both PT and OT evaluations are pending. Rehab will continue to follow for these evaluations in order to assess admission criteria to Acute Inpatient Rehab. This patient certainly has a rehab diagnosis. Thank you for this referral! Kala Velasquez, ROOF PAINTER Rehab PD
--- NOTE | 2020-01-15 13:00 | NUR ---
ATE SMALL AMOUNT OF LUNCH WITH MOM'S ASSISTANCE.
--- NOTE | 2020-01-15 14:16 | NUR ---
HAD SMALL AMOUNT OF EMISIS. SKIN CARE PER STAFF. LINENS CHANGED. GIVEN 4MG ZOFRAN SLOW IVP FOR CONTINUED C/O NAUSEA. WILL MONITOR.
--- NOTE | 2020-01-15 14:27 | MORECARE ---
CASE MANAGEMENT DISCHARGE SUMMARY PATIENT: SCOTTIE CURRIE UNIT: [id number] ADM DATE: 01/10/20 AGE: 39 : 76 SEX: F ROOM/BED: D.2201 AUTHOR: MAGDALENO SELLERS PHYSICIAN: REFERRING PHYSICIAN: CHEYENNE LI MD DATE OF SERVICE: 01/15/20 Discharge Plan Patient Name: SCOTTIE CURRIE Facility: [facility]:[place] : 1980 Planned Disposition: Inpatient Rehab Facility Anticipated Discharge Date: Discharge Date: Expected LOS: Initial Reviewer: [email or web address] Initial Review Date: 01/10/2020 Generated: 01/15/20 3:27 pm Comments DCP- Discharge Planning Updated by [email or web address]: Donna Bledsoe on 01/14/20 2:[address] PATIENT'S MOTHER STOPPED ME IN THE DYER AND WANTED TO TALK ABOUT INPATIENT REHAB AT [facility]. A REFERRAL HAS BEEN MADE KIA (MOM) [phone] DCPIA - Discharge Planning Initial Assessment Updated by [email or web address]: Donna Bledsoe on 01/15/20 2:22 pm * Is the patient Alert and Oriented? Yes * How many steps to enter\exit or inside your home? * PCP LESLY * Pharmacy [facility] * Preadmission Environment Home with Family * ADLs Partial Dependent * Partial ADLs (Assistance needed) Ambulation Medication Management * Equipment Wheelchair * List name and contact numbers for known caregivers / representatives who currently or will assist patient after discharge: KIA (MOTHER) [phone] * Verbal permission to speak to the caregivers and representatives has been obtained from the patient. N/A * Community resources currently utilized Home Health * Please name any agencies selected above. CURRENT WITH [facility] * Additional services required to return to the preadmission environment? Yes * Can the patient safely return to the preadmission environment? No * Has this patient been hospitalized within the prior 30 days at any hospital? No Last DP export: 01/14/20 2:59 p Patient Name: SCOTTIE CURRIE Page [id number] at 1427 All edits/amendments must be made on the electronic document DICTATION DATE: 01/15/201426 BATCHER OPERATOR: OVIDIO 01/15/201426 RPT#: [id number] DC DATE: STATUS: ADM IN [facility] [address] [place] [address] END OF REPORT
--- NOTE | 2020-01-15 14:43 | MORECARE ---
CASE MANAGEMENT DISCHARGE SUMMARY PATIENT: SCOTTIE CURRIE UNIT: [id number] ADM DATE: 01/10/20 AGE: 39 : 76 SEX: F ROOM/BED: D.2201 AUTHOR: VERITODOC PHYSICIAN: REFERRING PHYSICIAN: CHEYENNE LI MD DATE OF SERVICE: 01/15/20 Discharge Plan Patient Name: SCOTTIE CURRIE Facility: [facility]:[place] : 1980 Planned Disposition: Inpatient Rehab Facility Anticipated Discharge Date: Discharge Date: Expected LOS: Initial Reviewer: [email or web address] Initial Review Date: 01/10/2020 Generated: 01/15/20 3:43 pm Comments DCP- Discharge Planning Updated by [id number]: Donna Bledsoe on 01/15/20 1:[address] Patient Name: SCOTTIE CURRIE Admission Status: ER Accout number: [id number] Admission Date: 01-10-2020 : 1980 Admission Diagnosis:SEPSIS, UNSPECIFIED ORGANISM Attending: CHEYENNE DOMINIQUE Current LOS: 5 Anticipated DC Date: Planned Disposition: Inpatient Rehab Facility Primary Insurance: MEDICARE A & B Discharge Planning Comments: CM met with patient to complete initial dc planning assessment. CM educated patient on the CM role and verbal consent given by patient to complete assessment. Patient lives at home with her mother where her mom is her guardian. At discharge patient plans to return home and feels this is a safe discharge. CM discussed availability of home health, rehab services, and medical equipment. Mom wants her to go to inpatient rehab at [facility]. LEXII signed and placed in chart. The patient has a wheelchair at home, but usually does not have to use it. Mom says she is VERY weak and needs rehab. IMM also served and signed. Patient has been using [facility] with PT & when discharged will want to continue those services at home. Patient denied known discharge needs at this time. CM will continue to follow and will assist as needed with dc plans/needs. Fence Laborer: Donna Bledsoe DCP- Discharge Planning Updated by [email or web address]: Donna Bledsoe on 01/14/20 2:[address] PATIENT'S MOTHER STOPPED ME IN THE DYER AND WANTED TO TALK ABOUT INPATIENT REHAB AT [facility]. A REFERRAL HAS BEEN MADE KIA (MOM) [phone] DCPIA - Discharge Planning Initial Assessment Updated by [email or web address]: Donna Bledsoe on 01/15/20 2:22 pm * Is the patient Alert and Oriented? Yes * How many steps to enter\exit or inside your home? * PCP LESLY * Pharmacy [facility] * Preadmission Environment Home with Family * ADLs Partial Dependent * Partial ADLs (Assistance needed) Ambulation Medication Management * Equipment Wheelchair * List name and contact numbers for known caregivers / representatives who currently or will assist patient after discharge: KIA (MOTHER) [phone] * Verbal permission to speak to the caregivers and representatives has been obtained from the patient. N/A * Community resources currently utilized Home Health * Please name any agencies selected above. CURRENT WITH [facility] * Additional services required to return to the preadmission environment? Yes * Can the patient safely return to the preadmission environment? No * Has this patient been hospitalized within the prior 30 days at any hospital? No Coverage Notice Reviewer: [id number] Adolph Bledsoe Notice Issued Date-Time: 01/15/2020 14:20 Notice Type: IM Discharge Notice Notice Delivered To: Family Member Relationship to Patient: Mother Creative Writing Professor Name: kia Delivery Method: HAND - Hand Delivered Leonila Days: Prior Verbal Notification: Recipient Understood Notice: Yes Recipient Signature: Yes Med Rec Note Co-signed by Attending: Coverage Notice Comment: imm served Reviewer: [email or web address] Adolph Bledsoe Notice Issued Date-Time: 01/15/2020 14:20 Notice Type: Patient Choice Letter Notice Delivered To: Family Member Relationship to Patient: Mother Creative Writing Professor Name: kia Delivery Method: HAND - Hand Delivered Leonila Days: Prior Verbal Notification: Recipient Understood Notice: Yes Recipient Signature: Yes Med Rec Note Co-signed by Attending: Coverage Notice Comment: lexii for inaptient rehab Last DP export: 01/15/20 1:27 p Patient Name: SCOTTIE CURRIE Page 05602 at 1443 All edits/amendments must be made on the electronic document DICTATION DATE: 01/15/20 1443 OIL RAG WASHER: OVIDIO 01/15/20 1443 RPT#: [id number] DC DATE: STATUS: ADM IN [facility] [address] [place] [address] END OF REPORT
[2020-01-15 16:33] VITALS: BP 136/91
--- NOTE | 2020-01-15 17:00 | NUR ---
FSBS 83. NO COVERAGE REQUIRED. REFUSED TO EAT SUPPER. ASSISTED AND ENCOURAGED TO AT LEAST TRY. ATE ALL OF MASHED POTATOES AND GRAVY. DENIES NEEDS. NO CHANGES NOTED.
--- NOTE | 2020-01-15 19:47 | NUR ---
OT NOTE: PT REQUIRED UE AAROM/PROM TOLERATED. PT DID NOT VERBALLY RESPOND TO QUESTIONS. PT COMPLETED SIMPLE HYGIENE TASKS WITH MAX/TOTAL A. 7-151 THANK YOU,JANIYA DYE
[2020-01-15 20:00] VITALS: BP 132/86
[2020-01-16 00:18] VITALS: BP 127/82
[2020-01-16 04:00] VITALS: BP 129/80
[2020-01-16 07:10] LABS: CALCIUM 7.5 mg/dL (8.5-10.1); CARBON DIOXIDE 28.5 mmol/L (21.0-32.0); CHLORIDE - SERUM 107 mmol/L (98-107); CREATININE - SERUM 0.3 mg/dL (0.6-1.3); GLUCOSE 98 mg/dL (74-106); SODIUM 141 mmol/L (136-145); eGFR NON AFRICAN AMERICAN > 90 mL/min (90-120)
[2020-01-16 07:30] LABS: CALC OSMOLALITY 276 mosm/kg (275-300); UREA NITROGEN 2 mg/dL (7-18)
[2020-01-16 07:35] LABS: POTASSIUM - SERUM 2.5 mmol/L (3.5-5.1)
--- NOTE | 2020-01-16 09:40 | NUR ---
PT NOT RESPONDING VERBALLY. HAVING A LOT OF NAUSEA, MEDICATED PER ORDERS, WILL CONTINUE TO MONITOR. SARMIENTO IN PLACE, URINE YELLOW AND CLEAR. CENTRAL LINE TO LEFT GROIN, PATENT, DRESSING CDI. BED LOW, CALL LIGHT IN REACH. NO OTHER NEEDS AT THIS TIME.
[2020-01-16 09:42] VITALS: BP 140/105
[2020-01-16 17:15] VITALS: BP 138/81
--- NOTE | 2020-01-16 19:00 | NUR ---
PATIENT ALERT AND ORIENTED. PATIENT HAS CP AND SPEECH IMPEDIMENT BUT EASILY UNDERSTANDABLE AND COMMUNICATES WELL. PATIENT HAS LEFT GROIN CENTRAL LINE THAT IS PATENT AND CURRENTLY INFUSING FLUIDS/MEDCICATIONS PER ORDER. PATIENT ALSO HAS SARMIENTO CATHETER THAT IS DRAINING YELLOW URINE. ASSESSMENT COMPLETE,SEE CHART. PATIENT STATES SHE FEELS NAUSEATED OFF AND ON. SPOKE WITH PATIENT BAOUT MEDICATIONS, PATIENT STATES SHE DOES NOT WANT TO TAKE ANYTHING SHE HAS TO SWALLOW DUE TO THE NAUSEA. SPOKE WITH PATIENT AT LENGTH ABOUT IMPORTANCE OF MEDICATION. REACHED AGREEMENT OF LAWANDA 30 MINUTES BEFORE GRAZYNA AND CHRISTO. DENIES FURTHER NEEDS AT THIS TIME. CALL LIGHT CLOSE. CPOC.
[2020-01-16 20:00] VITALS: BP 120/82
[2020-01-17] VITALS: BP 118/76
[2020-01-17 02:42] LABS: BILIRUBIN NEGATIVE (NEGATIVE); GLUCOSE NEGATIVE (NEGATIVE); KETONE NEGATIVE (NEGATIVE); NITRITE NEGATIVE (NEGATIVE); UROBILINOGEN NORMAL (NORMAL)
--- NOTE | 2020-01-17 03:30 | NUR ---
RESTING WITH NO SIGNS OR SYMPTOMS OF DISTRESS AT THIS TIME. CALL LIGHT CLOSE. CPOC.
[2020-01-17 04:00] VITALS: BP 121/72
[2020-01-17 07:08] LABS: BASOPHILS 0.1 % (0-2); EOSINOPHILS 2.7 % (0-7); HEMATOCRIT 33.7 % (36.0-48.0); HEMOGLOBIN 10.4 g/dL (12-16); IMMATURE GRANULOCYTES 1.3 % (0-5); LYMPHOCYTES 9.3 % (15-50); MCH 26.1 pg (26.0-34.0); MCHC 30.9 g/dL (31.0-37.0); MCV 84.5 fL (80.0-100.0); MEAN PLATELET VOLUME 8.4 fL (7.4-10.4); MONOCYTES 6.7 % (2-11); NEUTROPHILS 79.9 % (40-80); PLATELET COUNT 206 10x3/uL (130-400); RBC 3.99 10x6/uL (4.00-5.40); RDW 16.7 % (11.5-14.5); WBC 6.7 10x3/uL (4.8-10.8)
[2020-01-17 07:17] LABS: CALC OSMOLALITY 270 mosm/kg (275-300); CALCIUM 7.5 mg/dL (8.5-10.1); CARBON DIOXIDE 28.4 mmol/L (21.0-32.0); CHLORIDE - SERUM 106 mmol/L (98-107); GLUCOSE 77 mg/dL (74-106); SODIUM 138 mmol/L (136-145); UREA NITROGEN 2 mg/dL (7-18)
[2020-01-17 07:19] LABS: CREATININE - SERUM 0.4 mg/dL (0.6-1.3); MAGNESIUM - SERUM 2.2 mg/dL (1.8-2.4); eGFR NON AFRICAN AMERICAN > 90 mL/min (90-120)
[2020-01-17 09:07] VITALS: BP 120/81
[2020-01-17 13:48] VITALS: BP 134/90
--- NOTE | 2020-01-17 13:49 | NUR ---
PT NOT RESPONDING VERBALLY. BREATH SOUNDS CLEAR BILAT. CENTRAL LINE TO LEFT GROIN, PATENT, DRESSING CDI. PT AGREES TO FEELING BETTER. NO OTHER NEEDS AT THIS TIME.
[2020-01-17 17:03] VITALS: BP 173/95
[2020-01-17 20:00] VITALS: BP 150/78
[2020-01-18] VITALS: BP 142/67
[2020-01-18 06:41] LABS: CALC OSMOLALITY 262 mosm/kg (275-300); CALCIUM 7.6 mg/dL (8.5-10.1); CARBON DIOXIDE 28.3 mmol/L (21.0-32.0); CHLORIDE - SERUM 103 mmol/L (98-107); CREATININE - SERUM 0.5 mg/dL (0.6-1.3); GLUCOSE 86 mg/dL (74-106); MAGNESIUM - SERUM 1.7 mg/dL (1.8-2.4); SODIUM 134 mmol/L (136-145); UREA NITROGEN 1 mg/dL (7-18); eGFR NON AFRICAN AMERICAN > 90 mL/min (90-120)
[2020-01-18 06:42] LABS: POTASSIUM - SERUM 2.9 mmol/L (3.5-5.1)
[2020-01-18 06:50] LABS: BASOPHILS 0.2 % (0-2); EOSINOPHILS 2.1 % (0-7); IMMATURE GRANULOCYTES 1.9 % (0-5); LYMPHOCYTES 10.5 % (15-50); MCH 26.9 pg (26.0-34.0); MCHC 31.8 g/dL (31.0-37.0); MCV 84.5 fL (80.0-100.0); MEAN PLATELET VOLUME 8.1 fL (7.4-10.4); MONOCYTES 6.9 % (2-11); NEUTROPHILS 78.4 % (40-80); PLATELET COUNT 173 10x3/uL (130-400); RDW 16.8 % (11.5-14.5)
[2020-01-18 06:54] LABS: HEMATOCRIT 40.9 % (36.0-48.0); RBC 4.84 10x6/uL (4.00-5.40); WBC 4.2 10x3/uL (4.8-10.8)
--- NOTE | 2020-01-18 08:27 | NUR ---
SHE IS SLEEPY THIS MORNING. THE CALL LIGHT IS WITHIN REACH, HAS A SARMIENTO. DENIES ANY PAIN.
[2020-01-18 08:41] VITALS: BP 133/98
[2020-01-18 12:27] VITALS: BP 128/92
--- NOTE | 2020-01-18 13:49 | NUR ---
Reviewed patient's chart today for the ARU. The rehab is currently on a bed hold and has no available beds or discharges today. According to the therapy notes she has still only sat on the side of the bed when she became nauseated. To qualify for the ARU she must be able and willing to participate in 3 hrs of therapy 5 days a week. Her mother states she was ambulating short distances 15ft with therapy at home, prior to admit. If she cannot ambulate short distances now, a SNF may be more appropriate for her at this time. Discussed with the CM oSl Mccann RN Clinical liaison, Rehab
--- NOTE | 2020-01-18 15:32 | NUR ---
OT NOTE: PT COMPLETED SUPINE TO SIT WITH MOD A. PT COMPLETED EOB SITTING BALANCE WITH CGA. PT COMPLETED BUE AROM EXS AT EOB. PT EXHIBITED DECREASED AROM . PT REQUIRED TOTAL A WITH LB HYGIENE TASKS. PT REQUIRED MIN/MOD A WITH SIDE ROLLING. [phone] THANK YOU,JANIYA DYE
[2020-01-18 16:08] LABS: AEROBE ID Final report (())
[2020-01-18 16:38] VITALS: BP 155/73
[2020-01-18 16:56] LABS: MAGNESIUM - SERUM 1.7 mg/dL (1.8-2.4)
[2020-01-18 17:00] LABS: POTASSIUM - SERUM 3.8 mmol/L (3.5-5.1)
--- NOTE | 2020-01-18 19:52 | NUR ---
DISCHARGED VIA MAX ASSIST MALE NURSE TWO NURSES X2.PRISION GUARDS IN ASSIST X2.
[2020-01-18 20:00] VITALS: BP 128/94
--- NOTE | 2020-01-18 20:58 | NUR ---
REC'D WALKING ROUNDS CHGING SHIFT IN BED WATCHING TV.NON-VERBAL WHEN ASKED IF STILL SICK OF STOMACH NODS HEAD YES.WILL CONTINUE TO MONITOR FOR ANY CHGES AND FOLLOW CURRENT PLAN OF CARE
[2020-01-19] VITALS: BP 131/86
[2020-01-19 04:00] VITALS: BP 166/90
[2020-01-19 06:25] LABS: CALCIUM 7.3 mg/dL (8.5-10.1); CHLORIDE - SERUM 105 mmol/L (98-107); CREATININE - SERUM 0.4 mg/dL (0.6-1.3); GLUCOSE 84 mg/dL (74-106); MAGNESIUM - SERUM 1.6 mg/dL (1.8-2.4); SODIUM 138 mmol/L (136-145); eGFR NON AFRICAN AMERICAN > 90 mL/min (90-120)
[2020-01-19 06:43] LABS: BASOPHILS 0.2 % (0-2); EOSINOPHILS 2.2 % (0-7); LYMPHOCYTES 11.4 % (15-50); MCH 25.8 pg (26.0-34.0); MCHC 30.2 g/dL (31.0-37.0); MCV 85.4 fL (80.0-100.0); MEAN PLATELET VOLUME 8.2 fL (7.4-10.4); MONOCYTES 7.9 % (2-11); NEUTROPHILS 77.3 % (40-80)
[2020-01-19 06:44] LABS: CALC OSMOLALITY 270 mosm/kg (275-300); POTASSIUM - SERUM 3.1 mmol/L (3.5-5.1); RBC 3.76 10x6/uL (4.00-5.40); UREA NITROGEN 2 mg/dL (7-18); WBC 5.8 10x3/uL (4.8-10.8)
[2020-01-19 06:45] LABS: HEMATOCRIT 32.1 % (36.0-48.0); HEMOGLOBIN 9.7 g/dL (12-16); PLATELET COUNT 234 10x3/uL (130-400)
--- NOTE | 2020-01-19 08:36 | NUR ---
SHE IS ALERT, HAS A SARMIENTO. HER ARMS ARE SWOLLEN. SHE HAS A LEFT GROIN CENTRAL LINE. SHE DOES NOT EAT THE HOSPITAL FOOD, BUT HER MOM BROUGHT HER SARAH OLGUIN AND SHE IS EATING THAT. THE CALL LIGHT IS WITHIN REACH AND THE BED ALARM IS ON.
[2020-01-19 09:07] VITALS: BP 141/90
[2020-01-19] MEDS ORDERED: ALBUTEROL2.5 MG/3 M UPD (11:33)
[2020-01-19] MEDS ORDERED: FLAGYL 500500 MG/100 IV (11:33)
[2020-01-19] MEDS ORDERED: CARAFATE1 G PO (11:34)
[2020-01-19] MEDS ORDERED: LISINOPRIL5 MG PO (11:34)
[2020-01-19] MEDS ORDERED: MIRALAX17 GM PO (11:34)
[2020-01-19] MEDS ORDERED: FLORAJEN3 CAPS460 MG PO (11:34)
[2020-01-19] MEDS ORDERED: REGLAN INJ10 MG/2 ML IV (11:34)
[2020-01-19] MEDS ORDERED: PROTONIX IV IV (11:35)
[2020-01-19 12:42] VITALS: BP 141/92
--- NOTE | 2020-01-19 12:44 | MORECARE ---
CASE MANAGEMENT DISCHARGE SUMMARY PATIENT: SCOTTIE CURRIE UNIT: [id number] ADM DATE: 01/10/20 AGE: 39 : 76 SEX: F ROOM/BED: D.2201 AUTHOR: MAGDALENO SELLERS PHYSICIAN: REFERRING PHYSICIAN: CHEYENNE LI MD DATE OF SERVICE: 01/19/20 Discharge Plan Patient Name: SCOTTIE CURRIE Facility: [facility]:[place] : 1980 Planned Disposition: Inpatient Rehab Facility Anticipated Discharge Date: Discharge Date: Expected LOS: Initial Reviewer: [email or web address] Initial Review Date: 01/10/2020 Generated: 01/19/20 1:43 pm Comments DCP- Discharge Planning Updated by [email or web address]: Donna Bledsoe on 01/19/20 11:[address] Patient will be discharged to inpatient rehab at [facility]. Mom signed the IMM and copy placed in chart. DCP- Discharge Planning Updated by [email or web address]: Donna Bledsoe on 01/15/20 1:[address] Patient Name: SCOTTIE CURRIE Admission Status: ER Accout number: [id number] Admission Date: 01-10-2020 : 1980 Admission Diagnosis:SEPSIS, UNSPECIFIED ORGANISM Attending: CHEYENNE DOMINIQUE Current LOS: 5 Anticipated DC Date: Planned Disposition: Inpatient Rehab Facility Primary Insurance: MEDICARE A & B Discharge Planning Comments: CM met with patient to complete initial dc planning assessment. CM educated patient on the CM role and verbal consent given by patient to complete assessment. Patient lives at home with her mother where her mom is her guardian. At discharge patient plans to return home and feels this is a safe discharge. CM discussed availability of home health, rehab services, and medical equipment. Mom wants her to go to inpatient rehab at [facility]. LEXII signed and placed in chart. The patient has a wheelchair at home, but usually does not have to use it. Mom says she is VERY weak and needs rehab. IMM also served and signed. Patient has been using [facility] with PT & when discharged will want to continue those services at home. Patient denied known discharge needs at this time. CM will continue to follow and will assist as needed with dc plans/needs. Hydraulic Rockbreaker Operator: Donna Bledsoe DCP- Discharge Planning Updated by [email or web address]: Donna Bledsoe on 01/14/20 2:[address] PATIENT'S MOTHER STOPPED ME IN THE DYER AND WANTED TO TALK ABOUT INPATIENT REHAB AT [facility]. A REFERRAL HAS BEEN MADE KIA (SARA) [phone] DCPIA - Discharge Planning Initial Assessment Updated by [email or web address]: Donna Bledsoe on 01/15/20 2:22 pm * Is the patient Alert and Oriented? Yes * How many steps to enter\exit or inside your home? * PCP LESLY * Pharmacy [facility] * Preadmission Environment Home with Family * ADLs Partial Dependent * Partial ADLs (Assistance needed) Ambulation Medication Management * Equipment Wheelchair * List name and contact numbers for known caregivers / representatives who currently or will assist patient after discharge: KIA (MOTHER) [phone] * Verbal permission to speak to the caregivers and representatives has been obtained from the patient. N/A * Community resources currently utilized Home Health * Please name any agencies selected above. CURRENT WITH [facility] * Additional services required to return to the preadmission environment? Yes * Can the patient safely return to the preadmission environment? No * Has this patient been hospitalized within the prior 30 days at any hospital? No Coverage Notice Reviewer: [email or web address] Adolph Bledsoe Notice Issued Date-Time: 01/15/2020 14:20 Notice Type: IM Discharge Notice Notice Delivered To: Family Member Relationship to Patient: Mother Salvage Laborer Name: kia Delivery Method: HAND - Hand Delivered Leonila Days: Prior Verbal Notification: Recipient Understood Notice: Yes Recipient Signature: Yes Med Rec Note Co-signed by Attending: Coverage Notice Comment: imm served Reviewer: [email or web address] Adolph Bledsoe Notice Issued Date-Time: 01/15/2020 14:20 Notice Type: Patient Choice Letter Notice Delivered To: Family Member Relationship to Patient: Mother Salvage Laborer Name: kia Delivery Method: HAND - Hand Delivered Leonila Days: Prior Verbal Notification: Recipient Understood Notice: Yes Recipient Signature: Yes Med Rec Note Co-signed by Attending: Coverage Notice Comment: lexii for inaptient rehab Reviewer: [email or web address] Adolph Bledsoe Notice Issued Date-Time: 01/19/2020 12:35 Notice Type: IM Discharge Notice Notice Delivered To: Family Member Relationship to Patient: Mother Salvage Laborer Name: kia Delivery Method: HAND - Hand Delivered Leonila Days: Prior Verbal Notification: Recipient Understood Notice: Yes Recipient Signature: Yes Med Rec Note Co-signed by Attending: Coverage Notice Comment: IMM explained, signed, copy given and original placed in medical record. Last DP export: 01/15/20 1:43 p Patient Name: SCOTTIE CURRIE Page [phone] at 1244 All edits/amendments must be made on the electronic document DICTATION DATE: 01/19/20 1244 CLEANER CARPET AND UPHOLSTERY: OVIDIO 01/19/20 1244 RPT#: [id number] DC DATE: STATUS: ADM IN [facility] [address] [place] [address] END OF REPORT
[2020-01-19] MEDS ORDERED: PROTONIX40 MG PO (12:56)
--- NOTE | 2020-01-19 17:04 | NUR ---
OT NOTE: PT COMPLETED SUPINE TO SIT WITH MAX A. PT COMPLETED EOB SITTING WITH MOD A TO STABILIZE TRUNK. PT COMPLETED BUE AROM TOLERATED WITHING AVAILABLE ROM. PT IS COOPERATIVE AND FOLLOWS 1 AND 2 STEP DIRECTIONS. PT ANSWERED SIMPLE YES/NO QUESTION RELATED TO PAIN ASSESSEMENT. PT HAD NO C/O PAIN. [phone] THANK YOU,JANIYA DYE
--- NOTE | 2020-01-19 18:00 | NUR ---
CALLED REPORT TO ARVIND BAIRD ON OUR REHAB UNIT. THE ROOM IS DIRTY.
[2020-01-19 18:50] LABS: MAGNESIUM - SERUM 1.7 mg/dL (1.8-2.4)
[2020-01-19 18:54] LABS: POTASSIUM - SERUM 3.6 mmol/L (3.5-5.1)
--- NOTE | 2020-01-20 08:36 | MORECARE ---
CASE MANAGEMENT DISCHARGE SUMMARY PATIENT: SCOTTIE CURRIE UNIT: [id number] ADM DATE: 01/10/20 AGE: 39 : 76 SEX: F ROOM/BED: D.2201 AUTHOR: MAGDALENO SELLERS PHYSICIAN: REFERRING PHYSICIAN: CHEYENNE LI MD DATE OF SERVICE: 01/20/20 Discharge Plan Patient Name: SCOTTIE CURRIE Facility: [facility]:[place] : 1980 Planned Disposition: Inpatient Rehab Facility Anticipated Discharge Date: Discharge Date: 01/19/2020 Expected LOS: 0 Initial Reviewer: [email or web address] Initial Review Date: 01/10/2020 Generated: 01/20/20 9:35 am Comments DCP- Discharge Planning Updated by [email or web address]: Donna Bledsoe on 01/19/20 11:[address] Patient will be discharged to inpatient rehab at [facility]. Mom signed the IMM and copy placed in chart. DCP- Discharge Planning Updated by [email or web address]: Donna Bledsoe on 01/15/20 1:[address] Patient Name: SCOTTIE CURRIE Admission Status: ER Accout number: [id number] Admission Date: 01-10-2020 : 1980 Admission Diagnosis:SEPSIS, UNSPECIFIED ORGANISM Attending: CHEYENNE DOMINIQUE Current LOS: 5 Anticipated DC Date: Planned Disposition: Inpatient Rehab Facility Primary Insurance: MEDICARE A & B Discharge Planning Comments: CM met with patient to complete initial dc planning assessment. CM educated patient on the CM role and verbal consent given by patient to complete assessment. Patient lives at home with her mother where her mom is her guardian. At discharge patient plans to return home and feels this is a safe discharge. CM discussed availability of home health, rehab services, and medical equipment. Mom wants her to go to inpatient rehab at [facility]. LEXII signed and placed in chart. The patient has a wheelchair at home, but usually does not have to use it. Mom says she is VERY weak and needs rehab. IMM also served and signed. Patient has been using [facility] with PT & when discharged will want to continue those services at home. Patient denied known discharge needs at this time. CM will continue to follow and will assist as needed with dc plans/needs. Manager Parking: Donna Bledsoe DCP- Discharge Planning Updated by [id number]: Donna Bledsoe on 01/14/20 2:[address] PATIENT'S MOTHER STOPPED ME IN THE DYER AND WANTED TO TALK ABOUT INPATIENT REHAB AT [facility]. A REFERRAL HAS BEEN MADE KIA (MOM) [phone] DCPIA - Discharge Planning Initial Assessment Updated by [email or web address]: Donna Bledsoe on 01/15/20 2:22 pm * Is the patient Alert and Oriented? Yes * How many steps to enter\exit or inside your home? * PCP [facility] * [facility] * Preadmission Environment Home with Family * ADLs Partial Dependent * Partial ADLs (Assistance needed) Ambulation Medication Management * Equipment Wheelchair * List name and contact numbers for known caregivers / representatives who currently or will assist patient after discharge: KIA (MOTHER) [phone] * Verbal permission to speak to the caregivers and representatives has been obtained from the patient. N/A * Community resources currently utilized Home Health * Please name any agencies selected above. CURRENT WITH [facility] * Additional services required to return to the preadmission environment? Yes * Can the patient safely return to the preadmission environment? No * Has this patient been hospitalized within the prior 30 days at any hospital? No Coverage Notice Reviewer: [id number] Adolph Bledsoe Notice Issued Date-Time: 01/15/2020 14:20 Notice Type: IM Discharge Notice Notice Delivered To: Family Member Relationship to Patient: Mother Automated Equipment Engineer Technician Name: kia Delivery Method: HAND - Hand Delivered Leonila Days: Prior Verbal Notification: Recipient Understood Notice: Yes Recipient Signature: Yes Med Rec Note Co-signed by Attending: Coverage Notice Comment: imm served Reviewer: [email or web address] Adolph Bledsoe Notice Issued Date-Time: 01/15/2020 14:20 Notice Type: Patient Choice Letter Notice Delivered To: Family Member Relationship to Patient: Mother Automated Equipment Engineer Technician Name: kia Delivery Method: HAND - Hand Delivered Leonila Days: Prior Verbal Notification: Recipient Understood Notice: Yes Recipient Signature: Yes Med Rec Note Co-signed by Attending: Coverage Notice Comment: lexii for inaptient rehab Reviewer: [id number] Adolph Bledsoe Notice Issued Date-Time: 01/19/2020 12:35 Notice Type: IM Discharge Notice Notice Delivered To: Family Member Relationship to Patient: Mother Automated Equipment Engineer Technician Name: kia Delivery Method: HAND - Hand Delivered Leonila Days: Prior Verbal Notification: Recipient Understood Notice: Yes Recipient Signature: Yes Med Rec Note Co-signed by Attending: Coverage Notice Comment: IMM explained, signed, copy given and original placed in medical record. Last DP export: 01/19/20 11:44 am Patient Name: SCOTTIE CURRIE Page [id number] at 0836 All edits/amendments must be made on the electronic document DICTATION DATE: 01/20/20834 BAND MACHINE OPERATOR: OVIDIO 01/20/20834 RPT#: [id number] DC DATE:01/19/20 STATUS: DIS IN [facility] [address] [place] [address] END OF REPORT
== END 2020-01-19 19:30 | DRG 871 ==
LOC: D.ER 15:52 → D.ICU 17:36 → D.MS 01-13 15:37
PROVIDERS: Emergency Medicine; Family Medicine; Specialist; ADMIT Family Medicine; ATTEND Family Medicine
PROC: 06HY33Z Insertion of Infusion Device into Lower Vein, Percutaneous Approach (ICD-10-PCS; principal; 2020-01-12 13:38)
DX: A41.9 Sepsis, unspecified organism (principal); E43 Unspecified severe protein-calorie malnutrition; Z68.1 Body mass index [BMI] 19.9 or less, adult; I27.82 Chronic pulmonary embolism; K56.7 Ileus, unspecified; E87.6 Hypokalemia; K31.84 Gastroparesis; R73.9 Hyperglycemia, unspecified; Z79.01 Long term (current) use of anticoagulants; D64.9 Anemia, unspecified; G40.909 Epilepsy, unspecified, not intractable, without status epilepticus; G80.9 Cerebral palsy, unspecified; K59.00 Constipation, unspecified; K52.9 Noninfective gastroenteritis and colitis, unspecified

== ENCOUNTER 2020-01-19 19:30 | Inpatient (IN) | payer MEDICARE ==
[~2020-01-19] VITALS: Ht 165.1 cm; Wt 45.8 kg
[~2020-01-19 19:30] MED LIST changes: +ALBUTEROL2.5 MG/3 M UPD; +ASPIRIN325 MG PO; +CARAFATE1 G PO; +ELIQUIS5 MG PO; +FLAGYL 500500 MG/100 IV; +FLORAJEN3 CAPS460 MG PO; +LISINOPRIL5 MG PO; +PROTONIX IV IV; +REGLAN INJ10 MG/2 ML IV
--- NOTE | 2020-01-19 19:30 | NUR ---
RECEIVED PT TO FLOOR VIA BED ACCOMPANIED BY ACUTE CARE STAFF. SETTLED PT IN ROOM ORIENTED TO ROOM, BATHROOM, AND FUNCTIONS OF REMOTE. PT IS IN STABLE CONDITION AWAITING FAMILY TO ARRIVE TO UNIT. DENIES ANY NEEDS OR PAIN. CALL LIGHT AND WATER WITHIN REACH. FALL PRECAUTIONS IN PLACE. WILL CONTINUE TO MONITOR
[2020-01-19 21:07] VITALS: BP 122/86
[2020-01-19 22:23] VITALS: BP 122/86; BMI 16.8
[2020-01-20 06:45] LABS: BASOPHILS 0.2 % (0-2); EOSINOPHILS 2.2 % (0-7); HEMATOCRIT 32.2 % (36.0-48.0); HEMOGLOBIN 9.9 g/dL (12-16); IMMATURE GRANULOCYTES 0.8 % (0-5); MCHC 30.7 g/dL (31.0-37.0); MCV 84.5 fL (80.0-100.0); MEAN PLATELET VOLUME 8.1 fL (7.4-10.4); MONOCYTES 8.6 % (2-11); NEUTROPHILS 77.2 % (40-80); PLATELET COUNT 234 10x3/uL (130-400); RBC 3.81 10x6/uL (4.00-5.40); RDW 16.9 % (11.5-14.5); WBC 5.9 10x3/uL (4.8-10.8)
[2020-01-20 07:00] LABS: CALC OSMOLALITY 274 mosm/kg (275-300); CALCIUM 7.7 mg/dL (8.5-10.1); CHLORIDE - SERUM 105 mmol/L (98-107); CREATININE - SERUM 0.4 mg/dL (0.6-1.3); GLUCOSE 87 mg/dL (74-106); POTASSIUM - SERUM 3.3 mmol/L (3.5-5.1); SODIUM 140 mmol/L (136-145); eGFR NON AFRICAN AMERICAN > 90 mL/min (90-120)
[2020-01-20 07:05] LABS: UREA NITROGEN 3 mg/dL (7-18)
--- NOTE | 2020-01-20 08:00 | NUR ---
SHIFT ASSMT COMPLETED.BREAKFAST TRAY GIVEN.SITTING UP IN BED.CL IN REACH.HAS HISTORY OF CP.MENTALLY CHALLENGED.
[2020-01-20 08:08] VITALS: BP 120/80
--- NOTE | 2020-01-20 14:10 | NUR ---
PT RETURNED TO BED FROM SHOWER WITH OT AFTER BECOMING DIPHORETIC.FSBS 97.STATED FEELING BETTER AFTER BEING PLACED BACK TO BED.WILL MANTAIN POC.VS 138/89;PULSE 115.PT APPEARED TO HAVE HAD A SEIZURE BY A STARE WITHOUT A RESPONSE THAT LASTED < 60 SECS.ENC.TO EAT A SNACK AND HAD A DRINK.ONLY FEW BITES TAKEN.
[2020-01-20 15:24] VITALS: Ht 165.1 cm; Wt 45.8 kg
--- NOTE | 2020-01-20 19:43 | NUR ---
PT ASLEEP AROUSES EASILY TO VOICE, RESPIRATIONS EVEN AND UNLABORED, NO IMMEDIATE NEEDS NOTED, FALL PRECAUTIONS IN PLACE, FLUIDS/CALL LIGHT WITHIN REACH
[2020-01-20 21:15] VITALS: BP 133/95
--- NOTE | 2020-01-21 07:30 | NUR ---
RECEIVED THIS AM RESTING QUIETLY IN BED.ASSESSMENT COMPLETED.VERY HARD OF HEARING.SHAKES HEAD NO TO MOST QUESTIONS.WILL CONTINUE WITH CURRENT PLAN OF CARE.CL IN EASY REACH,BED IN LOW POSITION.
[2020-01-21 08:01] VITALS: BP 139/87
--- NOTE | 2020-01-21 12:29 | NUR ---
CARE TEAM MEETING: PATIENT IS NEW TO UNIT AND WILL BE RA AT NEXT MEETING. SHE WAS ADMITTED TO REHAB FROM ACUTE FLOOR. HER PCP IS DR. GRACE. SHE IS A CLIENT OF [facility]. DME AT HOME IS A WHEELCHAIR. DISCHARGE PLANS ARE FOR HER TO RETURN TO HER HOME AT [place] WITH HER MOTHER. WILL CONTINUE TO FOLLOW WITH PATIENT.
[2020-01-21 21:07] VITALS: BP 132/87
--- NOTE | 2020-01-22 00:46 | NUR ---
PT ASLEEP, AROUSES EASILY TO VOICE, RESPIRATIONS EVEN AND UNLABORED, NO IMMEDIATE NEEDS NOTED AT THIS TIME, FALL PRECAUTIONS IN PLACE, FLUIDS/CALL LIGHT WITHIN REACH
--- NOTE | 2020-01-22 04:18 | NUR ---
PT ASLEEP, AROUSES EASILY TO VOICE, RESPIRATIONS EVEN AND UNLABORED, NO IMMEDIATE NEEDS NOTED AT THIS TIME, FALL PRECAUTIONS IN PLACE, FLUIDS/CALL LIGHT WITHIN REACH
--- NOTE | 2020-01-22 08:20 | NUR ---
ASSISTED WITH SET UP FOR BREAKFAST, EATING FROSTED FLAKES WITH ASSIST. HOB ELEVATED, NO DISTRESS NOTED
[2020-01-22 08:28] VITALS: BP 132/91
[2020-01-22 09:44] LABS: BASOPHILS 0.2 % (0-2); EOSINOPHILS 0.7 % (0-7); HEMATOCRIT 32.8 % (36.0-48.0); HEMOGLOBIN 10.2 g/dL (12-16); IMMATURE GRANULOCYTES 0.3 % (0-5); LYMPHOCYTES 6.7 % (15-50); MCH 26.2 pg (26.0-34.0); MCHC 31.1 g/dL (31.0-37.0); MCV 84.3 fL (80.0-100.0); MEAN PLATELET VOLUME 8.3 fL (7.4-10.4); MONOCYTES 6.1 % (2-11); RBC 3.89 10x6/uL (4.00-5.40); RDW 16.6 % (11.5-14.5); WBC 8.9 10x3/uL (4.8-10.8)
[2020-01-22 09:45] LABS: PLATELET COUNT 318 10x3/uL (130-400)
[2020-01-22 10:08] LABS: CALC OSMOLALITY 270 mosm/kg (275-300); CALCIUM 7.2 mg/dL (8.5-10.1); CARBON DIOXIDE 31.3 mmol/L (21.0-32.0); CHLORIDE - SERUM 101 mmol/L (98-107); CREATININE - SERUM 0.4 mg/dL (0.6-1.3); GLUCOSE 97 mg/dL (74-106); POTASSIUM - SERUM 3.1 mmol/L (3.5-5.1); SODIUM 137 mmol/L (136-145); UREA NITROGEN 5 mg/dL (7-18); eGFR NON AFRICAN AMERICAN > 90 mL/min (90-120)
--- NOTE | 2020-01-22 11:45 | NUR ---
UP IN THERAPY GYMN IN , PT BECAME CLAMMY, FSBS CHECKED 89, DRANK 2 ORANGE JUICES, BP 131/81, P 110. PULSE OX 87% PLACED ON 2 LPM NASAL CANULA UP TO 96%. RECHECK FSBS 109. PT ALERT AND RESPONSIVE. PLACED ON TELEM ST AT 114. NO DISTRESS NOTED.
--- NOTE | 2020-01-22 12:53 | NUR ---
Nutrition Follow-up: Diet: Regular Pediatric diet (alternative menu) PO intake: ~25% average. Spoke with patient's mom who states that patient likes the foods on the alternative menu better than the traditional Regular menu. Mom is bring foods in from outside as well. She would like for patient to receive vanilla Ensure on meal trays. Last BM: 01/19/20. Wt: 101# (01/20/20) Meds noted: miralax, reglan. Labs noted: K 3.1(L), BUN 5(L), Cr 0.4(L) Recommend continue current diet. Hiram food preferences and allow mom to bring foods in from outside. Will add vanilla Ensure TID. RD following.
--- NOTE | 2020-01-22 14:34 | NUR ---
RESTING WITH MOTHER AT BEDSIDE. VSS. TELEMENTRY ST 116, NO DISTRESS NOTED.
[2020-01-22 19:38] VITALS: BP 144/75
--- NOTE | 2020-01-22 20:00 | NUR ---
PATIENT RECEIVED LAYING IN BED. ASSESSMENT & VITAL SIGNS DONE. NO ADVERSE REACTION TO IV ANTIBIOTICS. BED LOW. ALARM ON. CALL LIGHT WITHIN REACH. WILL CONTINUE TO MONITOR.
--- NOTE | 2020-01-23 04:58 | NUR ---
PATIENT HAD WET BRIEF. PATIENT CLEANED & NEW PADS UNDER. BED LOW. CALL LIGHT WITHIN REACH. WILL CONTINUE TO MONITOR.
[2020-01-23 08:00] VITALS: BP 137/89
--- NOTE | 2020-01-23 08:00 | NUR ---
SHIFT ASSMT COMPLETED
--- NOTE | 2020-01-23 19:29 | NUR ---
PATIENT RECEIVED SITTING UP IN WHEELCHAIR. ASSESSMENT & VITAL SIGNS DONE. NO C/O PAIN OR DISTRESS. CALL LIGHT WITHIN REACH. WILL CONTINUE TO MONITOR.
[2020-01-23 21:11] VITALS: BP 139/87
--- NOTE | 2020-01-24 03:32 | NUR ---
PATIENT HAD WET PADS. PADS REMOVED. PERIAREA & BUTTOCKS CLEANED. NEW PADS UNDER. NO ADVERSE REACTION TO IV ABX. ARMS & LEGS ELEVATED ON PILLOWS. PATIENT TURNED TO LEFT SIDE. OFF OF RIGHT SIDE POSITION. BED LOW. CALL LIGHT WITHIN REACH. WILL CONTINUE TO MONITOR.
--- NOTE | 2020-01-24 08:00 | NUR ---
SHIFT ASSMT COMPLETED.CL IN REACH.
[2020-01-24 08:26] VITALS: BP 143/91
--- NOTE | 2020-01-24 12:00 | NUR ---
EATING LUNCH/MOTHER AT BEDSIDE.
[2020-01-24 13:16] LABS: BASOPHILS 0.3 % (0-2); EOSINOPHILS 1.7 % (0-7); HEMATOCRIT 31.6 % (36.0-48.0); HEMOGLOBIN 9.8 g/dL (12-16); IMMATURE GRANULOCYTES 0.4 % (0-5); LYMPHOCYTES 7.3 % (15-50); MCH 26.3 pg (26.0-34.0); MCV 84.7 fL (80.0-100.0); MEAN PLATELET VOLUME 8.1 fL (7.4-10.4); NEUTROPHILS 85.3 % (40-80); PLATELET COUNT 352 10x3/uL (130-400); RBC 3.73 10x6/uL (4.00-5.40); RDW 16.8 % (11.5-14.5); WBC 10.9 10x3/uL (4.8-10.8)
[2020-01-24 13:33] LABS: CALC OSMOLALITY 276 mosm/kg (275-300); CALCIUM 7.3 mg/dL (8.5-10.1); CARBON DIOXIDE 35.6 mmol/L (21.0-32.0); CHLORIDE - SERUM 103 mmol/L (98-107); CREATININE - SERUM 0.5 mg/dL (0.6-1.3); GLUCOSE 110 mg/dL (74-106); SODIUM 140 mmol/L (136-145); UREA NITROGEN 3 mg/dL (7-18); eGFR NON AFRICAN AMERICAN > 90 mL/min (90-120)
[2020-01-24 13:48] LABS: POTASSIUM - SERUM 2.7 mmol/L (3.5-5.1)
[2020-01-24 20:00] VITALS: BP 128/72
--- NOTE | 2020-01-24 20:00 | NUR ---
PATIENT RECIEVED SITTING UP IN BED. VITAL SIGNS & ASSESSMENT DONE. BED LOW. CALL LIGHT WITHIN REACH. WILL CONTINUE TO MONITOR.
--- NOTE | 2020-01-24 22:00 | NUR ---
PATIENT GIVEN POTASSIUM 40 MEQ DISSOLVED IN VANILLA ICE CREAM. PATIENT IMMEDIATELY VOMITED X 5. PATIENT CLEANED UP. WILL WAIT FOR 0200 LAB RESULTS.
--- NOTE | 2020-01-25 01:47 | NUR ---
PATIENT ON ROUNDS HAD WET PADS. PERIAREA & BUTTOCKS CLEANED. NEW PADS UNDER. LEFT & RIGHT ARMS ELEVATED ON PILLOWS. LEFT HEEL ELEVATED OFF BED. PATIENT ABLE TO ASSIST ROLLING ON SIDES. BED LOW. CALL LIGHT WITHIN REACH. WILL CONTINUE TO MONITOR.
--- NOTE | 2020-01-25 03:44 | NUR ---
POTASSIUM 3.3 PER 0230 REPEAT LAB. PT VOMITTED LAST ORAL DOSE OF POTASSIUM AND REFUSED TO TAKE ORAL POTASSIUM WILL ADMINISTER IV ROUTE LEFT GROIN PICC LINE. PT IS ON TELEMETRY AND WILL MONITOR.
--- NOTE | 2020-01-25 04:31 | NUR ---
80 SR PER Loopster PAN PULLER
--- NOTE | 2020-01-25 04:31 | NUR ---
I have reviewed this patient and I concur with the Shift Assessment completed by the Licensed Practical Nurse today this shift.
[2020-01-25 08:00] VITALS: BP 138/88
--- NOTE | 2020-01-25 20:07 | NUR ---
PT IN BED ASLEEP, AROUSES EASILY TO VOICE, NO NEEDS NOTED, RESPIRATIONS EVEN AND UNLABORED, FALL PRECAUTIONS IN PLACE, FLUIDS/CALL LIGHT WITHIN REACH
[2020-01-25 20:28] VITALS: BP 133/82
--- NOTE | 2020-01-26 00:44 | NUR ---
PT IN BED ASLEEP, AROUSES EASILY TO VOICE, NO NEEDS NOTED, RESPIRATIONS EVEN AND UNLABORED, FALL PRECAUTIONS IN PLACE, FLUIDS/CALL LIGHT WITHIN REACH
--- NOTE | 2020-01-26 06:47 | NUR ---
PT LEFT GROIN PICC LINE FLUSHED, BOTH LINES IN WORKING ORDER, PURPLE SIDE HARD TO FLUSH, BUT FLUSHABLE
[2020-01-26 07:30] VITALS: BP 129/87
--- NOTE | 2020-01-26 07:30 | NUR ---
RESTING QUIETLY IN BED.NO SIGNS OF ACUTE DISTRESS.ASSESSMENT COMPLETED.WILL CONTINUE WITH CURRENT PLAN OF CARE.
--- NOTE | 2020-01-26 14:16 | NUR ---
Nutrition Follow-up: Diet: Regular Pediatric Diet + Ensure TID PO intake: ~23% average x last 3 meals. Spoke with patient's mom who states that she feels that patient's appetite is somewhat improved. States that she has not been getting Ensure on meal trays and wants me to looking into why. She gave some food preferences. Last BM: 01/23/20 x 3. Wt: 101# (01/20/20), no new weight Meds noted: reglan. Labs noted: K 3.8(WNL) Will update food preferences and ensure that patient is getting vanilla ENSURE on meal trays. Recommend continue current diet. Encouraged PO intake. RD following.
--- NOTE | 2020-01-26 19:24 | NUR ---
PT ASLEEP, AROUSES EASILY TO VOICE, NO IMMEDIATE NEEDS NOTED, FALL PRECAUTIONS IN PLACE, RESPIRATIONS EVEN AND UNLABORED, FLUIDS/CALL LIGHT WITHIN REACH
--- NOTE | 2020-01-26 21:30 | NUR ---
PT INCONTINENT OF URINE, ACKNOWLEDGES THAT SHES URINATING, BUT DOES NOT TELL UNTIL SHE IS IN THE PROCESS, PT LEFT GROIN PICC LINE FLUSHED, RED HUB DOES NOT FLUSH
[2020-01-26 22:09] VITALS: BP 134/86
--- NOTE | 2020-01-26 23:59 | NUR ---
PT ASLEEP, AROUSES EASILY TO VOICE, NO IMMEDIATE NEEDS NOTED, FALL PRECAUTIONS IN PLACE, RESPIRATIONS EVEN AND UNLABORED, FLUIDS/CALL LIGHT WITHIN REACH
[2020-01-27 07:47] LABS: CALC OSMOLALITY 265 mosm/kg (275-300); CALCIUM 7.8 mg/dL (8.5-10.1); CARBON DIOXIDE 31.3 mmol/L (21.0-32.0); CHLORIDE - SERUM 98 mmol/L (98-107); CREATININE - SERUM 0.4 mg/dL (0.6-1.3); GLUCOSE 86 mg/dL (74-106); POTASSIUM - SERUM 3.6 mmol/L (3.5-5.1); SODIUM 135 mmol/L (136-145); UREA NITROGEN 4 mg/dL (7-18); eGFR NON AFRICAN AMERICAN > 90 mL/min (90-120)
[2020-01-27 08:01] LABS: BASOPHILS 0.3 % (0-2); EOSINOPHILS 1.5 % (0-7); HEMATOCRIT 31.8 % (36.0-48.0); HEMOGLOBIN 9.8 g/dL (12-16); IMMATURE GRANULOCYTES 0.3 % (0-5); LYMPHOCYTES 9.4 % (15-50); MCH 25.9 pg (26.0-34.0); MCHC 30.8 g/dL (31.0-37.0); MCV 84.1 fL (80.0-100.0); MEAN PLATELET VOLUME 8.2 fL (7.4-10.4); MONOCYTES 7.1 % (2-11); NEUTROPHILS 81.4 % (40-80); RBC 3.78 10x6/uL (4.00-5.40); WBC 7.3 10x3/uL (4.8-10.8)
[2020-01-27 08:03] LABS: PLATELET COUNT 485 10x3/uL (130-400)
--- NOTE | 2020-01-27 09:44 | NUR ---
REPOSITIIONED IN BED. NO C/O PAIN. CL IN REACH.
--- NOTE | 2020-01-27 13:44 | NUR ---
NO CHANGE IN ASSESSMENT. MOTHER AT BS. MOVED TO ROOM 1118B.
[2020-01-27 16:49] VITALS: BP 142/91
--- NOTE | 2020-01-27 20:50 | NUR ---
PT IN BED NO IMMEDIATE NEEDS NOTED, FALL PRECAUTIONS IN PLACE, RESPIRATIONS EASY AND EVEN, BED IN LOWEST POSITION, FLUIDS/CALL LIGHT WITHIN REACH
[2020-01-27 20:53] VITALS: BP 117/83
--- NOTE | 2020-01-27 22:18 | NUR ---
PT HAD EMESIS WITHIN 1 1/2 MIN AFTER GIVING 2100 HR MEDS
[2020-01-28 08:00] VITALS: BP 121/83
[2020-01-28 19:32] VITALS: BP 133/96
[2020-01-29 07:54] VITALS: BP 142/80
[2020-01-29 07:58] LABS: BASOPHILS 0.5 % (0-2); EOSINOPHILS 1.1 % (0-7); HEMATOCRIT 30.4 % (36.0-48.0); HEMOGLOBIN 9.5 g/dL (12-16); IMMATURE GRANULOCYTES 0.2 % (0-5); LYMPHOCYTES 10.6 % (15-50); MCH 26.2 pg (26.0-34.0); MCHC 31.3 g/dL (31.0-37.0); MCV 83.7 fL (80.0-100.0); MEAN PLATELET VOLUME 7.9 fL (7.4-10.4); NEUTROPHILS 78.6 % (40-80); PLATELET COUNT 442 10x3/uL (130-400); RBC 3.63 10x6/uL (4.00-5.40); RDW 16.7 % (11.5-14.5); WBC 6.6 10x3/uL (4.8-10.8)
[2020-01-29 08:25] LABS: CALC OSMOLALITY 274 mosm/kg (275-300); CARBON DIOXIDE 30.5 mmol/L (21.0-32.0); CHLORIDE - SERUM 100 mmol/L (98-107); CREATININE - SERUM 0.4 mg/dL (0.6-1.3); GLUCOSE 71 mg/dL (74-106); SODIUM 139 mmol/L (136-145); UREA NITROGEN 11 mg/dL (7-18); eGFR NON AFRICAN AMERICAN > 90 mL/min (90-120)
[2020-01-29 08:27] LABS: POTASSIUM - SERUM 2.8 mmol/L (3.5-5.1)
--- NOTE | 2020-01-29 11:18 | NUR ---
PATIENT MOTHER ATTENDED THE MEETING , HER QUESTIONS AND CONCERNS WERE ADDRESSED. HER TENATIVE DISCHARGE DATE IS 02/04/20. WILL CONTINUE TO FOLLOW WITH PATIENT.
--- NOTE | 2020-01-29 14:22 | NUR ---
TAMIA JACOB (VASCULAR NURSE) ON FLOOR TRYING TO UNSTOP BOTH LUMENS. DR KENNEY CHANGED PT TO IV MEDS FOR HER STOMACH BUT PICC LINE STOPPED UP. PT STILL HAS N/V WHEN SHE TRIES TO EAT OR DRINK ANYTHING.
--- NOTE | 2020-01-29 18:25 | NUR ---
HAD INCONT STOOL. WAS SOFT AND NON FORMED. PT REPORTS SHE FEELS BETTER. IV POTASSIUM INFUSING. NO N/V IN LAST FEW HOURS.
[2020-01-29 20:00] VITALS: BP 121/84
--- NOTE | 2020-01-29 20:00 | NUR ---
PATIENT RECEIVED SITTING UP IN BED. IV ONGOING. ASSESSMENT & VITAL SIGNS DONE. NO C/O PAIN OR DISTRESS. PATIENT HAD INCONTINENT BM. PATIENT CLEANED. PADS CHANGED. BED LOW. CALL LIGHT WITHIN REACH. WILL CONTINUE TO MONITOR.
--- NOTE | 2020-01-29 20:40 | NUR ---
PATIENT GIVEN REGLAN IN LEFT GROIN PICC PER ORDER BY CHARGE NURSE TAMIA GUTIERREZ RN.
[2020-01-29 22:35] VITALS: BP 135/79
--- NOTE | 2020-01-29 22:38 | NUR ---
PATIENT VITAL SIGNS TAKEN. NO DISTRESS NOTED. PATIENT ALERT. POTASSIUM INFUSION CONTINUES. BED LOW. CALL LIGHT WITHIN REACH. WILL CONTINUE TO MONITOR.
--- NOTE | 2020-01-30 | NUR ---
PATIENT KCL 20MEQ 3RD BAG STARTED PER PROTOCOL. LAB TO BE DRAWN 4 HOURS AFTER INFUSION. PATIENT INSTRUCTED TO CALL IF ANYTHING FEELS DIFFERENT. VITAL SIGNS TAKEN & CHARTED. BED LOW. CALL LIGHT WITHIN REACH. WILL CONTINUE TO MONITOR.
[2020-01-30 00:09] VITALS: BP 123/76
[2020-01-30 01:17] VITALS: BP 134/90
--- NOTE | 2020-01-30 01:19 | NUR ---
VITAL SIGNS TAKEN & CHARTED. PATIENT ALERT & ORIENTED X 4. POTASSIUM CONTINUES IV. LAB TO BE DRAWN IN AM. BED LOW. CALL LIGHT WITHIN REACH. WILL CONTINUE TO MONITOR.
--- NOTE | 2020-01-30 02:02 | NUR ---
PATIENT 3RD BAG OF POTASSIUM FINISHED. LAB TO BE DRAWN AT 0500. PATIENT VITAL SIGNS WITHIN NORMAL LIMITS. PATIENT PICC PORTS OPEN TO FLUSH. PATIENT HAD VOID. PATIENT PERIAREA & BUTTOCKS CLEANED. BUTT PASTE APPLIED. NEW PADS UNDER PATIENT. CALL LIGHT WITHIN REACH. WILL CONTINUE TO MONITOR.
--- NOTE | 2020-01-30 02:04 | NUR ---
I have reviewed this patient and I concur with the Shift Assessment completed by the Licensed Practical Nurse today this shift.
--- NOTE | 2020-01-30 02:17 | NUR ---
PATIENT REGLAN PUSH GIVEN BY CHARGE NURSE TAMIA GUTIERREZ RN PER ORDER.
[2020-01-30 07:00] LABS: BASOPHILS 0.5 % (0-2); EOSINOPHILS 1.5 % (0-7); HEMATOCRIT 29.8 % (36.0-48.0); IMMATURE GRANULOCYTES 0.7 % (0-5); LYMPHOCYTES 11.4 % (15-50); MCH 25.4 pg (26.0-34.0); MCHC 30.2 g/dL (31.0-37.0); MCV 83.9 fL (80.0-100.0); MEAN PLATELET VOLUME 8.2 fL (7.4-10.4); MONOCYTES 10.1 % (2-11); NEUTROPHILS 75.8 % (40-80); RBC 3.55 10x6/uL (4.00-5.40); RDW 16.9 % (11.5-14.5); WBC 6.1 10x3/uL (4.8-10.8)
[2020-01-30 07:09] LABS: PLATELET COUNT 559 10x3/uL (130-400)
[2020-01-30 07:37] LABS: CALC OSMOLALITY 275 mosm/kg (275-300); CALCIUM 7.9 mg/dL (8.5-10.1); CHLORIDE - SERUM 102 mmol/L (98-107); CREATININE - SERUM 0.4 mg/dL (0.6-1.3); GLUCOSE 84 mg/dL (74-106); SODIUM 139 mmol/L (136-145); UREA NITROGEN 10 mg/dL (7-18); eGFR NON AFRICAN AMERICAN > 90 mL/min (90-120)
[2020-01-30 07:48] LABS: POTASSIUM - SERUM 5.3 mmol/L (3.5-5.1)
[2020-01-30 08:00] VITALS: BP 116/71
--- NOTE | 2020-01-30 11:51 | NUR ---
INCONT OF B/B. BOTTOM IS PINK BUT NOT RED OR OPEN. LEFT FEMORAL PICC IN PLACE. SHE ATE FEW BITES OF BREAKFAST AND HAD NO VOMITING. TOTAL CARE PT. FOLLOWS COMMANDS AND IS COOPERATIVE.
--- NOTE | 2020-01-30 17:29 | NUR ---
REFUSED SUPPER. DID DRINK SOME OF HER DR PEPPER. INCONT OF B/B. TURNED FROM SIDE/SIDE. MOTHER VISITED AND BROUGHT PT SOME FOOD FROM HOME WHICH THE PT ATE AND ONLY THREW UP A SMALL AMOUNT.
--- NOTE | 2020-01-30 19:50 | NUR ---
PATIENT RECEIVED LAYING IN BED. ASSESSMENT & VITAL SIGNS DONE. PATIENT HAD INCONTINENT VOID ON PADS. PATIENT CLEANED. NEW PADS UNDER. BED LOW. CALL LIGHT WITHIN REACH. WILL CONTINUE TO MONITOR.
[2020-01-30 20:17] VITALS: BP 149/92
--- NOTE | 2020-01-30 21:15 | NUR ---
PATIENT WANTED REGLAN PER PICC. CHARGE NURSE GAVE THE REGLAN PER PICC LINE. PATIENT REFUSED ORAL MEDICATIONS. CALL LIGHT WITHIN REACH. WILL CONTINUE TO MONITOR.
--- NOTE | 2020-01-31 02:09 | NUR ---
I have reviewed this patient and I concur with the Shift Assessment completed by the Licensed Practical Nurse today this shift.
--- NOTE | 2020-01-31 02:22 | NUR ---
PATIENT EYES CLOSED. RESPIRATIONS 18 & EVEN. BED LOW. CALL LIGHT WITHIN REACH. WILLN CONTINUE TO MONITOR.
[2020-01-31 08:00] VITALS: BP 118/81
--- NOTE | 2020-01-31 17:08 | NUR ---
AWAKE, LAYING IN BED WATCING TV. INCONT OF B/B. TOTAL CARE PT. FOLLOWS COMMANDS AND REQUESTS MOST OF TIME.
[2020-01-31 19:46] VITALS: BP 138/93
--- NOTE | 2020-01-31 20:00 | NUR ---
PATIENT RECEIVE LAYING IN BED WATCHING TV. ASSESSMENT & VITAL SIGNS DONE. PATIENT HAD INCONTINENT URINE. PADS CHANGED. PERIAREA & BUTTOCKS CLEANED BUTT PASTE APPLIED. BED LOW. CALL LIGHT WITHIN REACH. WILL CONTINUE TO MONITOR.
--- NOTE | 2020-02-01 03:25 | NUR ---
I have reviewed this patient and I concur with the Shift Assessment completed by the Licensed Practical Nurse today this shift.
[2020-02-01 07:05] LABS: BASOPHILS 0.4 % (0-2); EOSINOPHILS 2.7 % (0-7); HEMATOCRIT 32.2 % (36.0-48.0); HEMOGLOBIN 9.9 g/dL (12-16); IMMATURE GRANULOCYTES 0.2 % (0-5); LYMPHOCYTES 11.5 % (15-50); MCH 26.3 pg (26.0-34.0); MCHC 30.7 g/dL (31.0-37.0); MCV 85.6 fL (80.0-100.0); MONOCYTES 9.4 % (2-11); NEUTROPHILS 75.8 % (40-80); RBC 3.76 10x6/uL (4.00-5.40); RDW 16.8 % (11.5-14.5); WBC 5.2 10x3/uL (4.8-10.8)
[2020-02-01 07:16] LABS: PLATELET COUNT 443 10x3/uL (130-400)
[2020-02-01 07:22] LABS: CALC OSMOLALITY 273 mosm/kg (275-300); CHLORIDE - SERUM 98 mmol/L (98-107); CREATININE - SERUM 0.5 mg/dL (0.6-1.3); GLUCOSE 83 mg/dL (74-106); POTASSIUM - SERUM 3.7 mmol/L (3.5-5.1); SODIUM 138 mmol/L (136-145); UREA NITROGEN 9 mg/dL (7-18); eGFR NON AFRICAN AMERICAN > 90 mL/min (90-120)
[2020-02-01 08:12] VITALS: BP 127/84
--- NOTE | 2020-02-01 08:20 | NUR ---
ALERT ADN RESTING IN BED. NO DISTRESS NOTED.
--- NOTE | 2020-02-01 12:35 | NUR ---
FAMILY AT BS. NO C/O PAIN. EATING LUNCH. CL IN REACH.
--- NOTE | 2020-02-01 16:43 | NUR ---
BED BATH GIVEN.
--- NOTE | 2020-02-01 17:51 | NUR ---
NO CHANGE IN ASSESSMENT. EATING DINNER. NO DISTRESS NOTED. CL IN REACH.
[2020-02-01 20:00] VITALS: BP 98/61
--- NOTE | 2020-02-01 20:00 | NUR ---
ASSESSMENT PER FLOW SHEET, VS OBTAINED, PICC LINE TO LEFT GROIN INTACT WITH NO REDNESS OR EDEMA INFUSING ZOFRAN VIA PUMP AT 4ML/HR, PT DENIES NAUSEA OR PAIN, PT INCONTINENT BUT DRY AT THIS TIME, FALL PRECAUTIONS IN PLACE
--- NOTE | 2020-02-01 21:44 | NUR ---
PT RESTING WITH EYES CLOSED, AROUSES TO SOFT VERBAL STIMULATION, ADM 2100 MEDS PER MD ORDERS, SEE EMAR, REFUSE CARAFATE AND DID NOT ADM REGLAN DUE TO ADM BEFORE MEALS AND PT HAS POOR APPETITE AT THIS TIME, REFUSES SNACK, AND ALSO, DID NOT WANT ANYTHING ON MENU WHEN FILLING IT OUT FOR PT, DENIES NEEDS OR PAIN AT THIS TIME, FALL PRECAUTIONS IN PLACE
--- NOTE | 2020-02-01 22:45 | NUR ---
PT RESTING WITH EYES CLOSED, AROUSES TO SOFT VERBAL STIMULATION, PT CONTINUES TO BE DRY, PT REPOSITIONED TO BACK, DENIES NEEDS OR PAIN, FALL PRECAUTIONS IN PLACE
--- NOTE | 2020-02-02 | NUR ---
PT RESTING WITH EYES CLOSED, NO DISTRESS NOTED, RESP QUIET, LEFT UNDISTURBED AT THIS TIME, FALL PRECAUTIONS IN PLACE
--- NOTE | 2020-02-02 02:40 | NUR ---
PT RESTING WITH EYES CLOSED, RESP QUIET, NO DISTRESS NOTED, LEFT UNDISTURBED AT THIS TIME, FALL PRECAUTIONS IN PLACE
--- NOTE | 2020-02-02 04:26 | NUR ---
PT RESTING WITH EYES CLOSED, AROUSES TO SOFT VERBAL STIMULATION, ADM REGLAN PO PER MD ORDERS, SEE EMAR, PT CLEANED UP WITH WET WIPES, WHITE CHUX CHANGED, PT DENIES PAIN OR FURTHER NEEDS, FALL PRECAUTIONS IN PLACE
--- NOTE | 2020-02-02 05:40 | NUR ---
PT RESTING WITH EYES CLOSED, AROUSES TO SOFT VERBAL STIMULATION, ADM 0600 MEDS PER MD ORDERS, SEE EMAR, PT DENIES NEEDS OR PAIN, FALL PRECAUTIONS IN PLACE
--- NOTE | 2020-02-02 07:30 | NUR ---
AROUSES EASILY.ASSESSMENT COMPLETED.IMPROVEMENT IN STRENGHT AND MOVEMENT IN RT ARM AND LEG SINCE THIS NURSE LAST ASSESSED JAN.25.RT SIDE STILL VERY WEAK.NO FINE MOTOR MOVEMENT IN RT HAND.WILL CONTINUE WITH CURRENT PLAN OF CARE.CL IN EASY REACH,BED IN LOW POSITION.BED ALARM ON AND WORKIING.
[2020-02-02 08:00] VITALS: BP 121/81
--- NOTE | 2020-02-02 13:31 | NUR ---
NUTRITION FOLLOW UP: COMMENTS: Patient recieving patient care during visit this am. Patient has been experiencing poor po intake. DIET: Regular Pediatric Diet SUPPLEMENT: Vanilla Ensure with meals PO INTAKE: 29% avg for last 8 meals WEIGHT: 101 lbs on 01/19. No new weight. BM: BM x 1 on 01/29 with soft consistency SIG MEDS: Reglan, Folic Acid, Zofran, KCl SIG LABS: Creatinine-0.5(L) GOALS/Interventions: -Continue current diet and Ensure -Encourage po intake -Assitance with meals -Obtain new weight -Recommend appetite stimulant if po intake continues to be < 50% avg for meals RD to continue to follow and monitor patient DHS
[2020-02-02 19:26] VITALS: BP 108/69
--- NOTE | 2020-02-02 19:46 | NUR ---
RECIEVED UP IN BED WITH EYES CLOSED. EASILY AROUSES WITH VERBAL STIMULI. SPEECH IS GARBLED. PICC LINE TO LT GROIN. RT SIDED WEAKNESS. TOTAL CARE. NO S/S OF DISTRESS OBSERVED.
[2020-02-03 08:14] LABS: BASOPHILS 0.4 % (0-2); EOSINOPHILS 2.1 % (0-7); HEMATOCRIT 30.3 % (36.0-48.0); HEMOGLOBIN 9.1 g/dL (12-16); IMMATURE GRANULOCYTES 0.2 % (0-5); MCH 25.6 pg (26.0-34.0); MCV 85.4 fL (80.0-100.0); MEAN PLATELET VOLUME 8.1 fL (7.4-10.4); MONOCYTES 10.3 % (2-11); PLATELET COUNT 447 10x3/uL (130-400); RBC 3.55 10x6/uL (4.00-5.40); RDW 16.9 % (11.5-14.5); WBC 5.4 10x3/uL (4.8-10.8)
[2020-02-03 08:27] VITALS: BP 130/83
[2020-02-03 08:30] LABS: CALC OSMOLALITY 265 mosm/kg (275-300); CALCIUM 8.4 mg/dL (8.5-10.1); CARBON DIOXIDE 32.1 mmol/L (21.0-32.0); CHLORIDE - SERUM 99 mmol/L (98-107); CREATININE - SERUM 0.5 mg/dL (0.6-1.3); GLUCOSE 86 mg/dL (74-106); POTASSIUM - SERUM 3.6 mmol/L (3.5-5.1); SODIUM 134 mmol/L (136-145); UREA NITROGEN 10 mg/dL (7-18); eGFR NON AFRICAN AMERICAN > 90 mL/min (90-120)
--- NOTE | 2020-02-03 10:53 | NUR ---
THERAPY HAS PT IN THE SHOWER AT PRESENT. SHE IS A MAX X2, TOTAL CARE PT. LEFT FEMORAL PICC IN PLACE. PT GETS ZOFRAN IV DUE TO SEVERE N/V. SHE IS INCONT OF B/B.
[2020-02-03] MEDS ORDERED: REGLAN5 MG PO (12:45)
--- NOTE | 2020-02-03 12:46 | RHP ---
PATIENT: SCOTTIE CURRIE MEDICAL RECORD: [id number] ACCOUNT: [id number] LOCATION:[facility] [id number] : 76 ADMISSION DATE: 01/19/20 REHABILITATION HISTORY AND PHYSICAL EXAMINATION POST ADMISSION PHYSICIAN EXAMINATION ADMITTING DIAGNOSIS: Gastroparesis and debility. HISTORY OF PRESENT ILLNESS: The patient was brought into the hospital via EMS due to unresponsiveness while on the commode, having diarrhea. The diarrhea started the day of admission. The patient has CT and has quite an extensive medical history with recent admissions here in June. Fluids were started. The patient was pale and cyanotic. Her blood pressure was quite low with an elevated heart rate. She is followed by Dr. Marcelo. She was admitted to [facility]. The patient has got a history of CP, seizure disorder, hearing deficits, history of pleural effusion, PE, she is on chronic anticoagulants, gastroparesis. She had a G-tube. She has had paracentesis in the past. She is accompanied by her mother who is her primary caregiver. The patient presented to the ED for severe hypotension. The patient has been eating 2-3 meals daily prior to this but has continued to lose weight approximately 40 pounds since June. She is being been followed by hem/onc Dr. Low and has a concern there for this weight loss. The patient was admitted for sepsis, hypokalemia, enteritis, severe protein malnutrition, gastroparesis, chronic anticoagulation and hyperglycemia, normocytic anemia. The patient spent 4 days in the ICU. Stool studies were ordered. A CT showed colitis. GI was consulted along with vascular nurse. She remained in ICU and was on pressors during her stay. She had some problems with oropharyngeal dysphagia. She progressed to a mechanical soft diabetic diet. The patient has been on pressors since 01/12. Her H&H have improved since transfusion. She is on some IV meds at this time that need to be adjusted. She is currently mod to max assist for ADLs, max assist for ambulation. She will be monitored closely for lab values. She has got acute pain, decreased activity tolerance. She has got problems with her cognition, decreased strength, proximal muscle weakness, decreased range of motion. She is a high fall risk. These were all barriers to her discharge home at this time. COMORBIDITIES: Include a decrease in physical functioning, viral syndrome, abdominal pain, enterocolitis, cerebral palsy, hypokalemia, chronic anticoagulation, small bowel obstruction, hearing deficits, history of PE. PAST MEDICAL HISTORY: Significant for hearing deficits. She got a history of cerebral palsy, weight loss, gastroparesis, iron deficient anemia, severe deconditioning. PAST SURGICAL HISTORY: Includes SECOND TIME WORKER shunt placement, G-tube placement. ALLERGIES: No known drug allergies. CURRENT MEDICATIONS: Include Floranex daily. She is on lisinopril 5 mg daily, folic acid daily, aspirin 325 daily, Protonix 40 mg b.i.d. She is on metronidazole 500 mg q.8 hours, Carafate 1 g q.a.c. and at bedtime, MiraLax 17 g in 8 ounces of water daily. She is on Trileptal 600 mg t.i.d., Reglan 5 mg q.6 hours, BuSpar 15 mg b.i.d., Eliquis 5 mg b.i.d. She is on an electrolyte protocol at this time. She is on Zofran p.r.n. nausea and vomiting, Ventolin updrafts as needed. HISTORY AND PHYSICAL [id number] SCOTTIE CURRIE HABITS: No alcohol or tobacco use. FAMILY HISTORY: Noncontributory. SOCIAL HISTORY: The patient hopes to return back home with her mother. REVIEW OF SYSTEMS: GENERAL: Does complain of weakness and fatigue. HEENT: Denies cold, cough, or congestion. CARDIOVASCULAR: Denies any chest pain. PHYSICAL EXAMINATION: VITAL SIGNS: Stable, afebrile. GENERAL: A thin female, in no acute distress, alert upon exam. HEENT: Normocephalic and atraumatic. Mucosa moist. NECK: Supple. No lymphadenopathy. LUNGS: Clear in upper akins. No wheeze or rales. HEART: Regular rate and rhythm. No murmurs, rubs, or gallops. ABDOMEN: Soft, benign. She does have tubing in place. EXTREMITIES: No clubbing, cyanosis, or edema. NEUROLOGIC: She does have changes consistent with CP. LABORATORY DATA: Her white count is 5.9, H&H 9.9 and 32.2, platelet count is 234. Sodium 140, potassium 3.3, BUN and creatinine of 3 and 0.4, and blood sugar is noted to be 87. ASSESSMENT: A 39-year-old female patient admitted to rehab with a working diagnosis of gastroparesis. The patient has potential to make improvement. We instituted the following multiple disciplinary therapies including, but not limited to physical, occupational, respiratory, speech, nutritional services, prosthetics, and orthotics. Given her complex medical condition and risks for more complications, rehabilitation services cannot be provided at a low level of care such as residential facility. PLAN: 1. Admit to [facility] for inpatient therapy to include the following disciplines: A. Physical therapy to improve gait, all transfer skills, and bed mobility to a modified independent level. B. Occupational therapy to improve activities of daily living. C. Case management to help with discharge planning and placement options. D. Nutrition to assist with nutritional needs. E. Rehabilitation nursing to assist in monitoring the patient's underlying medical conditions and to assist with any type of bowel or bladder management. 2. The patient's current medication and medical care will be continued. 3. The patient will be placed on standard fall precautions. 4. The patient's estimated length of stay is approximately 7-10 days. 5. We will discuss this patient during care team staff meeting this week and I will go ahead and adjust medications where appropriate and we will discuss with care team today at noon and keep her mother up to date on her care. NTS:[id number] Voice Confirmation ID: [id number] DOCUMENT ID: [id number] YANCI notes whether there has been none or any medical/functional HISTORY AND PHYSICAL [id number] SCOTTIE CURRIE change since admission: - No change since preadmission screen. YANCI attests patient continues to be appropriate for IRF: - Continues to be appropriate. MAGALYS KENNEY MD at 1246 CC: [id number] DICTATION DATE: 01/20/20 0756 ASSEMBLY LINE MACHINE OPERATOR: 01/20/20 2249 ADM IN [facility] [address] [id number]
--- NOTE | 2020-02-03 16:09 | NUR ---
CARE TEAM MEETING: MOTHER ATTENDED THE MEETING. PATIENT HAS BEEN ACCE[facility] AND WILL DISCHARGE THERE IN AM. WILL CONTINUE TO FOLLOW WITH PATIENT.
[2020-02-03 19:06] VITALS: BP 125/81
--- NOTE | 2020-02-03 19:29 | NUR ---
RECIEVED LAYING IN BED WITH EYES CLOSED. EASILY AROUSES WITH VERBAL STIMULI. ORIENTED TO PERSON ONLY. DOES TRY TO VERBALLY COMMUNICATE. ABLE TO UNDERSTAND SOME WORDS. PICC LINE TO RT GROIN. INCONT OF B/B. REQUIRES TOTAL CARE. NO S/S OF DISTRESS OBSERVED.
[2020-02-04 08:00] VITALS: BP 129/92
--- NOTE | 2020-02-04 10:30 | NUR ---
SITTING UP IN BED WATCHING TV. SHE MAKES GOOD EYE CONTACT AND FOLLOWS COMMANDS. NO SKIN BREAKDOWN NOTED. SPEECH IS GARBLED. SHE HAS POOR APPETITE AND SOME N/V AT TIMES.
--- NOTE | 2020-02-04 10:49 | NUR ---
RESTING QUIETLY IN BED. REFUSED BREAKFAST THIS MORNING. PICC LINE D/C'D ALREADY. IS SCHEDULE TO DC TODAY
--- NOTE | 2020-02-04 15:02 | NUR ---
PATIENT DISCHARGING TO [facility] TODAY PER FACILITY VAN. NO HOME HEALTH OR DME NEEDED AT THIS TIME. AN APPOINTMENT WITH DR. GRACE WILL BE MADE AT TIME OF DISCHARGE FROM THE FACILITY. GERALDO SIGNED, IMM SERVED AND EXPLAINED TO PATIENT MOTHER, ONE GIVEN TO MOTHER AND ONE FILED IN CHART. DSICHARGE INSTRUCTIONS HAVE BEEN FAXED TO PCP AND TO SNF AND REVIEWED WITH PATIENT MOTHER [facility].
== END 2020-02-04 15:30 | DRG 391 ==
LOC: D.REHAB 19:30
PROVIDERS: ADMIT Emergency Medicine; ATTEND Emergency Medicine
DX: K31.84 Gastroparesis (principal); E43 Unspecified severe protein-calorie malnutrition; I26.99 Other pulmonary embolism without acute cor pulmonale; K56.609 Unspecified intestinal obstruction, unspecified as to partial versus complete obstruction; N39.0 Urinary tract infection, site not specified; J90 Pleural effusion, not elsewhere classified; R53.81 Other malaise; B34.9 Viral infection, unspecified; R10.9 Unspecified abdominal pain; K52.9 Noninfective gastroenteritis and colitis, unspecified; G80.9 Cerebral palsy, unspecified; E87.6 Hypokalemia; Z79.01 Long term (current) use of anticoagulants; Z86.711 Personal history of pulmonary embolism; R11.10 Vomiting, unspecified; R19.7 Diarrhea, unspecified; G40.909 Epilepsy, unspecified, not intractable, without status epilepticus; D64.9 Anemia, unspecified; R73.9 Hyperglycemia, unspecified; R01.1 Cardiac murmur, unspecified

== ENCOUNTER 2020-03-02 18:00 | Emergency (ER) | payer MEDICARE ==
[~2020-03-02] VITALS: Ht 165.1 cm; Wt 46.0 kg
[2020-03-02 18:16] VITALS: Ht 165.1 cm; Wt 46.0 kg
[2020-03-02 19:27] LABS: BASOPHILS 0.1 % (0-2); EOSINOPHILS 0.6 % (0-7); HEMATOCRIT 27.4 % (36.0-48.0); HEMOGLOBIN 8.3 g/dL (12-16); IMMATURE GRANULOCYTES 0.1 % (0-5); LYMPHOCYTES 12.7 % (15-50); MCH 25.4 pg (26.0-34.0); MCHC 30.3 g/dL (31.0-37.0); MCV 83.8 fL (80.0-100.0); MEAN PLATELET VOLUME 8.1 fL (7.4-10.4); MONOCYTES 7.8 % (2-11); NEUTROPHILS 78.7 % (40-80); PLATELET COUNT 426 10x3/uL (130-400); RBC 3.27 10x6/uL (4.00-5.40); RDW 15.3 % (11.5-14.5); WBC 7.1 10x3/uL (4.8-10.8)
[2020-03-02 19:41] LABS: BILIRUBIN NEGATIVE (NEGATIVE); KETONE NEGATIVE (NEGATIVE); NITRITE NEGATIVE (NEGATIVE); UROBILINOGEN NORMAL mg/dL (< 2)
[2020-03-02 19:44] LABS: BACTERIA MANY /HPF (NONE SEEN); EPITHELIAL CELLS 0-5 /hpf (0-5)
[2020-03-02 20:32] LABS: CALC OSMOLALITY 271 mosm/kg (275-300); CALCIUM 8.2 mg/dL (8.5-10.1); CARBON DIOXIDE 29.6 mmol/L (21.0-32.0); CHLORIDE - SERUM 99 mmol/L (98-107); CREATININE - SERUM 0.4 mg/dL (0.6-1.3); GLUCOSE 100 mg/dL (74-106); POTASSIUM - SERUM 3.9 mmol/L (3.5-5.1); SODIUM 136 mmol/L (136-145); UREA NITROGEN 12 mg/dL (7-18); eGFR NON AFRICAN AMERICAN > 90 mL/min (90-120)
[2020-03-02 20:39] LABS: ALBUMIN 1.7 g/dL (3.4-5.0); ALKALINE PHOSPHATASE 112 U/L (30-120); ALT (SGPT) 8 U/L (10-68); AMYLASE - SERUM 21 U/L (25-115); BILIRUBIN - TOTAL 0.19 mg/dL (0.2-1.3); LIPASE 60 U/L (73-393); PROTEIN - SERUM 7.7 g/dL (6.4-8.2)
[2020-03-02 20:40] LABS: TROPONIN-I < 0.017 ng/mL (0.000-0.060)
[2020-03-02] MEDS ORDERED: MACROBID100 MG PO (21:44)
[2020-03-02] MEDS ORDERED: CHRONULAC30 ML PO (21:44)
[2020-03-02 21:54] VITALS: BP 126/84
== END 2020-03-02 21:54 | disposition home or self-care (01) ==
LOC: D.ER 18:00
PROVIDERS: Family Medicine
DX: N39.0 Urinary tract infection, site not specified (principal); G80.9 Cerebral palsy, unspecified; K59.00 Constipation, unspecified

== ENCOUNTER 2020-03-11 16:34 | Inpatient (IN) | payer MEDICARE ==
[~2020-03-11] VITALS: Ht 165.1 cm; Wt 40.3 kg
[~2020-03-11 16:34] MED LIST changes: +CHRONULAC30 ML PO
[2020-03-11 17:12] LABS: BASOPHILS 0.3 % (0-2); EOSINOPHILS 0.6 % (0-7); HEMATOCRIT 29.2 % (36.0-48.0); HEMOGLOBIN 8.7 g/dL (12-16); IMMATURE GRANULOCYTES 0.1 % (0-5); LYMPHOCYTES 12.2 % (15-50); MCHC 29.8 g/dL (31.0-37.0); MCV 83.9 fL (80.0-100.0); MEAN PLATELET VOLUME 7.8 fL (7.4-10.4); NEUTROPHILS 80.8 % (40-80); PLATELET COUNT 466 10x3/uL (130-400); RBC 3.48 10x6/uL (4.00-5.40); RDW 15.3 % (11.5-14.5)
[2020-03-11 17:37] LABS: CALC OSMOLALITY 265 mosm/kg (275-300); CALCIUM 8.4 mg/dL (8.5-10.1); CHLORIDE - SERUM 100 mmol/L (98-107); CREATININE - SERUM 0.5 mg/dL (0.6-1.3); GLUCOSE 86 mg/dL (74-106); POTASSIUM - SERUM 3.9 mmol/L (3.5-5.1); SODIUM 134 mmol/L (136-145); UREA NITROGEN 10 mg/dL (7-18); eGFR NON AFRICAN AMERICAN > 90 mL/min (90-120)
[2020-03-11 17:47] LABS: ALBUMIN 1.8 g/dL (3.4-5.0); ALKALINE PHOSPHATASE 110 U/L (30-120); ALT (SGPT) 5 U/L (10-68); BILIRUBIN - TOTAL 0.16 mg/dL (0.2-1.3)
[2020-03-11 18:40] VITALS: BP 114/77
--- NOTE | 2020-03-11 19:00 | NUR ---
URINE SPEC COLLECTED VIA CLEAN CATCH, URINE DARK JHOAN/CLOUDY, LABELED AT BS AND SENT TO LAB
--- NOTE | 2020-03-11 19:12 | NUR ---
REPORT TO OLI ELLIS
[2020-03-11 19:38] LABS: BILIRUBIN NEGATIVE (NEGATIVE); KETONE NEGATIVE (NEGATIVE); NITRITE NEGATIVE (NEGATIVE); UROBILINOGEN NORMAL mg/dL (< 2)
[2020-03-11 19:46] VITALS: BP 123/75
[2020-03-11 20:25] VITALS: BP 126/76
[2020-03-11 21:46] LABS: % SATURATION 24 % (15-55); IRON 23 ug/dl (35-150); TOTAL IRON BIND CAPACITY 93 ug/dl (260-445); UNSAT IRON BIND CAPACITY 70 ug/dl (150-375)
--- NOTE | 2020-03-11 22:20 | NUR ---
PATEINT ARRIVED VIA BED ACCOPMANIED BY ER STAFF AND MOTHER. NO S/S OF ACUTE DISTRESS. NO C/O AT THIS TIME. PATIENT HAS LEFT WRIST IV, SALINE LOC. IV IS PATENT WITHOUT REDENSS, SWELLING, OR TENDERNESS. PATEINT IS WEAK, AND THIN. PATIENT IS INCONTINENT OF BOWEL AND BLADDER. CALL LIGHT WITHIN REACH. WILL CONTINUE TO MONITOR.
[2020-03-12] VITALS (8 sets, daily range): BP systolic 109–136; BP diastolic 74–88; BMI 14.9
--- NOTE | 2020-03-12 20:00 | NUR ---
ALERT RESTING IN BED, DENIES PAIN OR NEEDS AT THIS TIME, SEE SHIFT ASSESSMENT CALL LIGHT IN REACH
[2020-03-13 04:00] VITALS: BP 115/82
[2020-03-13 06:42] LABS: BASOPHILS 0.3 % (0-2); EOSINOPHILS 1.2 % (0-7); HEMATOCRIT 27.8 % (36.0-48.0); HEMOGLOBIN 8.2 g/dL (12-16); IMMATURE GRANULOCYTES 0.2 % (0-5); LYMPHOCYTES 12.5 % (15-50); MCH 24.8 pg (26.0-34.0); MCHC 29.5 g/dL (31.0-37.0); MCV 84.2 fL (80.0-100.0); MEAN PLATELET VOLUME 7.8 fL (7.4-10.4); MONOCYTES 6.3 % (2-11); NEUTROPHILS 79.5 % (40-80); PLATELET COUNT 492 10x3/uL (130-400); RDW 15.2 % (11.5-14.5); WBC 5.8 10x3/uL (4.8-10.8)
[2020-03-13 06:43] LABS: CALCIUM 8.2 mg/dL (8.5-10.1); CARBON DIOXIDE 27.8 mmol/L (21.0-32.0); CHLORIDE - SERUM 101 mmol/L (98-107); CREATININE - SERUM 0.5 mg/dL (0.6-1.3); MAGNESIUM - SERUM 1.9 mg/dL (1.8-2.4); PHOSPHOROUS 3.6 mg/dL (2.5-4.9); SODIUM 135 mmol/L (136-145); eGFR NON AFRICAN AMERICAN > 90 mL/min (90-120)
[2020-03-13 06:46] LABS: CALC OSMOLALITY 265 mosm/kg (275-300); GLUCOSE 60 mg/dL (74-106); UREA NITROGEN 6 mg/dL (7-18)
[2020-03-13 08:00] VITALS: BP 124/62
[2020-03-13 12:16] VITALS: BP 117/77
--- NOTE | 2020-03-13 14:58 | NUR ---
PT RESTING IN BED. NO SIGNS OF DISTRESS
[2020-03-13 15:00] VITALS: BP 118/79
--- NOTE | 2020-03-13 16:07 | MORECARE ---
CASE MANAGEMENT DISCHARGE SUMMARY PATIENT: SCOTTIE CURRIE UNIT: [id number] ADM DATE: 03/12/20 AGE: 40 : 78 SEX: F ROOM/BED: D.2202 AUTHOR: MAGDALENO SELLERS PHYSICIAN: REFERRING PHYSICIAN: SEBLE TINOCO MD DATE OF SERVICE: 03/13/20 Discharge Plan Patient Name: SCOTTIE CURRIE Facility: [facility]:[place] : 1980 Planned Disposition: Home with Home Health Anticipated Discharge Date: 03/13/20 Discharge Date: Expected LOS: 1 Initial Reviewer: [email or web address] Initial Review Date: 03/13/2020 Generated: 03/13/20 5:07 pm Comments DCP- Discharge Planning Updated by [email or web address]: Loni Park on 03/12/20 8:[address] Met with patient. She states she is feeling better. WILL given, explained. signed, given, copy placed in MR External Providers External Provider: [facility] Next Contact Date: Service Request Date: Service Type: Resolution: Reviewer: Comments: Coverage Notice Reviewer: [id number] - Loni Park Notice Issued Date-Time: 03/12/2020 9:25 Notice Type: Medicare Outpatient Observation Notice Notice Delivered To: Patient Relationship to Patient: Self Gifted Program Teacher Name: Delivery Method: HAND - Hand Delivered Leonila Days: Prior Verbal Notification: Recipient Understood Notice: Yes Recipient Signature: Yes Med Rec Note Co-signed by Attending: Coverage Notice Comment: WILL explained, signed, given, copy placed in MR Patient Name: SCOTTIE CURRIE Page [id number] at 1607 All edits/amendments must be made on the electronic document DICTATION DATE: 03/13/20 1607 DOOR MACHINE OPERATOR: OVIDIO 03/13/20 1607 RPT#: [id number] DC DATE: STATUS: ADM IN [facility] [address] [place] [address] END OF REPORT
--- NOTE | 2020-03-13 16:14 | MORECARE ---
CASE MANAGEMENT DISCHARGE SUMMARY PATIENT: SCOTTIE CURRIE UNIT: [id number] ADM DATE: 03/12/20 AGE: 40 : 78 SEX: F ROOM/BED: D.2202 AUTHOR: MAGDALENO SELLERS PHYSICIAN: REFERRING PHYSICIAN: SEBLE TINOCO MD DATE OF SERVICE: 03/13/20 Discharge Plan Patient Name: SCOTTIE CURRIE Facility: [facility]:[place] : 1980 Planned Disposition: Home with Home Health Anticipated Discharge Date: 03/13/20 Discharge Date: Expected LOS: 1 Initial Reviewer: [email or web address] Initial Review Date: 03/13/2020 Generated: 03/13/20 5:14 pm DCP- Discharge Planning Updated by [email or web address]: Vic Fuentes on 03/13/20 3:[address] Patient Name: SCOTTIE CURRIE Admission Status: ER Accout number: [id number] Admission Date: 03-12-2020 : 1980 Admission Diagnosis: Attending: ALEJANDRINA, Current LOS: 1 Anticipated DC Date: 03-13-2020 Planned Disposition: Home with Home Health Primary Insurance: MEDICARE A & B Discharge Planning Comments: CM met with patient (disabled) and mother Jacki Kumar ([phone]) to complete initial dc planning assessment. CM educated patient and mother on the CM role and verbal consent was given by mother to complete assessment. CM verified patient's address, phone number, and emergency contact phone numbers. Patient lives at home with her family. At discharge patient plans to return and feels this is a safe discharge. The patient has a ramp to navigate to enter the home and it is safe. Patient fills her medications at [facility] on [address]. CM discussed availability of home health, rehab services, and medical equipment. Mother states that the patient is already receiving HHS with [facility] and has DME items of a wheelchair, walker, BSC, and cane. Clinical information faxed to [facility] at ([phone]). Spoke with Valencia at [facility] at Home with notification of DC. Mother of patient declined SNF, IPR, and DME. No other known discharge needs were discussed at this time. Transportation provider at discharge will be with her mother Jacki. CM will continue to follow and will assist as needed with dc plans/needs. Bench Loom Weaver: Vic Fuentes DCP- Discharge Planning Updated by [email or web address]: Loni Park on 03/12/20 8:[address] Met with patient. She states she is feeling better. WILL given, explained. signed, given, copy placed in MR DCPIA - Discharge Planning Initial Assessment Updated by [email or web address]: Vic Fuentes on 03/13/20 4:08 pm * Is the patient Alert and Oriented? No * How many steps to enter\exit or inside your home? RAMP * PCP Dr. Ruben Marcelo * Pharmacy [facility] on [address] * Preadmission Environment Home with Family * ADLs Partial Dependent * Partial ADLs (Assistance needed) Ambulation Bathing Dressing Eating Medication Management Toileting Transfers * Equipment Bedside Commode Cane Walker Wheelchair * Other Equipment n/a * List name and contact numbers for known caregivers / representatives who currently or will assist patient after discharge: mother Jacki Kumar ([phone]) * Verbal permission to speak to the caregivers and representatives has been obtained from the patient. Yes * Community resources currently utilized Home Health * Please name any agencies selected above. [facility] * Additional services required to return to the preadmission environment? Yes * Can the patient safely return to the preadmission environment? Yes * Has this patient been hospitalized within the prior 30 days at any hospital? No Coverage Notice Reviewer: [id number] - Loni Park Notice Issued Date-Time: 03/12/2020 9:25 Notice Type: Medicare Outpatient Observation Notice Notice Delivered To: Patient Relationship to Patient: Self Mint Machine Operator Name: Delivery Method: HAND - Hand Delivered Leonila Days: Prior Verbal Notification: Recipient Understood Notice: Yes Recipient Signature: Yes Med Rec Note Co-signed by Attending: Coverage Notice Comment: WILL explained, signed, given, copy placed in MR Reviewer: [id number] - Vic Fuentes Notice Issued Date-Time: 03/13/2020 14:17 Notice Type: IM Discharge Notice Notice Delivered To: Family Member Relationship to Patient: Mother Mint Machine Operator Name: Delivery Method: - Leonial Days: Prior Verbal Notification: Recipient Understood Notice: Recipient Signature: Med Rec Note Co-signed by Attending: Coverage Notice Comment: Last DP export: 03/13/20 3:07 p Patient Name: SCOTTIE CURRIE Page [phone] at 1614 All edits/amendments must be made on the electronic document DICTATION DATE: 03/13/201613 PACKING AND WRAPPING SUPERVISOR: OVIDIO 03/13/201613 RPT#: [id number] DC DATE: STATUS: ADM IN [facility] [address] [place] [address] END OF REPORT
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
--- NOTE | 2020-03-13 19:33 | NUR ---
PATIENT RESTING IN BED WITH NO S/S OF DISTRESS. PATIENT DENIES NEEDS AT THIS TIME. BED IN LOWEST POSITION AND CALL LIGHT WITHIN REACH. ENCOURAGED THE PATIENT TO CALL IF SHE HAS NEEDS. WILL CONTINUE TO MONITOR.
[2020-03-13 20:00] VITALS: BP 117/71
--- NOTE | 2020-03-13 22:16 | NUR ---
ADMINISTERED MEDS PER ORDERS. PATIENT DENIES OTHER NEEDS AT THIS TIME. WILL CONTINUE TO MONITOR.
[2020-03-14] VITALS: BP 118/74
[2020-03-14 04:00] VITALS: BP 113/75
--- NOTE | 2020-03-14 07:49 | NUR ---
REC'D IN BED AWAKE AND ALERT. RESP EVEN AND UNLABORED WITH NO DISTRESS NOTED. INCONT OF BOWEL AND BLADDER WITH EDA CARE GIVEN PRN AND Q 2 HRS NEEDED. ASSESSMENT COMPLETED. C/L IN REACH AT BEDSIDE.
[2020-03-14 08:13] VITALS: BP 119/82
[2020-03-14 12:04] VITALS: BP 131/85
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
--- NOTE | 2020-03-14 13:11 | NUR ---
FAMILY HERE TO VISIT.CALL LIGHT IN REACH
[2020-03-14 16:00] VITALS: BP 126/77
--- NOTE | 2020-03-14 17:57 | NUR ---
REC'D TO ROOM 2204 VIA BED FROM ICU. RESP EVEN UNLABORED WITH NO DISTRESS NOTED. CAN EXPRESS NEEDS AND WANTS. DENIES [place] PAIN AT THIS TIME. FLAVIA ALARM IN USE. C/L IN REACH AT BEDSIDE.
--- NOTE | 2020-03-14 19:15 | NUR ---
PATIENT RESTING IN BED WITH NO S/S OF DISTRESS. BED IN LOWEST POSITION AND CALL LIGHT WITHIN REACH. ENCOURAGED THE PATIENT TO CALL IF SHE HAS NEEDS. WILL CONTINUE TO MONITOR.
[2020-03-14 20:00] VITALS: BP 123/73
--- NOTE | 2020-03-14 22:12 | NUR ---
PATIENT REFUSED NIGHT MEDS. EXPLAINED TO PATIENT WHAT MEDS ARE FOR AND IMPORTANCE. PATIENT CONTINUED TO REFUSE. WILL CONTINUE TO MONITOR.
[2020-03-15 04:00] VITALS: BP 105/71
[2020-03-15 06:44] LABS: CALC OSMOLALITY 274 mosm/kg (275-300); CALCIUM 8.3 mg/dL (8.5-10.1); CARBON DIOXIDE 30.4 mmol/L (21.0-32.0); CHLORIDE - SERUM 102 mmol/L (98-107); CREATININE - SERUM 0.4 mg/dL (0.6-1.3); GLUCOSE 75 mg/dL (74-106); MAGNESIUM - SERUM 1.9 mg/dL (1.8-2.4); PHOSPHOROUS 3.1 mg/dL (2.5-4.9); SODIUM 139 mmol/L (136-145); UREA NITROGEN 7 mg/dL (7-18); eGFR NON AFRICAN AMERICAN > 90 mL/min (90-120)
[2020-03-15 06:45] LABS: POTASSIUM - SERUM 2.8 mmol/L (3.5-5.1)
[2020-03-15 07:37] LABS: BASOPHILS 0.3 % (0-2); EOSINOPHILS 0.6 % (0-7); HEMATOCRIT 27.2 % (36.0-48.0); HEMOGLOBIN 8.1 g/dL (12-16); IMMATURE GRANULOCYTES 0.3 % (0-5); LYMPHOCYTES 12.9 % (15-50); MCH 24.9 pg (26.0-34.0); MCHC 29.8 g/dL (31.0-37.0); MCV 83.7 fL (80.0-100.0); MEAN PLATELET VOLUME 8.2 fL (7.4-10.4); MONOCYTES 7.8 % (2-11); NEUTROPHILS 78.1 % (40-80); PLATELET COUNT 525 10x3/uL (130-400); RBC 3.25 10x6/uL (4.00-5.40); RDW 15.5 % (11.5-14.5); WBC 6.7 10x3/uL (4.8-10.8)
--- NOTE | 2020-03-15 07:49 | NUR ---
RAQUEL KILPATRICK IN REGARDS TO PATIENT'S CRITICAL POTASSIUM LEVEL
[2020-03-15 08:58] VITALS: BP 119/78
--- NOTE | 2020-03-15 10:46 | NUR ---
0700 RECEIVED BEDSIDE REPORT PT AWAKE ALERT VOICES NO COMPLAINTS. ASSISTED HER IN WASHING HER FACE
--- NOTE | 2020-03-15 10:48 | NUR ---
0900 REFUSED MIRALAX, HOWEVER TOOK HER LACTULOSE
[2020-03-15 12:03] VITALS: BP 115/78
[2020-03-15 15:04] VITALS: Ht 165.1 cm; Wt 40.3 kg
--- NOTE | 2020-03-15 15:11 | NUR ---
Calorie count for 03/14/20: kcal protein [id number] 8 Lunch 230 10 Dinner 44 0 Total 493 kcal 18 gm protein Pt currently meeting ~35-40% of estimated energy needs; ~32-45% of estimated protein needs. RDN following.
[2020-03-15 18:09] VITALS: BP 116/74
--- NOTE | 2020-03-15 18:28 | NUR ---
OT NOTE: PT COMPLETED SUPINE TO SIT WITH MAX A X2. PT ATTEMPTED TO MAINTAIN TRUNK CONTROL AT EOB WITH MAX A. PT COMPLETED LUE AROM TOLERATED WITHIN AVAILABLE ROM. PT TRUNK CONTROL IS POOR. 130-154 REYNA EDWARDS COTA
[2020-03-15 20:00] VITALS: BP 122/79
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
--- NOTE | 2020-03-16 00:49 | NUR ---
I have reviewed this patient and I concur with the Shift Assessment completed by the Licensed Practical Nurse today this shift.
[2020-03-16 04:00] VITALS: BP 112/79
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
[2020-03-16 09:03] LABS: CALC OSMOLALITY 266 mosm/kg (275-300); CALCIUM 8.1 mg/dL (8.5-10.1); CARBON DIOXIDE 32.1 mmol/L (21.0-32.0); CHLORIDE - SERUM 99 mmol/L (98-107); CREATININE - SERUM 0.3 mg/dL (0.6-1.3); GLUCOSE 84 mg/dL (74-106); PHOSPHOROUS 3.6 mg/dL (2.5-4.9); SODIUM 135 mmol/L (136-145); UREA NITROGEN 8 mg/dL (7-18); eGFR NON AFRICAN AMERICAN > 90 mL/min (90-120)
[2020-03-16 09:04] LABS: POTASSIUM - SERUM 3.5 mmol/L (3.5-5.1)
[2020-03-16 09:20] LABS: BASOPHILS 0.2 % (0-2); EOSINOPHILS 0.5 % (0-7); HEMATOCRIT 27.5 % (36.0-48.0); HEMOGLOBIN 8.3 g/dL (12-16); IMMATURE GRANULOCYTES 0.2 % (0-5); LYMPHOCYTES 13.4 % (15-50); MCH 25.2 pg (26.0-34.0); MCHC 30.2 g/dL (31.0-37.0); MCV 83.3 fL (80.0-100.0); MONOCYTES 4.9 % (2-11); NEUTROPHILS 80.8 % (40-80); PLATELET COUNT 539 10x3/uL (130-400); RDW 15.4 % (11.5-14.5); WBC 6.5 10x3/uL (4.8-10.8)
[2020-03-16 09:21] VITALS: BP 119/82
[2020-03-16 12:38] VITALS: BP 122/80
--- NOTE | 2020-03-16 13:00 | NUR ---
OT NOTE: PERFORMED BED MOB WITH MOD ASSIST X 2; SITTING BALANCE ON EOB WITH ASSIST; PERFORMED REACHING ACT TO IMPROVE TRUNK STRENGTH WITH MOD ASSIST; UE A/AROM EXS AND LE EXS WHILE ON EOB WITH MAX ASSIST FOR SITTING BALANCE. BACK TO BED WITH MAX ASSIST; REPOSITIONED PT AND POSITIONED ON HER SIDE TO PREVENT SKIN BREAKDOWN. ASSISTANCE FROM JANIYA FOR TMT TODAY ALICE WISE, OTR/L [phone]
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
--- NOTE | 2020-03-16 14:49 | NUR ---
OT NOTE: PT COMPLETED SUPINE TO SIT WITH MAX A X2. PT COMPLETED SITTING BALANCE WITH MAX A. PT COMPLETED BUE AROM WHILE SEATED AT EOB. PT REQUIRED TOTAL A WITH LB HYGIENE TASKS. [id number] REYNA AGUILAR COTA
[2020-03-16 17:46] VITALS: BP 115/68
--- NOTE | 2020-03-16 18:45 | NUR ---
PATIENT IN BED WITH NO COMPLAINTS OR SIGNS OF DISTRESS. LAYING IN BED WITH CALL LIGHT WITHIN REACH.
--- NOTE | 2020-03-16 23:22 | NUR ---
PATIENT IN ALERT TO SELF. MEDAICAL HISTORY INCLUDES CEREBRAL PALSY. SPEACH IS GARABLED. HAS NO IV IN PLACE ON ROOM AIR HEARING IMPARIED. RESTING IN BED WITH NO NEEDS AT THIS TIME WATER AND CALL LIGHT IN REACH. BED LOW CHECKED OFTEN FOR NEEDS AND SAFETY.
[2020-03-17] VITALS (7 sets, daily range): BP systolic 96–121; BP diastolic 67–83
[2020-03-17 08:35] LABS: BASOPHILS 0.2 % (0-2); EOSINOPHILS 0.7 % (0-7); HEMATOCRIT 28.7 % (36.0-48.0); HEMOGLOBIN 8.4 g/dL (12-16); IMMATURE GRANULOCYTES 0.2 % (0-5); LYMPHOCYTES 14.9 % (15-50); MCH 24.4 pg (26.0-34.0); MCHC 29.3 g/dL (31.0-37.0); MCV 83.4 fL (80.0-100.0); MEAN PLATELET VOLUME 8.2 fL (7.4-10.4); MONOCYTES 6.6 % (2-11); NEUTROPHILS 77.4 % (40-80); PLATELET COUNT 515 10x3/uL (130-400); RBC 3.44 10x6/uL (4.00-5.40); RDW 15.6 % (11.5-14.5); WBC 6.1 10x3/uL (4.8-10.8)
[2020-03-17 08:56] LABS: ALBUMIN 1.5 g/dL (3.4-5.0); ALKALINE PHOSPHATASE 93 U/L (30-120); ALT (SGPT) 7 U/L (10-68); BILIRUBIN - TOTAL 0.12 mg/dL (0.2-1.3); CALC OSMOLALITY 270 mosm/kg (275-300); CALCIUM 8.1 mg/dL (8.5-10.1); CARBON DIOXIDE 33.1 mmol/L (21.0-32.0); CHLORIDE - SERUM 101 mmol/L (98-107); GLUCOSE 77 mg/dL (74-106); POTASSIUM - SERUM 3.2 mmol/L (3.5-5.1); PROTEIN - SERUM 7.8 g/dL (6.4-8.2); SODIUM 137 mmol/L (136-145); UREA NITROGEN 7 mg/dL (7-18)
[2020-03-17 08:58] LABS: CREATININE - SERUM 0.4 mg/dL (0.6-1.3); eGFR NON AFRICAN AMERICAN > 90 mL/min (90-120)
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
--- NOTE | 2020-03-17 18:45 | NUR ---
PATIENT IN BED WITH NO COMPLAINTS. BA ON. CALL LIGHT WITHIN REACH.
--- NOTE | 2020-03-17 20:34 | NUR ---
PT MOTHER CALLED TO CHECK ON PT. PT RR E/U VITALS STABLE. NO S/S OF DISTRESS. ASSISTED PT ONTO BED LYON PT HAD ABOUT 100ML OUTPUT. BED ALARM IN PLACE, BED LOW CALL LIGHT WITHIN REACH. WILL CONTINUE TO MONITOR.
--- NOTE | 2020-03-17 21:11 | NUR ---
PT REFUSED TO TAKE 2100 MEDICATIONS AT THIS TIME. WILL TRY AGIAN AT 0. WILL CONTINUE TO MONITOR.
--- NOTE | 2020-03-17 22:08 | NUR ---
OT NOTE: PT REQUIRED TOTAL A FOR SUPINE TO SIT AT EOB. PT REQUIRED TOTAL A FOR SITTING AT EOB. PT DID DEMONSTRATE TRUNK BALANCE AT EOB FOR 30 SECONDS WITH SBA. PT WITHOUT PHYSICAL SUPPORT DURING THIS 30 SECONDS BROUGHT LUE UP TO FACE FOR HYGIENE TASK. PT COMPLETED BUE AROM TOLERATED. PT EXHIBITED AN INCREASE IN AROM WITH RUE. PT DID VERY WELL AND WAS COOPERATIVE. PT REQUIRED REST BREAKS. [phone] THANK YOU,JANIYA DYE
--- NOTE | 2020-03-17 22:34 | NUR ---
OT NOTE: PT COMPLETED UB FACE/HAND HYGIENE TASKS WITH SETUP-MIN A. [phone] THANK YOU,JANIYA DYE
[2020-03-18] VITALS: BP 123/82
[2020-03-18 04:00] VITALS: BP 105/72
[2020-03-18 06:15] LABS: ALBUMIN 1.5 g/dL (3.4-5.0); ALKALINE PHOSPHATASE 92 U/L (30-120); BILIRUBIN - TOTAL 0.19 mg/dL (0.2-1.3); CALCIUM 8.3 mg/dL (8.5-10.1); CARBON DIOXIDE 28.9 mmol/L (21.0-32.0); CHLORIDE - SERUM 102 mmol/L (98-107); CREATININE - SERUM 0.5 mg/dL (0.6-1.3); GLUCOSE 74 mg/dL (74-106); MAGNESIUM - SERUM 2.1 mg/dL (1.8-2.4); SODIUM 136 mmol/L (136-145); eGFR NON AFRICAN AMERICAN > 90 mL/min (90-120)
[2020-03-18 06:19] LABS: ALT (SGPT) 6 U/L (10-68); CALC OSMOLALITY 269 mosm/kg (275-300); POTASSIUM - SERUM 4.3 mmol/L (3.5-5.1); UREA NITROGEN 9 mg/dL (7-18)
[2020-03-18 06:22] LABS: HEMATOCRIT 30.2 % (36.0-48.0); MCH 25.2 pg (26.0-34.0); MCHC 29.8 g/dL (31.0-37.0); MCV 84.6 fL (80.0-100.0); MEAN PLATELET VOLUME 8.2 fL (7.4-10.4); PLATELET COUNT 520 10x3/uL (130-400); RBC 3.57 10x6/uL (4.00-5.40); RDW 15.9 % (11.5-14.5); WBC 6.6 10x3/uL (4.8-10.8)
[2020-03-18 06:48] LABS: LYMPHOCYTES 13 % (15-50); MONOCYTES 1 % (2-11); NEUTROPHILS 86 % (40-80); PLATELET ESTIMATE INCREASED
--- NOTE | 2020-03-18 07:06 | NUR ---
I have reviewed this patient and I concur with the Shift Assessment completed by the Licensed Practical Nurse today this shift.
[2020-03-18 09:03] VITALS: BP 113/75
[2020-03-18] MEDS ORDERED: ZOFRAN ODT4 MG/UDTAB PO (10:11)
[2020-03-18] MEDS ORDERED: CHRONULAC30 ML PO (10:11)
[2020-03-18] MEDS ORDERED: K-DUR20 MEQ PO (10:11)
[2020-03-18] MEDS ORDERED: COLACE100 MG PO (10:11)
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
[2020-03-18 13:59] VITALS: BP 116/79
--- NOTE | 2020-03-18 17:08 | NUR ---
OT NOTE: PT REQUIRED MAX/TOTAL A WITH SUPINE TO SIT. PT COMPLETED EOB SITTING WITH MAX-SBA. PT FATIGUES EASILY AND REQUIRED INCREASED ASSISTANCE WITH SITTING BALANCE. PT COMPLETED HAIR BRUSHING WITH MOD A USING LUE. [phone] THANK YOU,JANIYA DYE
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
== END 2020-03-18 16:13 | DRG 391 ==
LOC: D.ER 16:34 → D.MS 21:33 → OBSVTIME 21:33 → D.MS 03-12 14:57
PROVIDERS: Emergency Medicine; Family Medicine; Family Medicine Adult Medicine; ADMIT Family Medicine; ATTEND Family Medicine
DX: K59.00 Constipation, unspecified (principal); E43 Unspecified severe protein-calorie malnutrition; Z68.1 Body mass index [BMI] 19.9 or less, adult; D64.9 Anemia, unspecified; G80.9 Cerebral palsy, unspecified; G40.909 Epilepsy, unspecified, not intractable, without status epilepticus; Z79.01 Long term (current) use of anticoagulants; Z86.711 Personal history of pulmonary embolism; K31.84 Gastroparesis; H91.90 Unspecified hearing loss, unspecified ear